=== PATIENT | female | born 1950 | race Two or more races ===

== ENCOUNTER 2019-04-07 20:07 | Emergency (ER) | payer MEDICARE, OTHER ==
[~2019-04-07] VITALS: Ht 165.1 cm; Wt 78.9 kg
[2019-04-07] MEDS ORDERED: ONDANSETRON HCL 4 MG/2 ML VIAL IV ONE (21:15)
[2019-04-07] MEDS ORDERED: MORPHINE SULFATE 4 MG/ML SYR/VIAL IV ONE (21:15)
[2019-04-07] MEDS ORDERED: HYDROmorphone HCL 2 MG/ML VL IV ONE (21:30)
[2019-04-07 22:55] LABS: INR < 0.93 (0.9-1.15); Partial Thromboplastin Time 22.7 sec (23.64-32.05)
[2019-04-07 22:56] LABS: Alanine Aminotransferase 18 U/L (13-56); Albumin 3.7 g/dL (3.4-5.0); Anion Gap 9 (5-15); Aspartate Aminotransferase 11 U/L (15-37); BUN/Creatinine Ratio 15.9; Blood Urea Nitrogen 17 mg/dL (7-18); Calcium 9.4 mg/dL (8.5-10.1); Carbon Dioxide 27 mmol/L (21-32); Chloride 106 mmol/L (98-107); GFR African American 66 mL/min; GFR Non-African American 55 mL/min; Glucose 114 mg/dL (74-106); Potassium 3.2 mmol/L (3.5-5.1); Sodium 142 mmol/L (136-145)
[2019-04-07 22:57] LABS: Hematocrit 41.6 % (36.0-46.0); Hemoglobin 13.5 g/dL (12.2-16.2); Mean Corpuscular Hemoglobin 27.9 pg (28.0-32.0); Mean Corpuscular Hgb Conc. 32.5 g/dL (32.0-36.0); Mean Corpuscular Volume 85.9 fL (80.0-100.0); Platelet Count (auto) 204 10^3/uL (140-450); Red Blood Cells 4.84 10^6/uL (4.0-5.20); Red Cell Distribution Width 14.4 % (11.8-14.3); White Blood Cell 6.2 10^3/uL (4.4-10.8)
[2019-04-07 23:01] LABS: Alkaline Phosphatase 77 U/L (45-117); Band Neutrophils % (manual) 0; Basophils % (manual) 0 (0.0-2.0); Bilirubin, Total 0.4 mg/dL (0.2-1.0); Blast Cells 0; Metamyelocytes % 0; Myelocytes % 0; Promyelocytes % 0; Reactive Lymphocytes 0; Total Protein 7.6 g/dL (6.4-8.2)
[2019-04-07 23:08] LABS: Urine Bacteria NONE SEEN /hpf (None Seen); Urine Blood Negative /uL (Negative); Urine Specific Gravity 1.014 (1.001-1.035); Urine WBC 1 /hpf (0 - 5)
[2019-04-07 23:31] LABS: Eosinophils % (manual) 2 (0-7); Lymphocytes % (manual) 69 (10.0-50.0); Monocytes % (manual) 8 (0-12)
[2019-04-08 00:20] VITALS: BP 91/68
== END 2019-04-08 00:28 | disposition home or self-care (01) ==
LOC: EDUNIT# 20:14 → ER 20:14
DX: S16.1XXA Strain of muscle, fascia and tendon at neck level, initial encounter (principal); S39.012A Strain of muscle, fascia and tendon of lower back, initial encounter; R51 Headache; M15.9 Polyosteoarthritis, unspecified; J44.9 Chronic obstructive pulmonary disease, unspecified; E11.9 Type 2 diabetes mellitus without complications; I11.0 Hypertensive heart disease with heart failure; I50.9 Heart failure, unspecified; E07.9 Disorder of thyroid, unspecified; F17.210 Nicotine dependence, cigarettes, uncomplicated; Z88.5 Allergy status to narcotic agent; Z90.710 Acquired absence of both cervix and uterus; W07.XXXA Fall from chair, initial encounter; Y93.89 Activity, other specified; Y99.8 Other external cause status; Y92.512 Supermarket, store or market as the place of occurrence of the external cause
CPT/HCPCS: 36415; 70450; 72125; 72131; 73700; 80053; 81001; 83880; 84484; 85007; 85027; 85610; 85730; 93005; 94761; 96374; 96375; J2405

== ENCOUNTER → 2019-04-07 | Outpatient (CLI) | payer MEDICARE, OTHER ==
[~2019-04-07] MED LIST: ALPR1TAB2 PO; ASPI325T4 PO; ATOR10TA PO; CARI-277 PO; ERGO2000 PO; HYDR-3682 PO; HYDR-4683 PO; LEV50T PO; OMEP20TA PO; POTA-167 PO
[2019-04-07 13:37] LABS: Cholesterol 143 mg/dL (< 200)
[2019-04-07 13:40] LABS: HDL Cholesterol 65 mg/dL (40-59); LDL Cholesterol 74 mg/dL (< 100); Triglycerides 68 mg/dL (< 150)
== END | disposition home or self-care (01) ==
LOC: LAB 12:18
PROVIDERS: ATTEND Internal Medicine
DX: E78.5 Hyperlipidemia, unspecified (principal); R79.89 Other specified abnormal findings of blood chemistry; I11.0 Hypertensive heart disease with heart failure; I50.9 Heart failure, unspecified; Z79.899 Other long term (current) drug therapy
CPT/HCPCS: 36415; 80061; 82306; 83036; 84443

== ENCOUNTER 2019-04-08 09:11 | Inpatient (IN) | payer MEDICARE, OTHER | END 2019-04-12 16:42 | disposition home or self-care (01) | LOC: ER 09:11 → TELE 09:12 → TELE-EAST 13:40 | DX: I95.0 Idiopathic hypotension (principal); E87.2 Acidosis; E87.6 Hypokalemia; I12.9 Hypertensive chronic kidney disease with stage 1 through stage 4 chronic kidney disease, or unspecified chronic kidney disease; N18.3 Chronic kidney disease, stage 3 (moderate); E86.1 Hypovolemia ==

== ENCOUNTER 2019-04-13 23:21 | Emergency (ER) | payer MEDICARE, OTHER ==
[~2019-04-13] VITALS: Ht 165.1 cm; Wt 78.9 kg
[2019-04-13 23:46] VITALS: BP 116/72
[2019-04-14] LABS: Basophils # (auto) 0.1 uL; Eosinophils # (auto) 0.2 uL; Eosinophils % (auto) 2.2 % (0.0-7.0); Hematocrit 37.5 % (36.0-46.0); Hemoglobin 12.5 g/dL (12.2-16.2); Lymphocytes # (auto) 3.8 uL; Lymphocytes % (auto) 53.5 % (10.0-50.0); Mean Corpuscular Hemoglobin 28.5 pg (28.0-32.0); Mean Corpuscular Hgb Conc. 33.3 g/dL (32.0-36.0); Mean Corpuscular Volume 85.6 fL (80.0-100.0); Monocytes # (auto) 0.4 uL; Monocytes % (auto) 5.1 % (0.0-12.0); Neutrophils # (auto) 2.6 uL; Neutrophils % (auto) 37.2 % (37.0-80.0); Nucleated Red Blood Cells % 0.1 %; Platelet Count (auto) 228 10^3/uL (140-450); Red Blood Cells 4.38 10^6/uL (4.0-5.20); Red Cell Distribution Width 14.5 % (11.8-14.3)
[2019-04-14 00:18] LABS: Urine Bacteria NONE SEEN /hpf (None Seen); Urine Blood Negative /uL (Negative); Urine Specific Gravity 1.018 (1.001-1.035); Urine WBC 1 /hpf (0 - 5)
[2019-04-14 00:19] LABS: Albumin 3.6 g/dL (3.4-5.0); BUN/Creatinine Ratio 14.6; Calcium 8.7 mg/dL (8.5-10.1); Potassium 3.8 mmol/L (3.5-5.1)
[2019-04-14 00:21] LABS: Bilirubin, Total 0.3 mg/dL (0.2-1.0); Total Protein 7.5 g/dL (6.4-8.2)
== END 2019-04-14 04:31 | disposition left against medical advice (07) ==
LOC: ER 23:23
DX: M54.5 Low back pain (principal); R10.9 Unspecified abdominal pain; R30.0 Dysuria; Z53.21 Procedure and treatment not carried out due to patient leaving prior to being seen by health care provider
CPT/HCPCS: 36415; 80053; 81001; 85025

== ENCOUNTER → 2019-04-21 | Outpatient (CLI) | payer MEDICARE, OTHER | END | disposition home or self-care (01) | LOC: LAB 16:10 | PROVIDERS: ATTEND Internal Medicine | DX: E78.5 Hyperlipidemia, unspecified (principal); I10 Essential (primary) hypertension; R79.89 Other specified abnormal findings of blood chemistry | CPT/HCPCS: 82270 ==

== ENCOUNTER → 2019-05-12 | Outpatient (CLI) | payer MEDICARE, OTHER ==
[~2019-05-12] MED LIST changes: +AMLO10CA42 PO; +ATEN-60 PO; +FURO20TA3 PO; +HYDR-531 PO; +POTA20TA53 PO
[2019-05-12 12:22] LABS: Free T4 (Free Thyroxine) 1.37 ng/dL (0.89-1.76)
[2019-05-12 12:23] LABS: Free T3 3.62 pg/mL (2.3-4.2)
== END | disposition home or self-care (01) ==
LOC: LAB 11:01
PROVIDERS: ATTEND Internal Medicine
DX: E11.9 Type 2 diabetes mellitus without complications (principal); E03.9 Hypothyroidism, unspecified; I11.0 Hypertensive heart disease with heart failure; I50.9 Heart failure, unspecified
CPT/HCPCS: 36415; 82043; 83036; 84439; 84443; 84481

== ENCOUNTER 2019-05-16 08:45 | Day surgery (SDC) | payer MEDICARE, OTHER ==
[2019-05-14 10:14] LABS: Basophils # (auto) 0 uL; Basophils % (auto) 0.8 % (0.0-2.0); Eosinophils # (auto) 0.1 uL; Eosinophils % (auto) 2.9 % (0.0-7.0); Hematocrit 39.4 % (36.0-46.0); Hemoglobin 13.3 g/dL (12.2-16.2); Lymphocytes # (auto) 2.5 uL; Mean Corpuscular Hemoglobin 28.9 pg (28.0-32.0); Mean Corpuscular Hgb Conc. 33.6 g/dL (32.0-36.0); Mean Corpuscular Volume 85.8 fL (80.0-100.0); Monocytes # (auto) 0.3 uL; Monocytes % (auto) 7.8 % (0.0-12.0); Neutrophils # (auto) 1.2 uL; Platelet Count (auto) 212 10^3/uL (140-450); Red Blood Cells 4.59 10^6/uL (4.0-5.20); Red Cell Distribution Width 14.9 % (11.8-14.3); White Blood Cell 4.1 10^3/uL (4.4-10.8)
[2019-05-14 10:16] LABS: Lymphocytes % (auto) 60.5 % (10.0-50.0)
[2019-05-14 10:24] LABS: INR 0.93 (0.9-1.15)
[2019-05-14 10:33] LABS: Potassium 3.5 mmol/L (3.5-5.1)
[2019-05-14 10:41] LABS: Bilirubin, Total 0.7 mg/dL (0.2-1.0); Calcium 9.6 mg/dL (8.5-10.1); Total Protein 7.6 g/dL (6.4-8.2)
[~2019-05-16] VITALS: Ht 166.4 cm; Wt 77.1 kg
[~2019-05-16 08:45] MED LIST changes: +AMLO10CA33 PO; -AMLO10CA42 PO; -HYDR-4683 PO; -OMEP20TA PO; -POTA-167 PO; +POTA-220 PO; -POTA20TA53 PO
[2019-05-16] MEDS ORDERED: ANGIOMAX 250 MG VIAL IV ONE (11:09)
[2019-05-16] MEDS ORDERED: LIDOCAINE 2%HCL (LOCAL ANESTH.) INJ 20ML MDV ONE (11:09)
[2019-05-16] MEDS ORDERED: MIDAZOLAM HCL 1MG/1ML-2 ML VIAL ONE (11:09)
[2019-05-16] MEDS ORDERED: SODIUM CHL 0.9% 0 ML ONE (11:09)
[2019-05-16] MEDS ORDERED: fentaNYL CITRATE 100 MCG/2 ML VL ONE (11:09)
[2019-05-16] MEDS ORDERED: IOHEXOL 350 MG/ML 100ML IJ ONE (11:11)
[2019-05-16] MEDS ORDERED: VERAPAMIL 2.5MG/ML INJ 2ML VIAL IV ONE (11:11)
[2019-05-16] MEDS ORDERED: ONDANSETRON HCL 4 MG/2 ML VIAL ONE (11:22)
[2019-05-16] MEDS ORDERED: HEPARIN SODIUM (PORCINE) 5000 UNITS/ML 1ML VIAL ONE (12:04)
== END 2019-05-16 14:05 | disposition home or self-care (01) ==
LOC: CATH 08:45
PROVIDERS: ATTEND Internal Medicine
DX: I20.9 Angina pectoris, unspecified (principal); I11.0 Hypertensive heart disease with heart failure; I50.9 Heart failure, unspecified; I25.2 Old myocardial infarction; E78.5 Hyperlipidemia, unspecified; E03.9 Hypothyroidism, unspecified; E11.9 Type 2 diabetes mellitus without complications; J44.9 Chronic obstructive pulmonary disease, unspecified; F17.210 Nicotine dependence, cigarettes, uncomplicated; F41.9 Anxiety disorder, unspecified; Z79.84 Long term (current) use of oral hypoglycemic drugs; Z79.82 Long term (current) use of aspirin; Z79.899 Other long term (current) drug therapy; Z90.710 Acquired absence of both cervix and uterus; Z98.890 Other specified postprocedural states; Z95.818 Presence of other cardiac implants and grafts; Z88.5 Allergy status to narcotic agent; Z82.49 Family history of ischemic heart disease and other diseases of the circulatory system
CPT/HCPCS: 36415; 80053; 85025; 85610; 85730; 93458; C1769; C1887; C1894; J1644; J2250; J3010; J7030; Q9967; 99152; 99153; J2405

== ENCOUNTER → 2019-06-17 | Outpatient (CLI) | payer MEDICARE, OTHER ==
[2019-06-17 10:21] LABS: Hematocrit 38.2 % (36.0-46.0); Hemoglobin 12.5 g/dL (12.2-16.2); Mean Corpuscular Hemoglobin 28.4 pg (28.0-32.0); Mean Corpuscular Hgb Conc. 32.8 g/dL (32.0-36.0); Mean Corpuscular Volume 86.4 fL (80.0-100.0); Platelet Count (auto) 206 10^3/uL (140-450); Red Blood Cells 4.42 10^6/uL (4.0-5.20); White Blood Cell 3.6 10^3/uL (4.4-10.8)
[2019-06-17 10:31] LABS: Band Neutrophils % (manual) 0; Blast Cells 0; Metamyelocytes % 0; Myelocytes % 0; Promyelocytes % 0; Reactive Lymphocytes 0
[2019-06-17 12:44] LABS: Basophils % (manual) 1 (0.0-2.0); Eosinophils % (manual) 1 (0-7); Lymphocytes % (manual) 63 (10.0-50.0); Monocytes % (manual) 8 (0-12)
== END | disposition home or self-care (01) ==
LOC: LAB 09:50
PROVIDERS: ATTEND Internal Medicine
DX: E11.9 Type 2 diabetes mellitus without complications (principal); I11.0 Hypertensive heart disease with heart failure; I50.9 Heart failure, unspecified
CPT/HCPCS: 36415; 85007; 85027

== ENCOUNTER → 2019-07-25 | Outpatient (CLI) | payer MEDICARE, OTHER ==
[2019-07-25 08:43] LABS: Hematocrit 37.5 % (36.0-46.0); Hemoglobin 12.3 g/dL (12.2-16.2); Mean Corpuscular Hemoglobin 28.4 pg (28.0-32.0); Mean Corpuscular Hgb Conc. 32.7 g/dL (32.0-36.0); Mean Corpuscular Volume 86.9 fL (80.0-100.0); Platelet Count (auto) 217 10^3/uL (140-450); Red Blood Cells 4.31 10^6/uL (4.0-5.20); Red Cell Distribution Width 15.3 % (11.8-14.3); White Blood Cell 4.5 10^3/uL (4.4-10.8)
[2019-07-25 08:54] LABS: Basophils % (manual) 0 (0.0-2.0); Blast Cells 0; Metamyelocytes % 0; Myelocytes % 0; Promyelocytes % 0; Reactive Lymphocytes 0
[2019-07-25 09:46] LABS: Band Neutrophils % (manual) 3; Eosinophils % (manual) 5 (0-7); Lymphocytes % (manual) 53 (10.0-50.0); Monocytes % (manual) 6 (0-12)
== END | disposition home or self-care (01) ==
LOC: LAB 08:19
PROVIDERS: ATTEND Internal Medicine
DX: E11.9 Type 2 diabetes mellitus without complications (principal); I11.0 Hypertensive heart disease with heart failure; I50.9 Heart failure, unspecified
CPT/HCPCS: 36415; 85007; 85027

== ENCOUNTER 2019-07-28 15:41 | Emergency (ER) | payer MEDICARE, OTHER ==
[~2019-07-28] VITALS: Ht 165.1 cm; Wt 78.9 kg
[2019-07-28] MEDS ORDERED: KETOROLAC TROMETH 60MG/2ML VIAL IM ONE (19:15)
[2019-07-28 19:30] VITALS: BP 140/88
== END 2019-07-28 21:32 | disposition home or self-care (01) ==
LOC: ER 15:41
DX: S73.102A Unspecified sprain of left hip, initial encounter (principal); M62.830 Muscle spasm of back; I48.91 Unspecified atrial fibrillation; J44.9 Chronic obstructive pulmonary disease, unspecified; E78.5 Hyperlipidemia, unspecified; I11.0 Hypertensive heart disease with heart failure; I50.9 Heart failure, unspecified; I25.2 Old myocardial infarction; E07.9 Disorder of thyroid, unspecified; F17.210 Nicotine dependence, cigarettes, uncomplicated; Z88.5 Allergy status to narcotic agent; Z79.82 Long term (current) use of aspirin; Z79.899 Other long term (current) drug therapy; Z90.710 Acquired absence of both cervix and uterus; Z98.61 Coronary angioplasty status; V49.49XA Driver injured in collision with other motor vehicles in traffic accident, initial encounter; Y93.89 Activity, other specified; Y99.8 Other external cause status; Y92.89 Other specified places as the place of occurrence of the external cause
CPT/HCPCS: 72100; 72220; 73502; 96372; 99283; J1885

== ENCOUNTER → 2019-08-28 | Outpatient (CLI) | payer MEDICARE, OTHER ==
[2019-08-28 08:55] LABS: Hematocrit 41.8 % (36.0-46.0); Hemoglobin 13.3 g/dL (12.2-16.2); Mean Corpuscular Hemoglobin 28.2 pg (28.0-32.0); Mean Corpuscular Hgb Conc. 31.9 g/dL (32.0-36.0); Mean Corpuscular Volume 88.1 fL (80.0-100.0); Platelet Count (auto) 212 10^3/uL (140-450); Red Blood Cells 4.74 10^6/uL (4.0-5.20); Red Cell Distribution Width 15.1 % (11.8-14.3)
[2019-08-28 08:58] LABS: Urine Blood Negative /uL (Negative)
[2019-08-28 09:05] LABS: Band Neutrophils % (manual) 0; Basophils % (manual) 0 (0.0-2.0); Blast Cells 0; Metamyelocytes % 0; Myelocytes % 0; Promyelocytes % 0; Reactive Lymphocytes 0
[2019-08-28 09:09] LABS: INR < 0.93 (0.9-1.15); Partial Thromboplastin Time 24.5 sec (23.64-32.05)
[2019-08-28 09:19] LABS: Eosinophils % (manual) 1 (0-7); Lymphocytes % (manual) 56 (10.0-50.0); Monocytes % (manual) 2 (0-12)
[2019-08-28 09:39] LABS: Albumin 3.8 g/dL (3.4-5.0); Calcium 8.9 mg/dL (8.5-10.1); Potassium 3.7 mmol/L (3.5-5.1)
[2019-08-28 09:41] LABS: BUN/Creatinine Ratio 17.6
[2019-08-28 09:43] LABS: Bilirubin, Total 0.5 mg/dL (0.2-1.0); Total Protein 7.8 g/dL (6.4-8.2)
== END | disposition home or self-care (01) ==
LOC: LAB 08:28
PROVIDERS: ATTEND Orthopaedic Surgery Adult Reconstructive Orthopaedic Surgery
DX: Z01.812 Encounter for preprocedural laboratory examination (principal); I11.0 Hypertensive heart disease with heart failure; I50.9 Heart failure, unspecified
CPT/HCPCS: 36415; 80053; 81003; 85007; 85027; 85610; 85730

== ENCOUNTER → 2019-09-12 | Outpatient (CLI) | payer MEDICARE, OTHER ==
[2019-09-12 08:53] LABS: Folate (Folic Acid) 12.6 ng/mL (5.38-24)
== END | disposition home or self-care (01) ==
LOC: LAB 07:26
PROVIDERS: ATTEND Psychiatry & Neurology Neurology
DX: G62.9 Polyneuropathy, unspecified (principal); I48.91 Unspecified atrial fibrillation; I11.0 Hypertensive heart disease with heart failure; I50.9 Heart failure, unspecified; J44.9 Chronic obstructive pulmonary disease, unspecified; E78.5 Hyperlipidemia, unspecified; I25.2 Old myocardial infarction; F17.210 Nicotine dependence, cigarettes, uncomplicated; Z98.61 Coronary angioplasty status; Z90.710 Acquired absence of both cervix and uterus; Z88.5 Allergy status to narcotic agent
CPT/HCPCS: 82607; 82746; 84155; 84165

== ENCOUNTER → 2019-10-07 | Outpatient (CLI) | payer MEDICARE, OTHER | END | disposition home or self-care (01) | LOC: XY 07:09 | PROVIDERS: ATTEND Internal Medicine | DX: I73.9 Peripheral vascular disease, unspecified (principal); M79.605 Pain in left leg; M79.604 Pain in right leg | CPT/HCPCS: 93925 ==

== ENCOUNTER → 2019-12-03 | Outpatient (CLI) | payer MEDICARE, OTHER ==
[2019-12-03 12:09] LABS: Urine WBC None Seen /hpf (0 - 5)
[2019-12-03 12:17] LABS: Basophils # (auto) 0 uL; Basophils % (auto) 0.8 % (0.0-2.0); Eosinophils # (auto) 0.1 uL; Hematocrit 38.5 % (36.0-46.0); Hemoglobin 12.8 g/dL (12.2-16.2); Mean Corpuscular Hemoglobin 29.5 pg (28.0-32.0); Mean Corpuscular Hgb Conc. 33.4 g/dL (32.0-36.0); Mean Corpuscular Volume 88.3 fL (80.0-100.0); Monocytes # (auto) 0.3 uL; Monocytes % (auto) 7.6 % (0.0-12.0); Neutrophils # (auto) 1.5 uL; Neutrophils % (auto) 38.6 % (37.0-80.0); Nucleated Red Blood Cells % 0.1 %; Platelet Count (auto) 184 10^3/uL (140-450); Red Blood Cells 4.36 10^6/uL (4.0-5.20); Red Cell Distribution Width 15.8 % (11.8-14.3); White Blood Cell 3.9 10^3/uL (4.4-10.8)
[2019-12-03 12:31] LABS: INR 0.99 (0.9-1.15); Partial Thromboplastin Time 23.9 sec (23.64-32.05)
[2019-12-03 12:59] LABS: Urine Bacteria NONE SEEN /hpf (None Seen); Urine Blood Negative /uL (Negative); Urine Specific Gravity 1.024 (1.001-1.035)
[2019-12-03 13:01] LABS: Potassium 3.6 mmol/L (3.5-5.1)
[2019-12-03 13:14] LABS: Albumin 3.5 g/dL (3.4-5.0); BUN/Creatinine Ratio 12.3; Bilirubin, Total 0.7 mg/dL (0.2-1.0); Calcium 8.9 mg/dL (8.5-10.1); Total Protein 7.2 g/dL (6.4-8.2)
== END | disposition home or self-care (01) ==
LOC: LAB 11:29
DX: Z01.818 Encounter for other preprocedural examination (principal); Z79.01 Long term (current) use of anticoagulants
CPT/HCPCS: 36415; 80053; 81001; 85025; 85610; 85730

== ENCOUNTER → 2019-12-29 | Outpatient (CLI) | payer MEDICARE, OTHER ==
[~2019-12-29] MED LIST changes: -AMLO10CA33 PO; -ASPI325T4 PO; -ATEN-60 PO; -FURO20TA3 PO; +NITR0.4S29 SL; -POTA-220 PO
[2019-12-29 14:21] LABS: Basophils # (auto) 0.1 10 ^3/uL (0-0.2); Basophils % (auto) 1.3 % (0.0-2.0); Eosinophils # (auto) 0.2 10 ^3/uL (0-0.8); Eosinophils % (auto) 5.1 % (0.0-7.0); Hematocrit 34.3 % (36.0-46.0); Hemoglobin 10.9 g/dL (12.2-16.2); Lymphocytes # (auto) 1.9 10 ^3/uL (0.4-5.4); Lymphocytes % (auto) 47.1 % (10.0-50.0); Mean Corpuscular Hemoglobin 28.6 pg (28.0-32.0); Mean Corpuscular Hgb Conc. 31.8 g/dL (32.0-36.0); Mean Corpuscular Volume 89.9 fL (80.0-100.0); Monocytes # (auto) 0.4 10 ^3/uL (0-1.3); Monocytes % (auto) 8.6 % (0.0-12.0); Neutrophils # (auto) 1.6 10 ^3/uL (1.6-8.6); Neutrophils % (auto) 37.9 % (37.0-80.0); Nucleated Red Blood Cells % 0.1 %; Platelet Count (auto) 350 10^3/uL (140-450); Red Blood Cells 3.81 10^6/uL (4.0-5.20); Red Cell Distribution Width 16.2 % (11.8-14.3); White Blood Cell 4.1 10^3/uL (4.4-10.8)
== END | disposition home or self-care (01) ==
LOC: LAB 14:03
PROVIDERS: ATTEND Internal Medicine
DX: D64.9 Anemia, unspecified (principal)
CPT/HCPCS: 36415; 85025

== ENCOUNTER → 2020-03-31 | Outpatient (CLI) | payer MEDICARE, OTHER ==
[~2020-03-31] MED LIST changes: +ATEN-60 PO; +BACL10TA PO; +CYCL10TA6 PO; +ERGO1CAP23 PO; +FAMO20TA10 PO; +FAMO40TA49 PO; +FURO1TAB33 PO; +HYDR25TA4 PO; +LEVO125T7 PO; +MAGNSOL PO; +METF-370 PO; +PANT40T PO; +POTA-180 PO; +POTA10TA51 PO; +RIVA20TA PO
[2020-03-31 13:16] LABS: Cholesterol 145 mg/dL (< 200); HDL Cholesterol 66 mg/dL (40-59); LDL Cholesterol 66 mg/dL (< 100); Triglycerides 75 mg/dL (< 150)
== END | disposition home or self-care (01) ==
LOC: LAB 11:58
PROVIDERS: ATTEND Internal Medicine
DX: E11.9 Type 2 diabetes mellitus without complications (principal); E78.5 Hyperlipidemia, unspecified; J44.9 Chronic obstructive pulmonary disease, unspecified
CPT/HCPCS: 36415; 80061; 82043; 83036

== ENCOUNTER 2020-04-13 09:17 | Inpatient (IN) | payer MEDICARE, OTHER ==
[~2020-04-13] VITALS: Ht 165.1 cm; Wt 79.8 kg
[~2020-04-13 09:17] MED LIST changes: -ATEN-60 PO; -BACL10TA PO; -CYCL10TA6 PO; -ERGO1CAP23 PO; -FAMO20TA10 PO; -FAMO40TA49 PO; -FURO1TAB33 PO; -HYDR25TA4 PO; -LEVO125T7 PO; -MAGNSOL PO; -METF-370 PO; -PANT40T PO; -POTA-180 PO; -POTA10TA51 PO; -RIVA20TA PO
[2020-04-13 10:05] LABS: Hematocrit 38.2 % (36.0-46.0); Hemoglobin 12.4 g/dL (12.2-16.2); Mean Corpuscular Hemoglobin 26.5 pg (28.0-32.0); Mean Corpuscular Hgb Conc. 32.4 g/dL (32.0-36.0); Mean Corpuscular Volume 81.9 fL (80.0-100.0); Platelet Count (auto) 211 10^3/uL (140-450); Red Blood Cells 4.66 10^6/uL (4.0-5.20); Red Cell Distribution Width 15.7 % (11.8-14.3); White Blood Cell 4.4 10^3/uL (4.4-10.8)
[2020-04-13 10:07] LABS: Band Neutrophils % (manual) 0; Basophils % (manual) 0 (0.0-2.0); Blast Cells 0; Metamyelocytes % 0; Myelocytes % 0; Promyelocytes % 0; Reactive Lymphocytes 0
[2020-04-13 10:20] LABS: INR 1.07 (0.9-1.15); Partial Thromboplastin Time 30.7 sec (23.64-32.05)
[2020-04-13 10:22] LABS: Eosinophils % (manual) 1 (0-7); Lymphocytes % (manual) 57 (10.0-50.0); Monocytes % (manual) 9 (0-12)
[2020-04-13 10:23] LABS: Albumin 3.7 g/dL (3.4-5.0); Anion Gap 9 (5-15); BUN/Creatinine Ratio 11.3; Blood Urea Nitrogen 12 mg/dL (7-18); Carbon Dioxide 25 mmol/L (21-32); Chloride 103 mmol/L (98-107); GFR African American 66 mL/min; GFR Non-African American 55 mL/min; Glucose 109 mg/dL (74-106); Magnesium 2.1 mg/dL (1.6-2.6); Potassium 3.4 mmol/L (3.5-5.1); Sodium 137 mmol/L (136-145)
[2020-04-13 10:28] LABS: Alanine Aminotransferase 19 U/L (13-56); Alkaline Phosphatase 70 U/L (45-117); Aspartate Aminotransferase 13 U/L (15-37); Bilirubin, Total 0.4 mg/dL (0.2-1.0); Total Protein 7.9 g/dL (6.4-8.2)
[2020-04-13] MEDS ORDERED: DEXTROSE (50%) 50ML SYRG IV PRN (14:45)
[2020-04-13] MEDS ORDERED: NITROGLYCERIN 0.4 MG SL TAB SL PRN (14:45)
[2020-04-13] MEDS ORDERED: ALPRAZolam 0.5 MG TAB PO PRN (14:45)
[2020-04-13] MEDS ORDERED: ACETAMINOPHEN 500 MG TAB PO PRN (14:45)
[2020-04-13] MEDS ORDERED: ONDANSETRON HCL 4 MG/2 ML VIAL IV PRN (14:45)
[2020-04-13] MEDS ORDERED: SODIUM CHLORIDE 0.9% 1,000 ML IV ONE (15:00)
[2020-04-13] MEDS: InsuLIN REG 1unit/0.01ml Soln (100units/ml) SC SCH ×2 (17:00→21:34)
[2020-04-13] MEDS: ACCU-CHEK COMFORT CURVE STRIP VI SCH ×2 (17:07→21:39)
[2020-04-13] MEDS: RIVAROXABAN 20 MG TAB PO SCH (18:00)
[2020-04-13] MEDS: IPRATROPIUM BROM 0.5 MG/2.5ML INH SOL NEB PRN (18:47)
[2020-04-13] MEDS: ALBUTEROL SULF 2.5 MG/0.5ML(0.5%) NEB SOLN NEB PRN (18:47)
[2020-04-13 19:34] VITALS: BP 101/65
[2020-04-13 20:26] VITALS: BP 105/76
[2020-04-13] MEDS: ATORVASTATIN 20 MG TAB PO SCH (21:35)
[2020-04-13] MEDS ORDERED: CARISOPRODOL 350 MG TAB PO PRN (22:00)
[2020-04-14] MEDS ORDERED: RIVA20TA PO (01:16)
[2020-04-14] MEDS ORDERED: CYCL10TA6 PO (01:16)
[2020-04-14] MEDS ORDERED: BACL10TA PO (01:16)
[2020-04-14] MEDS ORDERED: PANT40T PO (01:16)
[2020-04-14] MEDS ORDERED: HYDR25TA4 PO (01:16)
[2020-04-14] MEDS ORDERED: METF-370 PO (01:16)
[2020-04-14] MEDS ORDERED: FAMO20TA10 PO (01:16)
[2020-04-14] MEDS ORDERED: FURO1TAB33 PO (01:16)
[2020-04-14] MEDS ORDERED: POTA10TA51 PO (01:16)
[2020-04-14] MEDS ORDERED: ATEN-60 PO (01:16)
[2020-04-14 05:30] VITALS: BP 98/59
[2020-04-14] MEDS: ACCU-CHEK COMFORT CURVE STRIP VI SCH ×4 (06:17→21:59)
[2020-04-14] MEDS: InsuLIN REG 1unit/0.01ml Soln (100units/ml) SC SCH ×4 (06:17→22:00)
[2020-04-14] MEDS ORDERED: LEVOTHYROXINE SODIUM 50 MCG TAB PO SCH (07:00)
[2020-04-14 07:53] LABS: Potassium 3.4 mmol/L (3.5-5.1)
[2020-04-14 07:58] LABS: BUN/Creatinine Ratio 21.9; Calcium 8.9 mg/dL (8.5-10.1)
[2020-04-14 08:00] LABS: INR 1.06 (0.9-1.15); Partial Thromboplastin Time 27.6 sec (23.64-32.05)
[2020-04-14 08:09] LABS: Basophils # (auto) 0 10 ^3/uL (0-0.2); Basophils % (auto) 0.7 % (0.0-2.0); Eosinophils # (auto) 0.1 10 ^3/uL (0-0.8); Eosinophils % (auto) 1.8 % (0.0-7.0); Hematocrit 34.1 % (36.0-46.0); Hemoglobin 10.8 g/dL (12.2-16.2); Lymphocytes # (auto) 2.5 10 ^3/uL (0.4-5.4); Lymphocytes % (auto) 53.6 % (10.0-50.0); Mean Corpuscular Hemoglobin 26.4 pg (28.0-32.0); Mean Corpuscular Hgb Conc. 31.8 g/dL (32.0-36.0); Monocytes # (auto) 0.3 10 ^3/uL (0-1.3); Monocytes % (auto) 6.9 % (0.0-12.0); Neutrophils # (auto) 1.7 10 ^3/uL (1.6-8.6); Nucleated Red Blood Cells % 0.1 %; Platelet Count (auto) 180 10^3/uL (140-450); White Blood Cell 4.7 10^3/uL (4.4-10.8)
[2020-04-14] MEDS: ASPirin-EC 81 mg tab PO SCH (08:39)
[2020-04-14] MEDS: HYDROcodone-ACET 5/325MG TAB PO PRN (08:39)
[2020-04-14 09:00] VITALS: BP 103/66
[2020-04-14] MEDS: IPRATROPIUM BROM 0.5 MG/2.5ML INH SOL NEB PRN (09:51)
[2020-04-14] MEDS: ALBUTEROL SULF 2.5 MG/0.5ML(0.5%) NEB SOLN NEB PRN (09:51)
[2020-04-14] MEDS: LISINOPRIL 10 MG TAB PO SCH (10:00)
[2020-04-14] MEDS ORDERED: POTASSIUM EFFERVESENT TAB 25 MEQ PO ONE (12:00)
[2020-04-14 13:00] VITALS: BP 113/72
[2020-04-14 14:26] LABS: Urine Bacteria NONE SEEN /hpf (None Seen); Urine Blood Negative /uL (Negative); Urine Mucus FEW (None Seen); Urine Specific Gravity 1.026 (1.001-1.035); Urine WBC 1 /hpf (0 - 5)
[2020-04-14] MEDS ORDERED: NITR0.4S29 SL (15:39)
[2020-04-14] MEDS ORDERED: POTA-180 PO (15:42)
[2020-04-14] MEDS ORDERED: LEVO125T7 PO (15:43)
[2020-04-14] MEDS ORDERED: ERGO1CAP23 PO (15:45)
[2020-04-14] MEDS ORDERED: FAMO40TA49 PO (15:47)
[2020-04-14] MEDS ORDERED: MAGNSOL PO (15:51)
[2020-04-14] MEDS ORDERED: POLYETHYLENE GLYCOL 17 GM PWDR PO ONE (16:00)
[2020-04-14 16:54] VITALS: BP 109/73
[2020-04-14] MEDS: diphenhdrAMINE HCL 25 MG CAP PO PRN (18:56)
[2020-04-14] MEDS: RIVAROXABAN 20 MG TAB PO SCH (18:56)
[2020-04-14 22:00] VITALS: BP 112/74
[2020-04-14] MEDS: ATORVASTATIN 20 MG TAB PO SCH (22:00)
[2020-04-15 05:00] VITALS: BP 100/64
[2020-04-15 05:58] LABS: Basophils # (auto) 0 10 ^3/uL (0-0.2); Eosinophils # (auto) 0.1 10 ^3/uL (0-0.8); Monocytes # (auto) 0.4 10 ^3/uL (0-1.3); Neutrophils # (auto) 1.6 10 ^3/uL (1.6-8.6); White Blood Cell 4.4 10^3/uL (4.4-10.8)
[2020-04-15 06:00] LABS: Basophils % (auto) 0.8 % (0.0-2.0); Hematocrit 34.5 % (36.0-46.0); Hemoglobin 11.1 g/dL (12.2-16.2); Lymphocytes # (auto) 2.3 10 ^3/uL (0.4-5.4); Lymphocytes % (auto) 53.3 % (10.0-50.0); Mean Corpuscular Hemoglobin 26.5 pg (28.0-32.0); Mean Corpuscular Hgb Conc. 32.3 g/dL (32.0-36.0); Mean Corpuscular Volume 82.2 fL (80.0-100.0); Monocytes % (auto) 8.1 % (0.0-12.0); Neutrophils % (auto) 35.8 % (37.0-80.0); Nucleated Red Blood Cells % 0.1 %; Platelet Count (auto) 187 10^3/uL (140-450); Red Blood Cells 4.19 10^6/uL (4.0-5.20); Red Cell Distribution Width 15.8 % (11.8-14.3)
[2020-04-15] MEDS: ACCU-CHEK COMFORT CURVE STRIP VI SCH ×4 (06:17→22:49)
[2020-04-15] MEDS: InsuLIN REG 1unit/0.01ml Soln (100units/ml) SC SCH ×4 (06:18→22:00)
[2020-04-15 06:22] LABS: Anion Gap 5 (5-15); Blood Urea Nitrogen 20 mg/dL (7-18); Calcium 8.7 mg/dL (8.5-10.1); Carbon Dioxide 26 mmol/L (21-32); Chloride 110 mmol/L (98-107); Glucose 105 mg/dL (74-106); Potassium 4.2 mmol/L (3.5-5.1); Sodium 141 mmol/L (136-145)
[2020-04-15 06:25] LABS: GFR African American 84 mL/min; GFR Non-African American 69 mL/min
[2020-04-15] MEDS: LEVOTHYROXINE SODIUM 100 MCG TAB PO SCH (06:36)
[2020-04-15] MEDS ORDERED: ADENOSINE 62 MG in GIVE UN-DILUTED 0 ML IV ONE (08:00)
[2020-04-15 09:00] VITALS: BP 108/70
[2020-04-15] MEDS: ASPirin-EC 81 mg tab PO SCH (09:51)
[2020-04-15] MEDS: IPRATROPIUM BROM 0.5 MG/2.5ML INH SOL NEB PRN (09:57)
[2020-04-15] MEDS: ALBUTEROL SULF 2.5 MG/0.5ML(0.5%) NEB SOLN NEB PRN (09:57)
[2020-04-15] MEDS: LISINOPRIL 10 MG TAB PO SCH (11:14)
[2020-04-15] MEDS: POLYETHYLENE GLYCOL 17 GM PWDR PO SCH (11:14)
[2020-04-15 13:00] VITALS: BP 112/74
[2020-04-15] MEDS: diphenhdrAMINE HCL 25 MG CAP PO PRN (15:00)
[2020-04-15 16:54] VITALS: BP 96/63
[2020-04-15] MEDS: RIVAROXABAN 20 MG TAB PO SCH (17:00)
[2020-04-15] MEDS: HYDROcodone-ACET 5/325MG TAB PO PRN (20:42)
[2020-04-15] MEDS: ATORVASTATIN 20 MG TAB PO SCH (20:43)
[2020-04-15 22:00] VITALS: BP 106/59
[2020-04-16 05:00] VITALS: BP 112/79
[2020-04-16] MEDS: InsuLIN REG 1unit/0.01ml Soln (100units/ml) SC SCH ×2 (06:05→11:25)
[2020-04-16] MEDS: ACCU-CHEK COMFORT CURVE STRIP VI SCH ×2 (06:05→11:25)
[2020-04-16] MEDS: LEVOTHYROXINE SODIUM 100 MCG TAB PO SCH (06:06)
[2020-04-16] MEDS: ASPirin-EC 81 mg tab PO SCH (08:39)
[2020-04-16] MEDS: HYDROcodone-ACET 5/325MG TAB PO PRN (08:39)
[2020-04-16 09:00] VITALS: BP 114/69
[2020-04-16] MEDS: POLYETHYLENE GLYCOL 17 GM PWDR PO SCH (09:40)
[2020-04-16] MEDS ORDERED: ATENOLOL 25 MG TAB PO ONE (12:15)
[2020-04-16 12:19] VITALS: BP 107/80
[2020-04-16 12:57] VITALS: BP 107/80
[2020-04-16 13:30] VITALS: BP 102/77
== END 2020-04-16 14:02 | disposition home or self-care (01) | DRG 314 ==
LOC: ER 09:17 → TELE 09:18 → TELE-WESTW 20:14
PROVIDERS: ADMIT Nurse Practitioner Acute Care; ATTEND Internal Medicine
DX: I95.9 Hypotension, unspecified (principal); I50.33 Acute on chronic diastolic (congestive) heart failure; I25.10 Atherosclerotic heart disease of native coronary artery without angina pectoris; R00.2 Palpitations; J44.9 Chronic obstructive pulmonary disease, unspecified; F41.9 Anxiety disorder, unspecified; G89.29 Other chronic pain; E87.6 Hypokalemia; Z95.5 Presence of coronary angioplasty implant and graft; Z86.711 Personal history of pulmonary embolism; Z90.710 Acquired absence of both cervix and uterus; E11.21 Type 2 diabetes mellitus with diabetic nephropathy; E78.5 Hyperlipidemia, unspecified; I11.0 Hypertensive heart disease with heart failure; N28.1 Cyst of kidney, acquired; D63.8 Anemia in other chronic diseases classified elsewhere; M54.9 Dorsalgia, unspecified; Z79.84 Long term (current) use of oral hypoglycemic drugs; Z87.891 Personal history of nicotine dependence; E89.0 Postprocedural hypothyroidism; I48.91 Unspecified atrial fibrillation; Z79.899 Other long term (current) drug therapy; Z80.0 Family history of malignant neoplasm of digestive organs; Z80.52 Family history of malignant neoplasm of bladder; Z82.49 Family history of ischemic heart disease and other diseases of the circulatory system; Z83.3 Family history of diabetes mellitus; Z88.5 Allergy status to narcotic agent
CPT/HCPCS: 36415; 71045; 78452; 80048; 80053; 81001; 82962; 83036; 83735; 83880; 84443; 84484; 85007; 85025; 85027; 85379; 85610; 85730; 86141; 93005; 93017; 93306; 94640; 96360; G0378; J0153; J1815; J2405

== ENCOUNTER → 2020-04-29 | Outpatient (CLI) | payer MEDICARE, OTHER ==
[~2020-04-29] MED LIST changes: +ATEN-60 PO; +BACL10TA PO; -CARI-277 PO; +CYCL1TAB18 PO; +ERGO1CAP23 PO; -ERGO2000 PO; +FAMO40TA49 PO; +FURO1TAB33 PO; +HYDR25TA4 PO; -LEV50T PO; +LEVO125T7 PO; +MAGNSOL PO; +METF-370 PO; +PANT40T PO; +POTA-180 PO; +RIVA20TA PO
== END | disposition home or self-care (01) ==
LOC: LAB 11:20
PROVIDERS: ATTEND Internal Medicine
DX: E11.9 Type 2 diabetes mellitus without complications (principal); I10 Essential (primary) hypertension
CPT/HCPCS: 36415; 82270; 84443

== ENCOUNTER → 2020-07-02 | Outpatient (CLI) | payer MEDICARE, OTHER ==
[~2020-07-02] MED LIST changes: +CYCL10TA6 PO; -CYCL1TAB18 PO; -FAMO40TA49 PO; +FAMO40TA7 PO
== END | disposition home or self-care (01) ==
LOC: LAB 09:15
PROVIDERS: ATTEND Nurse Practitioner Family
DX: R12 Heartburn (principal)

== ENCOUNTER → 2020-07-21 | Outpatient (CLI) | payer MEDICARE, OTHER | END | disposition home or self-care (01) | LOC: XYW 07:16 | PROVIDERS: ATTEND Internal Medicine | DX: I08.1 Rheumatic disorders of both mitral and tricuspid valves (principal); I25.10 Atherosclerotic heart disease of native coronary artery without angina pectoris | CPT/HCPCS: 93306 ==

== ENCOUNTER → 2020-09-28 | Outpatient (CLI) | payer MEDICARE, OTHER ==
[2020-09-28 16:46] LABS: Amphetamine Screen, Urine NEGATIVE (NEGATIVE); Barbiturate Scree,Urine NEGATIVE (NEGATIVE); Benzodiazephine Screen, Urine NEGATIVE (NEGATIVE); Cannabinoid Screen, Urine NEGATIVE (NEGATIVE); Cocaine Screen, Urine NEGATIVE (NEGATIVE); Opiate Scree,Urine NEGATIVE (NEGATIVE); Phencyclidine Screen, Urine NEGATIVE (NEGATIVE)
[2020-09-28 17:08] LABS: Alcohol, Urine < 3.0 mg/dL (0-10)
== END | disposition home or self-care (01) ==
LOC: LAB 16:04
PROVIDERS: ATTEND Internal Medicine
DX: F11.20 Opioid dependence, uncomplicated (principal)
CPT/HCPCS: 80307

== ENCOUNTER → 2020-11-30 | Outpatient (CLI) | payer MEDICARE, OTHER | END | disposition home or self-care (01) | LOC: LAB 08:20 | PROVIDERS: ATTEND Internal Medicine | DX: E03.9 Hypothyroidism, unspecified (principal); I10 Essential (primary) hypertension; E11.9 Type 2 diabetes mellitus without complications | CPT/HCPCS: 36415; 84443 ==

== ENCOUNTER → 2021-01-26 | Day surgery (SDC) | payer MEDICARE, OTHER ==
[2021-01-21 14:54] LABS: INR 0.97 (0.9-1.15); Partial Thromboplastin Time 25.4 sec (23.0-31.2)
[2021-01-21 15:09] LABS: Hematocrit 35.7 % (36.0-46.0); Hemoglobin 11.9 g/dL (12.2-16.2); Mean Corpuscular Hemoglobin 28.9 pg (28.0-32.0); Mean Corpuscular Hgb Conc. 33.4 g/dL (32.0-36.0); Mean Corpuscular Volume 86.5 fL (80.0-100.0); Platelet Count (auto) 185 10^3/uL (140-450); Red Blood Cells 4.13 10^6/uL (4.0-5.20); Red Cell Distribution Width 15.3 % (11.8-14.3); White Blood Cell 4.5 10^3/uL (4.4-10.8)
[2021-01-21 15:17] LABS: Band Neutrophils % (manual) 0; Basophils % (manual) 0 (0.0-2.0); Blast Cells 0; Metamyelocytes % 0; Myelocytes % 0; Promyelocytes % 0; Reactive Lymphocytes 0
[2021-01-21 16:00] LABS: Eosinophils % (manual) 2 (0-7); Lymphocytes % (manual) 65 (10.0-50.0); Monocytes % (manual) 9 (0-12)
[~2021-01-26] VITALS: Ht 165.1 cm; Wt 77.1 kg
[~2021-01-26] MED LIST changes: +AMLO10CA33 PO; +ASPI325T4 PO; -BACL10TA PO; -CYCL10TA6 PO; -HYDR-3682 PO; -HYDR25TA4 PO; +LEVO100T8 PO; -LEVO125T7 PO; -MAGNSOL PO; -PANT40T PO; -RIVA20TA PO; +SODIUM CHLORIDE LOCK 10 ML ONE
[2021-01-26] MEDS: fentaNYL CITRATE 100 MCG/2 ML VL ONE ×3 (15:11→15:17)
[2021-01-26] MEDS: MIDAZOLAM HCL 5 MG/ML-1ML VIAL ONE ×3 (15:11→15:17)
[2021-01-26] MEDS: diphenhdrAMINE HCL 50 MG/1 ML VL ONE ×2 (15:12→15:14)
[2021-01-26 16:15] VITALS: BP 115/70
== END | disposition home or self-care (01) ==
LOC: GI 12:43
PROVIDERS: ATTEND Internal Medicine Gastroenterology
DX: R63.4 Abnormal weight loss (principal); K57.30 Diverticulosis of large intestine without perforation or abscess without bleeding; K64.8 Other hemorrhoids; J44.9 Chronic obstructive pulmonary disease, unspecified; I26.99 Other pulmonary embolism without acute cor pulmonale; E66.9 Obesity, unspecified; E11.9 Type 2 diabetes mellitus without complications; F41.9 Anxiety disorder, unspecified; I50.9 Heart failure, unspecified; I20.9 Angina pectoris, unspecified; M79.9 Soft tissue disorder, unspecified; K21.9 Gastro-esophageal reflux disease without esophagitis; Z86.010 Personal history of colon polyps; Z80.0 Family history of malignant neoplasm of digestive organs; Z95.5 Presence of coronary angioplasty implant and graft; Z87.891 Personal history of nicotine dependence; Z90.710 Acquired absence of both cervix and uterus; Z98.890 Other specified postprocedural states; Z82.49 Family history of ischemic heart disease and other diseases of the circulatory system; Z83.3 Family history of diabetes mellitus; Z80.52 Family history of malignant neoplasm of bladder; Z20.822 Contact with and (suspected) exposure to COVID-19; Z68.28 Body mass index [BMI] 28.0-28.9, adult; Z79.84 Long term (current) use of oral hypoglycemic drugs
CPT/HCPCS: 36415; 45378; 82962; 85007; 85027; 85610; 85730; J1200; J2250; J3010; J7030; U0003; G0500

== ENCOUNTER → 2021-02-25 | Day surgery (SDC) | payer MEDICARE, OTHER ==
[2021-02-22 12:51] LABS: Hematocrit 39.9 % (36.0-46.0); Mean Corpuscular Hemoglobin 28.3 pg (28.0-32.0); Mean Corpuscular Hgb Conc. 32.7 g/dL (32.0-36.0); Mean Corpuscular Volume 86.7 fL (80.0-100.0); Platelet Count (auto) 235 10^3/uL (140-450); Red Cell Distribution Width 15.9 % (11.8-14.3); White Blood Cell 4.5 10^3/uL (4.4-10.8)
[2021-02-22 13:00] LABS: INR 0.94 (0.9-1.15); Partial Thromboplastin Time 23.6 sec (23.0-31.2)
[2021-02-22 13:02] LABS: Band Neutrophils % (manual) 0; Basophils % (manual) 0 (0.0-2.0); Blast Cells 0; Eosinophils % (manual) 0 (0-7); Metamyelocytes % 0; Myelocytes % 0; Promyelocytes % 0; Reactive Lymphocytes 0
[2021-02-22 16:02] LABS: Lymphocytes % (manual) 63 (10.0-50.0); Monocytes % (manual) 7 (0-12)
[~2021-02-25] VITALS: Ht 162.6 cm; Wt 76.7 kg
[~2021-02-25] MED LIST changes: +LIDOCAINE VISCOUS 2% 15ML UD ONE; +SIMETHICONE 40 MG/0.6 ML ORAL DROP ONE; -SODIUM CHLORIDE LOCK 10 ML ONE; +diphenhdrAMINE HCL 50 MG/1 ML VL ONE
[2021-02-25] MEDS: fentaNYL CITRATE 100 MCG/2 ML VL ONE ×2 (11:55→15:40)
[2021-02-25] MEDS: MIDAZOLAM HCL 5 MG/ML-1ML VIAL ONE ×2 (11:55→11:58)
[2021-02-25 12:40] VITALS: BP 96/58
== END | disposition home or self-care (01) ==
LOC: GI 08:59
PROVIDERS: ATTEND Internal Medicine Gastroenterology
DX: K21.9 Gastro-esophageal reflux disease without esophagitis (principal); K29.70 Gastritis, unspecified, without bleeding; K44.9 Diaphragmatic hernia without obstruction or gangrene; K22.10 Ulcer of esophagus without bleeding; J44.9 Chronic obstructive pulmonary disease, unspecified; E11.9 Type 2 diabetes mellitus without complications; I10 Essential (primary) hypertension; H26.8 Other specified cataract; I50.9 Heart failure, unspecified; I25.10 Atherosclerotic heart disease of native coronary artery without angina pectoris; F41.9 Anxiety disorder, unspecified; F17.200 Nicotine dependence, unspecified, uncomplicated; Z88.5 Allergy status to narcotic agent; Z79.82 Long term (current) use of aspirin; Z90.710 Acquired absence of both cervix and uterus; Z80.0 Family history of malignant neoplasm of digestive organs; Z80.52 Family history of malignant neoplasm of bladder; Z20.822 Contact with and (suspected) exposure to COVID-19
CPT/HCPCS: 36415; 43239; 82962; 85007; 85027; 85610; 85730; J1200; J2250; J3010; J7030; U0003

== ENCOUNTER → 2021-05-16 | Outpatient (CLI) | payer MEDICARE, OTHER ==
[~2021-05-16] MED LIST changes: -LIDOCAINE VISCOUS 2% 15ML UD ONE; -SIMETHICONE 40 MG/0.6 ML ORAL DROP ONE; -diphenhdrAMINE HCL 50 MG/1 ML VL ONE
[2021-05-16 10:31] LABS: Cholesterol 180 mg/dL (< 200); HDL Cholesterol 80 mg/dL (40-59); LDL Cholesterol 84 mg/dL (< 100); Triglycerides 82 mg/dL (< 150)
== END | disposition home or self-care (01) ==
LOC: LAB 09:01
PROVIDERS: ATTEND Internal Medicine
DX: E11.9 Type 2 diabetes mellitus without complications (principal); E78.5 Hyperlipidemia, unspecified
CPT/HCPCS: 36415; 80061; 82043; 83036

== ENCOUNTER 2021-06-07 16:51 | Inpatient (IN) | payer MEDICARE, OTHER ==
[~2021-06-07] VITALS: Ht 166.4 cm; Wt 80.4 kg
[2021-06-07 20:29] LABS: Hematocrit 40.9 % (36.0-46.0); Hemoglobin 13.7 g/dL (12.2-16.2); Mean Corpuscular Hemoglobin 28.6 pg (28.0-32.0); Mean Corpuscular Hgb Conc. 33.4 g/dL (32.0-36.0); Mean Corpuscular Volume 85.8 fL (80.0-100.0); Red Blood Cells 4.77 10^6/uL (4.0-5.20); Red Cell Distribution Width 14.3 % (11.8-14.3); White Blood Cell 6.2 10^3/uL (4.4-10.8)
[2021-06-07 20:34] LABS: Band Neutrophils % (manual) 0; Basophils % (manual) 0 (0.0-2.0); Blast Cells 0; Metamyelocytes % 0; Myelocytes % 0; Promyelocytes % 0
[2021-06-07 20:50] LABS: Chloride 107 mmol/L (98-107); Sodium 138 mmol/L (136-145)
[2021-06-07 20:57] LABS: Alanine Aminotransferase 21 U/L (13-56); Albumin 3.8 g/dL (3.4-5.0); Alkaline Phosphatase 75 U/L (45-117); Anion Gap 6 (5-15); Aspartate Aminotransferase 17 U/L (15-37); Bilirubin, Total 0.3 mg/dL (0.2-1.0); Blood Urea Nitrogen 16 mg/dL (7-18); Calcium 8.8 mg/dL (8.5-10.1); Carbon Dioxide 25 mmol/L (21-32); GFR African American 66 mL/min; GFR Non-African American 54 mL/min; Glucose 115 mg/dL (74-106); Total Protein 8.6 g/dL (6.4-8.2)
[2021-06-07 21:07] LABS: Potassium 2.9 mmol/L (3.5-5.1)
[2021-06-07 21:43] LABS: Eosinophils % (manual) 1 (0-7); Lymphocytes % (manual) 54 (10.0-50.0); Monocytes % (manual) 9 (0-12); Reactive Lymphocytes 2
[2021-06-07] MEDS ORDERED: POTASSIUM CHL 20 Meq TABLET PO ONE (21:45)
[2021-06-07] MEDS ORDERED: LORazepam 0.5 MG TAB PO PRN (22:45)
[2021-06-07] MEDS ORDERED: ZOLPIDEM TARTRATE 5 MG TAB PO PRN (22:45)
[2021-06-07] MEDS ORDERED: ONDANSETRON HCL 4 MG/2 ML VIAL IV PRN (22:45)
[2021-06-07] MEDS ORDERED: METOPROLOL TARTRATE 1MG/1ML-5ML VIAL IV ONE (22:45)
[2021-06-07] MEDS ORDERED: DEXTROSE (50%) 50ML SYRG IV PRN (22:45)
[2021-06-07] MEDS ORDERED: NITROGLYCERIN 0.4 MG SL TAB SL PRN ×2 (22:45)
[2021-06-07] MEDS ORDERED: ALUM & MAG HYDROX-SIMETH LIQ(MAALOX) 30 ML PO ONE (22:45)
[2021-06-08] VITALS (7 sets, daily range): BP systolic 91–101; BP diastolic 48–67
[2021-06-08] MEDS: ENOXAPARIN SOD 80 MG/0.8ML SYRINGE SC SCH ×3 (00:55→21:03)
[2021-06-08] MEDS: SODIUM CHLORIDE 0.9% 1,000 ML IV SCH ×2 (01:21→22:45)
[2021-06-08 05:56] LABS: Basophils # (auto) 0 10 ^3/uL (0-0.2); Basophils % (auto) 0.8 % (0.0-2.0); Eosinophils # (auto) 0.1 10 ^3/uL (0-0.8); Eosinophils % (auto) 1.6 % (0.0-7.0); Hematocrit 34.9 % (36.0-46.0); Hemoglobin 11.9 g/dL (12.2-16.2); Lymphocytes # (auto) 2.7 10 ^3/uL (0.4-5.4); Lymphocytes % (auto) 47.6 % (10.0-50.0); Mean Corpuscular Hemoglobin 28.9 pg (28.0-32.0); Mean Corpuscular Volume 84.9 fL (80.0-100.0); Monocytes # (auto) 0.6 10 ^3/uL (0-1.3); Monocytes % (auto) 9.9 % (0.0-12.0); Neutrophils # (auto) 2.2 10 ^3/uL (1.6-8.6); Neutrophils % (auto) 40.1 % (37.0-80.0); Nucleated Red Blood Cells % 0.3 %; Red Blood Cells 4.11 10^6/uL (4.0-5.20); Red Cell Distribution Width 14.5 % (11.8-14.3); White Blood Cell 5.6 10^3/uL (4.4-10.8)
[2021-06-08 06:21] LABS: Chloride 109 mmol/L (98-107); Sodium 142 mmol/L (136-145)
[2021-06-08] MEDS: ACCU-CHEK COMFORT CURVE STRIP VI SCH ×4 (06:26→21:04)
[2021-06-08] MEDS: InsuLIN REG 1unit/0.01ml Soln (100units/ml) SC SCH ×4 (06:27→21:03)
[2021-06-08 06:44] LABS: Anion Gap 5 (5-15); BUN/Creatinine Ratio 16.5; Blood Urea Nitrogen 15 mg/dL (7-18); Calcium 8.5 mg/dL (8.5-10.1); Carbon Dioxide 28 mmol/L (21-32); Cholesterol 130 mg/dL (< 200); GFR African American 79 mL/min; GFR Non-African American 65 mL/min; Glucose 113 mg/dL (74-106); HDL Cholesterol 66 mg/dL (40-59); LDL Cholesterol 56 mg/dL (< 100); Triglycerides 74 mg/dL (< 150)
[2021-06-08] MEDS: DOCUSATE SOD 100 MG CAP PO SCH (09:42)
[2021-06-08] MEDS: POTASSIUM CHL 20 Meq TABLET PO SCH (09:42)
[2021-06-08] MEDS: CLOPIDOGREL BISULFATE 75 MG TAB PO SCH (09:43)
[2021-06-08] MEDS ORDERED: ASPirin 325 MG TAB PO SCH (10:00)
[2021-06-08] MEDS: FUROSEMIDE 20 MG TAB PO SCH (12:06)
[2021-06-08] MEDS: ATENOLOL 25 MG TAB PO SCH ×2 (12:07→21:03)
[2021-06-08] MEDS ORDERED: FERR325T20 PO (15:28)
[2021-06-08] MEDS ORDERED: ALEN70TA2 PO (15:28)
[2021-06-08] MEDS ORDERED: HYDR25TA4 PO (15:28)
[2021-06-08] MEDS ORDERED: ASCO500T11 PO (15:28)
[2021-06-08] MEDS ORDERED: EZET10TA22 PO (15:28)
[2021-06-08] MEDS ORDERED: CYCL0.05 EACHEYE (15:28)
[2021-06-08] MEDS ORDERED: ESOM40CA83 PO (15:28)
[2021-06-08] MEDS ORDERED: GABA300C10 PO (15:28)
[2021-06-08] MEDS ORDERED: UBRO50TA2 PO (15:28)
[2021-06-08] MEDS: ACETAMINOPHEN 325 MG TAB PO PRN (20:24)
[2021-06-08] MEDS: RESTASIS 0.05% EACHEYE SCH (21:04)
[2021-06-08] MEDS ORDERED: ATORVASTATIN 20 MG TAB PO SCH (22:00)
[2021-06-09 05:00] VITALS: BP 110/66
[2021-06-09] MEDS: ACCU-CHEK COMFORT CURVE STRIP VI SCH ×2 (06:14→11:41)
[2021-06-09] MEDS: InsuLIN REG 1unit/0.01ml Soln (100units/ml) SC SCH ×2 (06:14→11:30)
[2021-06-09 06:38] LABS: Magnesium 2.5 mg/dL (1.6-2.6); Potassium 3.7 mmol/L (3.5-5.1)
[2021-06-09] MEDS ORDERED: LEVOTHYROXINE SODIUM 100 MCG TAB PO SCH (07:00)
[2021-06-09 09:00] VITALS: BP 97/61
[2021-06-09] MEDS: ACETAMINOPHEN 325 MG TAB PO PRN (09:13)
[2021-06-09] MEDS: CLOPIDOGREL BISULFATE 75 MG TAB PO SCH (09:14)
[2021-06-09] MEDS: POTASSIUM CHL 20 Meq TABLET PO SCH (09:14)
[2021-06-09] MEDS: DOCUSATE SOD 100 MG CAP PO SCH (09:14)
[2021-06-09] MEDS: FUROSEMIDE 20 MG TAB PO SCH (09:15)
[2021-06-09] MEDS: ENOXAPARIN SOD 80 MG/0.8ML SYRINGE SC SCH (09:16)
[2021-06-09] MEDS: ATENOLOL 25 MG TAB PO SCH (09:18)
[2021-06-09] MEDS: RESTASIS 0.05% EACHEYE SCH (10:00)
[2021-06-09] MEDS ORDERED: ASPirin 81 mg TAB PO SCH (10:00)
[2021-06-09] MEDS ORDERED: GABAPENTIN 300 MG CAP PO SCH (10:00)
[2021-06-09] MEDS ORDERED: ASCORBIC ACID 500 MG TAB PO SCH (10:00)
[2021-06-09] MEDS ORDERED: PANTOPRAZOLE 40 MG TAB PO SCH (10:00)
[2021-06-09] MEDS ORDERED: SODIUM CHLORIDE 0.9% 1,000 ML IV ONE (13:45)
[2021-06-09 15:03] VITALS: BP 97/61
== END 2021-06-09 16:25 | disposition home or self-care (01) | DRG 291 ==
LOC: ER 16:51 → TELE 22:32 → TELE-WESTW 23:23
PROVIDERS: ADMIT Hospitalist; ATTEND Internal Medicine
DX: I11.0 Hypertensive heart disease with heart failure (principal); N17.0 Acute kidney failure with tubular necrosis; I25.10 Atherosclerotic heart disease of native coronary artery without angina pectoris; I50.33 Acute on chronic diastolic (congestive) heart failure; R07.89 Other chest pain; J44.9 Chronic obstructive pulmonary disease, unspecified; M81.0 Age-related osteoporosis without current pathological fracture; I48.91 Unspecified atrial fibrillation; Z20.822 Contact with and (suspected) exposure to COVID-19; D64.9 Anemia, unspecified; E11.9 Type 2 diabetes mellitus without complications; E78.5 Hyperlipidemia, unspecified; E87.6 Hypokalemia; E89.0 Postprocedural hypothyroidism; F17.210 Nicotine dependence, cigarettes, uncomplicated; F41.9 Anxiety disorder, unspecified; Z80.9 Family history of malignant neoplasm, unspecified; Z83.3 Family history of diabetes mellitus; Z85.038 Personal history of other malignant neoplasm of large intestine; Z79.899 Other long term (current) drug therapy; Z86.711 Personal history of pulmonary embolism; Z90.710 Acquired absence of both cervix and uterus; Z95.5 Presence of coronary angioplasty implant and graft; I25.2 Old myocardial infarction; Z88.5 Allergy status to narcotic agent; Z88.8 Allergy status to other drugs, medicaments and biological substances
CPT/HCPCS: 36415; 71045; 80048; 80053; 80061; 82962; 83735; 83880; 84132; 84443; 84484; 85007; 85025; 85027; 85379; 87426; 93005; 93306; 97116; 97163; G0378

== ENCOUNTER → 2021-06-13 | Outpatient (CLI) | payer MEDICARE, OTHER ==
[~2021-06-13] MED LIST changes: +ALEN70TA2 PO; +ASCO500T11 PO; -ATEN-60 PO; +CYCL0.05 EACHEYE; +ESOM40CA83 PO; +EZET10TA22 PO; +FERR325T20 PO; +GABA300C10 PO; -HYDR-531 PO; +HYDR25TA4 PO; +UBRO50TA2 PO
[2021-06-13 10:09] LABS: Basophils # (auto) 0 10 ^3/uL (0-0.2); Basophils % (auto) 0.9 % (0.0-2.0); Eosinophils # (auto) 0.2 10 ^3/uL (0-0.8); Eosinophils % (auto) 3.8 % (0.0-7.0); Hematocrit 36.4 % (36.0-46.0); Hemoglobin 12.3 g/dL (12.2-16.2); Lymphocytes % (auto) 46.8 % (10.0-50.0); Mean Corpuscular Hemoglobin 28.9 pg (28.0-32.0); Mean Corpuscular Hgb Conc. 33.9 g/dL (32.0-36.0); Mean Corpuscular Volume 85.3 fL (80.0-100.0); Monocytes # (auto) 0.3 10 ^3/uL (0-1.3); Monocytes % (auto) 7.6 % (0.0-12.0); Neutrophils # (auto) 1.7 10 ^3/uL (1.6-8.6); Neutrophils % (auto) 40.9 % (37.0-80.0); Nucleated Red Blood Cells % 0.1 %; Red Blood Cells 4.27 10^6/uL (4.0-5.20); Red Cell Distribution Width 14.5 % (11.8-14.3); White Blood Cell 4.2 10^3/uL (4.4-10.8)
[2021-06-13 10:22] LABS: Albumin 3.3 g/dL (3.4-5.0); Potassium 3.7 mmol/L (3.5-5.1)
[2021-06-13 10:30] LABS: BUN/Creatinine Ratio 12.8; Bilirubin, Total 0.5 mg/dL (0.2-1.0); Calcium 9.4 mg/dL (8.5-10.1); Total Protein 8.2 g/dL (6.4-8.2)
== END | disposition home or self-care (01) ==
LOC: LAB 09:37
PROVIDERS: ATTEND Internal Medicine
DX: E11.9 Type 2 diabetes mellitus without complications (principal); E78.5 Hyperlipidemia, unspecified
CPT/HCPCS: 36415; 80053; 80061; 83036; 85025; 85379

== ENCOUNTER → 2021-07-21 | Outpatient (CLI) | payer MEDICARE, OTHER ==
[2021-07-21 08:47] LABS: Urine WBC None Seen /hpf (0 - 5)
[2021-07-21 08:57] LABS: Hematocrit 35.7 % (36.0-46.0); Hemoglobin 11.9 g/dL (12.2-16.2); Mean Corpuscular Hemoglobin 28.9 pg (28.0-32.0); Mean Corpuscular Hgb Conc. 33.3 g/dL (32.0-36.0); Mean Corpuscular Volume 86.7 fL (80.0-100.0); Red Blood Cells 4.11 10^6/uL (4.0-5.20); Red Cell Distribution Width 15.6 % (11.8-14.3); White Blood Cell 3.3 10^3/uL (4.4-10.8)
[2021-07-21 09:06] LABS: Urine Bacteria NONE SEEN /hpf (None Seen); Urine Blood TRACE /uL (Negative); Urine Mucus FEW (None Seen); Urine Specific Gravity 1.025 (1.001-1.035)
[2021-07-21 09:15] LABS: Band Neutrophils % (manual) 0; Basophils % (manual) 0 (0.0-2.0); Blast Cells 0; Metamyelocytes % 0; Myelocytes % 0; Promyelocytes % 0; Reactive Lymphocytes 0
[2021-07-21 09:27] LABS: Potassium 3.9 mmol/L (3.5-5.1)
[2021-07-21 09:33] LABS: Albumin 3.2 g/dL (3.4-5.0); BUN/Creatinine Ratio 12.9; Bilirubin, Total 0.7 mg/dL (0.2-1.0); Calcium 9.1 mg/dL (8.5-10.1); Total Protein 6.9 g/dL (6.4-8.2)
[2021-07-21 12:34] LABS: Eosinophils % (manual) 3 (0-7); Lymphocytes % (manual) 71 (10.0-50.0); Monocytes % (manual) 8 (0-12)
== END | disposition home or self-care (01) ==
LOC: LAB 08:27
PROVIDERS: ATTEND Internal Medicine
DX: E11.9 Type 2 diabetes mellitus without complications (principal); E03.9 Hypothyroidism, unspecified; E78.5 Hyperlipidemia, unspecified; D72.819 Decreased white blood cell count, unspecified; Z79.899 Other long term (current) drug therapy; R63.4 Abnormal weight loss; Z86.010 Personal history of colon polyps
CPT/HCPCS: 36415; 80053; 81001; 82150; 82378; 83690; 84443; 85007; 85027

== ENCOUNTER → 2021-08-23 | Outpatient (CLI) | payer MEDICARE, OTHER ==
[2021-08-23 09:16] LABS: Hemoglobin 13.1 g/dL (12.2-16.2); Mean Corpuscular Hgb Conc. 33.7 g/dL (32.0-36.0); Mean Corpuscular Volume 86.2 fL (80.0-100.0); Red Blood Cells 4.52 10^6/uL (4.0-5.20); Red Cell Distribution Width 15.7 % (11.8-14.3)
[2021-08-23 09:38] LABS: Band Neutrophils % (manual) 0; Basophils % (manual) 0 (0.0-2.0); Blast Cells 0; Metamyelocytes % 0; Myelocytes % 0; Promyelocytes % 0; Reactive Lymphocytes 0
[2021-08-23 09:53] LABS: Albumin 3.5 g/dL (3.4-5.0); Calcium 8.9 mg/dL (8.5-10.1); Potassium 3.7 mmol/L (3.5-5.1)
[2021-08-23 09:56] LABS: BUN/Creatinine Ratio 19.1; Bilirubin, Total 0.7 mg/dL (0.2-1.0); CRP High Sensitivity 0.1 mg/dL (< 0.3); Total Protein 7.8 g/dL (6.4-8.2)
[2021-08-23 10:03] LABS: Free T4 (Free Thyroxine) 1.23 ng/dL (0.89-1.76)
[2021-08-23 10:04] LABS: Folate (Folic Acid) 17.59 ng/mL (5.38-24)
[2021-08-23 10:11] LABS: Thyroid Stimulating Hormone 3.29 uIU/mL (0.358-3.74)
[2021-08-23 10:46] LABS: Eosinophils % (manual) 2 (0-7); Lymphocytes % (manual) 60 (10.0-50.0); Monocytes % (manual) 9 (0-12)
[2021-08-25 12:53] LABS: Hepatitis A Ab IgM Negative
[2021-08-25 13:18] LABS: Hepatitis B Core IgM Negative
[2021-08-25 13:33] LABS: Hepatitis C Antibody Negative (Negative)
== END | disposition home or self-care (01) ==
LOC: LAB 08:12
PROVIDERS: ATTEND Internal Medicine
DX: D72.819 Decreased white blood cell count, unspecified (principal)
CPT/HCPCS: 36415; 80053; 80074; 82607; 82746; 83010; 83615; 84439; 84443; 85007; 85027; 85652; 86038; 86141; 86225; 86256; 86703

== ENCOUNTER 2021-09-11 03:13 | Emergency (ER) | payer MEDICARE, OTHER ==
[~2021-09-11] VITALS: Ht 167.6 cm; Wt 68.0 kg
[2021-09-11 04:32] LABS: Basophils # (auto) 0 10 ^3/uL (0-0.2); Basophils % (auto) 0.6 % (0.0-2.0); Eosinophils # (auto) 0.1 10 ^3/uL (0-0.8); Eosinophils % (auto) 1.5 % (0.0-7.0); Hematocrit 42.8 % (36.0-46.0); Hemoglobin 13.8 g/dL (12.2-16.2); Lymphocytes # (auto) 3.3 10 ^3/uL (0.4-5.4); Mean Corpuscular Hemoglobin 28.5 pg (28.0-32.0); Mean Corpuscular Hgb Conc. 32.2 g/dL (32.0-36.0); Mean Corpuscular Volume 88.3 fL (80.0-100.0); Monocytes # (auto) 0.4 10 ^3/uL (0-1.3); Monocytes % (auto) 6.3 % (0.0-12.0); Neutrophils # (auto) 2.3 10 ^3/uL (1.6-8.6); Neutrophils % (auto) 37.6 % (37.0-80.0); Nucleated Red Blood Cells % 0.1 %; Red Blood Cells 4.85 10^6/uL (4.0-5.20)
[2021-09-11 05:10] LABS: Albumin 3.7 g/dL (3.4-5.0); Calcium 9.2 mg/dL (8.5-10.1); Magnesium 2.4 mg/dL (1.6-2.6); Potassium 3.8 mmol/L (3.5-5.1)
[2021-09-11 05:17] LABS: BUN/Creatinine Ratio 21.2; Bilirubin, Total 0.6 mg/dL (0.2-1.0); Total Protein 7.6 g/dL (6.4-8.2)
[2021-09-11 05:55] LABS: INR 0.94 (0.9-1.15); Partial Thromboplastin Time 21.9 sec (23.6-33.0)
[2021-09-11 09:01] LABS: Urine Bacteria NONE SEEN /hpf (None Seen); Urine Blood Negative /uL (Negative); Urine Specific Gravity 1.026 (1.001-1.035); Urine WBC <1 /hpf (0 - 5)
[2021-09-11 10:00] VITALS: BP 114/72
== END 2021-09-11 10:44 | disposition home or self-care (01) ==
LOC: ER 03:13 → EDBD 03:13 → ER 10:44
DX: N39.0 Urinary tract infection, site not specified (principal); I11.0 Hypertensive heart disease with heart failure; I50.9 Heart failure, unspecified; I48.91 Unspecified atrial fibrillation; I25.2 Old myocardial infarction; E11.9 Type 2 diabetes mellitus without complications; E78.5 Hyperlipidemia, unspecified; E03.9 Hypothyroidism, unspecified; J44.9 Chronic obstructive pulmonary disease, unspecified; F17.210 Nicotine dependence, cigarettes, uncomplicated; Z87.11 Personal history of peptic ulcer disease; Z90.710 Acquired absence of both cervix and uterus; Z90.89 Acquired absence of other organs; Z88.5 Allergy status to narcotic agent
CPT/HCPCS: 36415; 71045; 74176; 80053; 81001; 82150; 82962; 83690; 83735; 84443; 84484; 85025; 85610; 85730; 93005

== ENCOUNTER → 2021-11-01 | Outpatient (CLI) | payer MEDICARE, OTHER | END | disposition home or self-care (01) | LOC: LAB 08:40 | PROVIDERS: ATTEND Internal Medicine | DX: E11.9 Type 2 diabetes mellitus without complications (principal) | CPT/HCPCS: 36415; 83036 ==

== ENCOUNTER → 2021-12-14 | Day surgery (SDC) | payer MEDICARE, OTHER ==
[2021-12-12 09:03] LABS: Hematocrit 39.7 % (36.0-46.0); Hemoglobin 12.7 g/dL (12.2-16.2); Mean Corpuscular Hemoglobin 28.7 pg (28.0-32.0); Mean Corpuscular Volume 89.7 fL (80.0-100.0); Red Blood Cells 4.42 10^6/uL (4.0-5.20); Red Cell Distribution Width 14.9 % (11.8-14.3); White Blood Cell 3.8 10^3/uL (4.4-10.8)
[2021-12-12 09:06] LABS: Urine Bacteria FEW /hpf (None Seen); Urine Blood Negative /uL (Negative); Urine Mucus FEW (None Seen); Urine Specific Gravity 1.019 (1.001-1.035); Urine WBC 1 /hpf (0 - 5)
[2021-12-12 09:09] LABS: Basophils % (manual) 0 (0.0-2.0); Blast Cells 0; Metamyelocytes % 0; Myelocytes % 0; Promyelocytes % 0; Reactive Lymphocytes 0
[2021-12-12 09:17] LABS: INR 0.96 (0.9-1.15); Partial Thromboplastin Time 24.3 sec (23.6-33.0)
[2021-12-12 09:53] LABS: Potassium 4.1 mmol/L (3.5-5.1)
[2021-12-12 10:00] LABS: Albumin 3.7 g/dL (3.4-5.0); BUN/Creatinine Ratio 14.2; Bilirubin, Total 0.7 mg/dL (0.2-1.0); Calcium 9.5 mg/dL (8.5-10.1); Total Protein 7.5 g/dL (6.4-8.2)
[2021-12-12 11:38] LABS: Band Neutrophils % (manual) 1; Eosinophils % (manual) 5 (0-7); Lymphocytes % (manual) 54 (10.0-50.0); Monocytes % (manual) 6 (0-12)
[~2021-12-14] VITALS: Ht 165.1 cm; Wt 71.2 kg
[~2021-12-14] MED LIST changes: +BACITRACIN TOP OINT 1 UD PKG TOP ONE; +HYDROmorphone HCL 2 MG/ML VL IV PRN; +LIDOCAINE 1% HCL (LOCAL ANESTH.) INJ 20ML MDV ONE; +LIDOCAINE 2% (LOCAL ANESTH.) PF 5ml SDV ONE; +MIDAZOLAM HCL 2MG/2ML 2ml VIAL (1mg/ml) ONE; +NEOMYCIN-BACITRACIN-POLYM 15GM TOP OINT TOP ONE; +ONDANSETRON HCL 4 MG/2 ML VIAL IV PRN; +ONDANSETRON HCL 4 MG/2 ML VIAL ONE; +PROPOFOL 10 MG/ML 20 ML IV ONE; +ROPIVACAINE 0.5% (5MG/ML) 20ML AMPULE IJ ONE; +ceFAZolin 1GM/50ML 100 ML IV ONE; +fentaNYL CITRATE 5 ML ONE; +methylPREDNISolone ACETATE 80 MG/ML VL ONE
[2021-12-14 08:35] VITALS: BP 122/88
== END | disposition home or self-care (01) ==
LOC: SUR 06:07
PROVIDERS: ATTEND Podiatrist Foot & Ankle Surgery
DX: M72.2 Plantar fascial fibromatosis (principal); F17.200 Nicotine dependence, unspecified, uncomplicated; F41.9 Anxiety disorder, unspecified; I25.10 Atherosclerotic heart disease of native coronary artery without angina pectoris; I11.0 Hypertensive heart disease with heart failure; I50.9 Heart failure, unspecified; J44.9 Chronic obstructive pulmonary disease, unspecified; Z90.710 Acquired absence of both cervix and uterus; Z82.49 Family history of ischemic heart disease and other diseases of the circulatory system; Z83.3 Family history of diabetes mellitus; Z20.822 Contact with and (suspected) exposure to COVID-19; K21.9 Gastro-esophageal reflux disease without esophagitis; Z95.5 Presence of coronary angioplasty implant and graft; Z88.6 Allergy status to analgesic agent; Z98.890 Other specified postprocedural states; Z79.899 Other long term (current) drug therapy; Z98.891 History of uterine scar from previous surgery
CPT/HCPCS: 28062; 36415; 80053; 81001; 82962; 85007; 85027; 85610; 85730; J0690; J1040; J2001; J2250; J2405; J2704; J2795; J3010; U0003

== ENCOUNTER → 2022-01-10 | Outpatient (CLI) | payer MEDICARE, OTHER ==
[~2022-01-10] MED LIST changes: -BACITRACIN TOP OINT 1 UD PKG TOP ONE; -HYDROmorphone HCL 2 MG/ML VL IV PRN; -LIDOCAINE 1% HCL (LOCAL ANESTH.) INJ 20ML MDV ONE; -LIDOCAINE 2% (LOCAL ANESTH.) PF 5ml SDV ONE; -MIDAZOLAM HCL 2MG/2ML 2ml VIAL (1mg/ml) ONE; -NEOMYCIN-BACITRACIN-POLYM 15GM TOP OINT TOP ONE; -ONDANSETRON HCL 4 MG/2 ML VIAL IV PRN; -ONDANSETRON HCL 4 MG/2 ML VIAL ONE; -PROPOFOL 10 MG/ML 20 ML IV ONE; -ROPIVACAINE 0.5% (5MG/ML) 20ML AMPULE IJ ONE; -ceFAZolin 1GM/50ML 100 ML IV ONE; -fentaNYL CITRATE 5 ML ONE; -methylPREDNISolone ACETATE 80 MG/ML VL ONE
[2022-01-10 09:30] LABS: Hematocrit 38.5 % (36.0-46.0); Hemoglobin 12.8 g/dL (12.2-16.2); Mean Corpuscular Hemoglobin 29.5 pg (28.0-32.0); Mean Corpuscular Hgb Conc. 33.3 g/dL (32.0-36.0); Mean Corpuscular Volume 88.4 fL (80.0-100.0); Red Blood Cells 4.35 10^6/uL (4.0-5.20); Red Cell Distribution Width 14.8 % (11.8-14.3); White Blood Cell 3.9 10^3/uL (4.4-10.8)
[2022-01-10 09:37] LABS: Band Neutrophils % (manual) 0; Basophils % (manual) 0 (0.0-2.0); Blast Cells 0; Eosinophils % (manual) 0 (0-7); Metamyelocytes % 0; Myelocytes % 0; Promyelocytes % 0; Reactive Lymphocytes 0
[2022-01-10 09:54] LABS: Urine Bacteria NONE SEEN /hpf (None Seen); Urine Blood Negative /uL (Negative); Urine WBC 1 /hpf (0 - 5)
[2022-01-10 11:04] LABS: Lymphocytes % (manual) 74 (10.0-50.0); Monocytes % (manual) 9 (0-12)
== END | disposition home or self-care (01) ==
LOC: LAB 08:50
PROVIDERS: ATTEND Internal Medicine
DX: E11.9 Type 2 diabetes mellitus without complications (principal); D72.819 Decreased white blood cell count, unspecified
CPT/HCPCS: 36415; 81001; 85007; 85027

== ENCOUNTER → 2022-02-20 | Outpatient (CLI) | payer MEDICARE, OTHER ==
[2022-02-20 09:58] LABS: Hematocrit 41.4 % (36.0-46.0); Hemoglobin 13.9 g/dL (12.2-16.2); Mean Corpuscular Hemoglobin 29.7 pg (28.0-32.0); Mean Corpuscular Hgb Conc. 33.5 g/dL (32.0-36.0); Mean Corpuscular Volume 88.6 fL (80.0-100.0); Red Blood Cells 4.67 10^6/uL (4.0-5.20); Red Cell Distribution Width 14.4 % (11.8-14.3); White Blood Cell 4.6 10^3/uL (4.4-10.8)
[2022-02-20 10:26] LABS: Band Neutrophils % (manual) 0; Basophils % (manual) 0 (0.0-2.0); Blast Cells 0; Metamyelocytes % 0; Myelocytes % 0; Promyelocytes % 0; Reactive Lymphocytes 0
[2022-02-20 11:02] LABS: Eosinophils % (manual) 4 (0-7); Lymphocytes % (manual) 55 (10.0-50.0); Monocytes % (manual) 2 (0-12)
== END | disposition home or self-care (01) ==
LOC: LAB 09:17
PROVIDERS: ATTEND Internal Medicine
DX: E11.9 Type 2 diabetes mellitus without complications (principal); D72.819 Decreased white blood cell count, unspecified; I10 Essential (primary) hypertension
CPT/HCPCS: 36415; 82043; 83036; 85007; 85027

== ENCOUNTER → 2022-02-22 | Outpatient (CLI) | payer MEDICARE, OTHER | END | disposition home or self-care (01) | LOC: LAB 09:08 | PROVIDERS: ATTEND Internal Medicine | DX: E11.9 Type 2 diabetes mellitus without complications (principal); D72.819 Decreased white blood cell count, unspecified; I10 Essential (primary) hypertension | CPT/HCPCS: 82270 ==

== ENCOUNTER → 2022-09-11 | Outpatient (CLI) | payer MEDICARE, OTHER ==
[2022-09-11 08:06] LABS: Hematocrit 41.3 % (36.0-46.0); Hemoglobin 13.7 g/dL (12.2-16.2); Mean Corpuscular Hemoglobin 30.2 pg (28.0-32.0); Mean Corpuscular Hgb Conc. 33.1 g/dL (32.0-36.0); Mean Corpuscular Volume 91.3 fL (80.0-100.0); Red Blood Cells 4.52 10^6/uL (4.0-5.20); Red Cell Distribution Width 13.8 % (11.8-14.3); White Blood Cell 3.3 10^3/uL (4.4-10.8)
[2022-09-11 08:09] LABS: Basophils % (manual) 0 (0.0-2.0); Blast Cells 0; Eosinophils % (manual) 0 (0-7); Metamyelocytes % 0; Myelocytes % 0; Promyelocytes % 0; Reactive Lymphocytes 0
[2022-09-11 09:12] LABS: Cholesterol 203 mg/dL (< 200); HDL Cholesterol 76 mg/dL (40-59); LDL Cholesterol 119 mg/dL (< 100); Triglycerides 120 mg/dL (< 150)
[2022-09-11 09:48] LABS: Band Neutrophils % (manual) 6; Lymphocytes % (manual) 11 (10.0-50.0); Monocytes % (manual) 7 (0-12)
== END | disposition home or self-care (01) ==
LOC: LAB 07:52
PROVIDERS: ATTEND Internal Medicine
DX: E78.5 Hyperlipidemia, unspecified (principal); D72.819 Decreased white blood cell count, unspecified
CPT/HCPCS: 36415; 80061; 85007; 85027

== ENCOUNTER 2022-09-25 13:17 | Emergency (ER) | payer MEDICARE, OTHER | END 2022-09-25 14:24 | disposition left against medical advice (07) | LOC: ER 13:17 | DX: R10.9 Unspecified abdominal pain (principal); Z53.21 Procedure and treatment not carried out due to patient leaving prior to being seen by health care provider ==

== ENCOUNTER 2022-10-11 08:21 | Emergency (ER) | payer MEDICARE, OTHER ==
[~2022-10-11] VITALS: Ht 167.6 cm; Wt 70.0 kg
[2022-10-11 08:27] VITALS: BP 142/90
[2022-10-11] MEDS ORDERED: HYDROcodone-ACET 5/325MG TAB PO ONE (09:15)
[2022-10-11] MEDS ORDERED: MECLIZINE HCL 25 MG TAB PO ONE (09:30)
[2022-10-11] MEDS ORDERED: IBUP600T27 PO (09:42)
[2022-10-11] MEDS ORDERED: MECL12.514 PO (09:53)
[2022-10-12] MEDS ORDERED: DICY10CA PO (03:16)
[2022-10-12] MEDS ORDERED: ATEN50TA PO (03:16)
[2022-10-12] MEDS ORDERED: SUCR1TAB22 OR (03:16)
[2022-10-12] MEDS ORDERED: PANT40T PO (03:16)
[2022-10-12] MEDS ORDERED: SPIR25TA PO (03:16)
[2022-10-12] MEDS ORDERED: ASPI81CH59 PO (03:16)
[2022-10-12] MEDS ORDERED: CHOL20007 OR (11:56)
[2022-10-12] MEDS ORDERED: CYCL0.05 EACHEYE (11:56)
== END 2022-10-11 10:10 | disposition home or self-care (01) ==
LOC: EDUNIT# 08:21 → EDBD 08:21 → ER 08:21
DX: S00.03XA Contusion of scalp, initial encounter (principal); S10.93XA Contusion of unspecified part of neck, initial encounter; I11.0 Hypertensive heart disease with heart failure; I50.9 Heart failure, unspecified; I25.2 Old myocardial infarction; I48.91 Unspecified atrial fibrillation; E78.5 Hyperlipidemia, unspecified; E03.9 Hypothyroidism, unspecified; E11.9 Type 2 diabetes mellitus without complications; F17.210 Nicotine dependence, cigarettes, uncomplicated; Z90.710 Acquired absence of both cervix and uterus; Z90.89 Acquired absence of other organs; Z79.82 Long term (current) use of aspirin; Z79.899 Other long term (current) drug therapy; Z79.1 Long term (current) use of non-steroidal anti-inflammatories (NSAID); Z88.8 Allergy status to other drugs, medicaments and biological substances; W01.0XXA Fall on same level from slipping, tripping and stumbling without subsequent striking against object, initial encounter; Y93.89 Activity, other specified; Y92.89 Other specified places as the place of occurrence of the external cause; Y99.8 Other external cause status
CPT/HCPCS: 70450; 72125; 99284; J8597

== ENCOUNTER 2022-10-11 15:33 | Inpatient (IN) | payer MEDICARE, OTHER ==
[~2022-10-11] VITALS: Ht 165.1 cm; Wt 76.9 kg
[~2022-10-11 15:33] MED LIST changes: +IBUP600T27 PO; +MECL12.514 PO
[2022-10-11] MEDS ORDERED: SODIUM CHLORIDE 0.9% 1,000 ML IV ONE (15:45)
[2022-10-11 16:16] LABS: Hematocrit 40.1 % (36.0-46.0); Hemoglobin 13.3 g/dL (12.2-16.2); Mean Corpuscular Hgb Conc. 33.1 g/dL (32.0-36.0); Mean Corpuscular Volume 90.4 fL (80.0-100.0); Red Blood Cells 4.43 10^6/uL (4.0-5.20); Red Cell Distribution Width 13.7 % (11.8-14.3); White Blood Cell 3.7 10^3/uL (4.4-10.8)
[2022-10-11 16:26] LABS: Albumin 3.6 g/dL (3.4-5.0); BUN/Creatinine Ratio 13.4; Band Neutrophils % (manual) 0; Basophils % (manual) 0 (0.0-2.0); Blast Cells 0; Calcium 9.1 mg/dL (8.5-10.1); Eosinophils % (manual) 0 (0-7); Metamyelocytes % 0; Myelocytes % 0; Potassium 3.7 mmol/L (3.5-5.1); Promyelocytes % 0
[2022-10-11 16:28] LABS: Bilirubin, Total 0.5 mg/dL (0.2-1.0); Total Protein 6.9 g/dL (6.4-8.2)
[2022-10-11 17:21] LABS: Lymphocytes % (manual) 52 (10.0-50.0); Monocytes % (manual) 7 (0-12)
[2022-10-11 17:22] LABS: Reactive Lymphocytes 3
[2022-10-11] MEDS ORDERED: ACETAMINOPHEN 325 MG TAB PO PRN (20:30)
[2022-10-11] MEDS ORDERED: NITROGLYCERIN 0.4 MG SL TAB SL PRN (20:30)
[2022-10-11] MEDS ORDERED: MORPHINE SULFATE INJ 2 MG/ml SYRG IV PRN ×2 (20:30)
[2022-10-11] MEDS ORDERED: DEXTROSE (50%) 50ML SYRG IV PRN (20:45)
[2022-10-11] MEDS ORDERED: hydrALAZINE HCL 20 MG/ML VL IV PRN (20:45)
[2022-10-11 21:10] LABS: Cholesterol 189 mg/dL (< 200); Triglycerides 102 mg/dL (< 150)
[2022-10-11 21:13] LABS: HDL Cholesterol 74 mg/dL (40-59); LDL Cholesterol 112 mg/dL (< 100)
[2022-10-11 23:10] LABS: Urine Bacteria FEW /hpf (None Seen); Urine Blood Negative /uL (Negative); Urine Mucus FEW (None Seen); Urine Specific Gravity 1.024 (1.001-1.035); Urine WBC 1 /hpf (0 - 5)
[2022-10-12] MEDS: HYDROcodone-ACET 5/325MG TAB PO PRN ×3 (00:54→15:49)
[2022-10-12] MEDS: ACCU-CHEK COMFORT CURVE STRIP VI SCH ×5 (01:46→22:00)
[2022-10-12] MEDS: InsuLIN REG 1unit/0.01ml Soln (100units/ml) SC SCH ×5 (01:46→22:00)
[2022-10-12 02:57] VITALS: BP 145/89
[2022-10-12] MEDS ORDERED: ATEN50TA PO (03:16)
[2022-10-12] MEDS ORDERED: PANT40T PO (03:16)
[2022-10-12] MEDS ORDERED: DICY10CA PO (03:16)
[2022-10-12] MEDS ORDERED: ASPI81CH59 PO (03:16)
[2022-10-12] MEDS ORDERED: SPIR25TA PO (03:16)
[2022-10-12] MEDS ORDERED: SUCR1TAB22 OR (03:16)
[2022-10-12 06:26] LABS: Basophils # (auto) 0 10 ^3/uL (0-0.2); Basophils % (auto) 0.9 % (0.0-2.0); Eosinophils # (auto) 0.1 10 ^3/uL (0-0.8); Eosinophils % (auto) 2.2 % (0.0-7.0); Hematocrit 38.1 % (36.0-46.0); Hemoglobin 12.5 g/dL (12.2-16.2); Lymphocytes # (auto) 1.9 10 ^3/uL (0.4-5.4); Lymphocytes % (auto) 49.1 % (10.0-50.0); Mean Corpuscular Hemoglobin 29.8 pg (28.0-32.0); Mean Corpuscular Hgb Conc. 32.8 g/dL (32.0-36.0); Monocytes # (auto) 0.3 10 ^3/uL (0-1.3); Monocytes % (auto) 7.5 % (0.0-12.0); Neutrophils # (auto) 1.6 10 ^3/uL (1.6-8.6); Neutrophils % (auto) 40.3 % (37.0-80.0); Nucleated Red Blood Cells % 0.1 %; Red Blood Cells 4.18 10^6/uL (4.0-5.20); Red Cell Distribution Width 13.9 % (11.8-14.3)
[2022-10-12 06:29] LABS: Calcium 9.1 mg/dL (8.5-10.1); Potassium 3.8 mmol/L (3.5-5.1)
[2022-10-12 06:31] LABS: BUN/Creatinine Ratio 16.3
[2022-10-12 08:50] VITALS: BP 133/89
[2022-10-12] MEDS: NICOTINE 7MG/24HR TOPICAL PATCH TD SCH (09:49)
[2022-10-12] MEDS ORDERED: CYCL0.05 EACHEYE (11:56)
[2022-10-12] MEDS ORDERED: CHOL20007 OR (11:56)
[2022-10-12 12:50] VITALS: BP 116/85
[2022-10-12] MEDS: MECLIZINE HCL 25 MG TAB PO PRN (13:41)
[2022-10-12] MEDS ORDERED: ATENOLOL 50 MG TAB PO ONE (15:45)
[2022-10-12 17:00] VITALS: BP 120/70
[2022-10-12] MEDS: SUCRALFATE 1 GM TAB PO SCH ×2 (17:33→22:20)
[2022-10-12 20:00] VITALS: BP 136/80
[2022-10-12 22:00] VITALS: BP 136/80
[2022-10-12] MEDS: RESTASIS 0.05% EACHEYE SCH (22:20)
[2022-10-13 05:12] VITALS: BP 102/64
[2022-10-13] MEDS: InsuLIN REG 1unit/0.01ml Soln (100units/ml) SC SCH ×4 (06:49→21:28)
[2022-10-13] MEDS: ACCU-CHEK COMFORT CURVE STRIP VI SCH ×4 (06:49→21:28)
[2022-10-13] MEDS: LEVOTHYROXINE SODIUM 100 MCG TAB PO SCH (06:50)
[2022-10-13] MEDS: SUCRALFATE 1 GM TAB PO SCH ×4 (06:50→21:32)
[2022-10-13 08:00] VITALS: BP 95/61
[2022-10-13] MEDS: MECLIZINE HCL 25 MG TAB PO PRN ×2 (08:17→19:46)
[2022-10-13] MEDS: PANTOPRAZOLE 40 MG TAB PO SCH (08:17)
[2022-10-13] MEDS: ASPirin 81 mg TAB PO SCH (08:17)
[2022-10-13] MEDS: RESTASIS 0.05% EACHEYE SCH ×2 (08:18→21:32)
[2022-10-13] MEDS: SPIRONOLACTONE 25 MG TAB PO SCH (10:00)
[2022-10-13] MEDS: ATENOLOL 50 MG TAB PO SCH (10:00)
[2022-10-13] MEDS: NICOTINE 7MG/24HR TOPICAL PATCH TD SCH (10:00)
[2022-10-13 12:00] VITALS: BP 102/64
[2022-10-13] MEDS: HYDROcodone-ACET 5/325MG TAB PO PRN ×2 (13:09→19:46)
[2022-10-13 16:00] VITALS: BP 99/68
[2022-10-13 20:00] VITALS: BP 122/72
[2022-10-13 22:00] VITALS: BP 122/72
[2022-10-14] VITALS (7 sets, daily range): BP systolic 104–135; BP diastolic 65–95
[2022-10-14] MEDS ORDERED: LACTULOSE 20Gm/30ML SOLN PO ONE (00:30)
[2022-10-14] MEDS: HYDROcodone-ACET 5/325MG TAB PO PRN ×2 (03:00→10:11)
[2022-10-14] MEDS: InsuLIN REG 1unit/0.01ml Soln (100units/ml) SC SCH ×4 (06:17→22:00)
[2022-10-14] MEDS: ACCU-CHEK COMFORT CURVE STRIP VI SCH ×4 (06:17→22:00)
[2022-10-14] MEDS: LEVOTHYROXINE SODIUM 100 MCG TAB PO SCH (06:27)
[2022-10-14] MEDS: SUCRALFATE 1 GM TAB PO SCH ×4 (06:27→22:16)
[2022-10-14] MEDS: RESTASIS 0.05% EACHEYE SCH ×2 (10:00→22:00)
[2022-10-14] MEDS: NICOTINE 7MG/24HR TOPICAL PATCH TD SCH (10:00)
[2022-10-14] MEDS: ASPirin 81 mg TAB PO SCH (10:06)
[2022-10-14] MEDS: SPIRONOLACTONE 25 MG TAB PO SCH (10:06)
[2022-10-14] MEDS: PANTOPRAZOLE 40 MG TAB PO SCH (10:07)
[2022-10-14] MEDS: ATENOLOL 50 MG TAB PO SCH (10:09)
[2022-10-14] MEDS: MECLIZINE HCL 25 MG TAB PO PRN (10:16)
[2022-10-14] MEDS: POLYETHYLENE GLYCOL 17 GM PWDR PO SCH (22:16)
[2022-10-15] MEDS: MECLIZINE HCL 25 MG TAB PO PRN ×3 (00:17→20:39)
[2022-10-15] MEDS: HYDROcodone-ACET 5/325MG TAB PO PRN ×2 (00:18→20:41)
[2022-10-15 05:00] VITALS: BP 116/73
[2022-10-15] MEDS: LEVOTHYROXINE SODIUM 100 MCG TAB PO SCH (06:27)
[2022-10-15] MEDS: SUCRALFATE 1 GM TAB PO SCH ×4 (06:27→21:52)
[2022-10-15] MEDS: InsuLIN REG 1unit/0.01ml Soln (100units/ml) SC SCH ×4 (06:28→21:52)
[2022-10-15] MEDS: ACCU-CHEK COMFORT CURVE STRIP VI SCH ×4 (06:28→21:52)
[2022-10-15 08:44] VITALS: BP 120/72
[2022-10-15] MEDS: ATENOLOL 50 MG TAB PO SCH (08:50)
[2022-10-15] MEDS: NICOTINE 7MG/24HR TOPICAL PATCH TD SCH (08:51)
[2022-10-15] MEDS: RESTASIS 0.05% EACHEYE SCH ×2 (08:53→21:52)
[2022-10-15] MEDS: SPIRONOLACTONE 25 MG TAB PO SCH (08:54)
[2022-10-15] MEDS: PANTOPRAZOLE 40 MG TAB PO SCH (08:54)
[2022-10-15] MEDS: ASPirin 81 mg TAB PO SCH (08:54)
[2022-10-15 13:00] VITALS: BP 121/72
[2022-10-15 17:00] VITALS: BP 118/75
[2022-10-15] MEDS: POLYETHYLENE GLYCOL 17 GM PWDR PO SCH (21:52)
[2022-10-16] VITALS (8 sets, daily range): BP systolic 112–130; BP diastolic 68–90
[2022-10-16] MEDS: LEVOTHYROXINE SODIUM 100 MCG TAB PO SCH (05:51)
[2022-10-16] MEDS: SUCRALFATE 1 GM TAB PO SCH ×4 (05:51→23:51)
[2022-10-16] MEDS: InsuLIN REG 1unit/0.01ml Soln (100units/ml) SC SCH ×4 (05:55→22:00)
[2022-10-16] MEDS: ACCU-CHEK COMFORT CURVE STRIP VI SCH ×4 (05:55→22:00)
[2022-10-16] MEDS ORDERED: ADENOSINE 67 MG in GIVE UN-DILUTED 0 ML IV STA (08:32)
[2022-10-16] MEDS: NICOTINE 7MG/24HR TOPICAL PATCH TD SCH (10:00)
[2022-10-16] MEDS: RESTASIS 0.05% EACHEYE SCH ×2 (10:00→22:00)
[2022-10-16] MEDS: ASPirin 81 mg TAB PO SCH (10:34)
[2022-10-16] MEDS: SPIRONOLACTONE 25 MG TAB PO SCH (10:35)
[2022-10-16] MEDS: PANTOPRAZOLE 40 MG TAB PO SCH (10:35)
[2022-10-16] MEDS: ATENOLOL 50 MG TAB PO SCH (10:37)
[2022-10-16] MEDS: HYDROcodone-ACET 5/325MG TAB PO PRN ×2 (15:05→23:52)
[2022-10-16] MEDS: ONDANSETRON HCL 4 MG/2 ML VIAL IV PRN (15:05)
[2022-10-16] MEDS ORDERED: ATORVASTATIN 20 MG TAB PO SCH (22:00)
[2022-10-16] MEDS: POLYETHYLENE GLYCOL 17 GM PWDR PO SCH (23:50)
[2022-10-17 05:00] VITALS: BP 115/84
[2022-10-17] MEDS: SUCRALFATE 1 GM TAB PO SCH ×2 (05:50→11:30)
[2022-10-17] MEDS: LEVOTHYROXINE SODIUM 100 MCG TAB PO SCH (05:51)
[2022-10-17] MEDS: ACCU-CHEK COMFORT CURVE STRIP VI SCH ×2 (07:00→11:30)
[2022-10-17] MEDS: InsuLIN REG 1unit/0.01ml Soln (100units/ml) SC SCH ×2 (07:00→11:30)
[2022-10-17 08:00] VITALS: BP 103/52
[2022-10-17] MEDS: NICOTINE 7MG/24HR TOPICAL PATCH TD SCH (08:44)
[2022-10-17] MEDS: ASPirin 81 mg TAB PO SCH (10:00)
[2022-10-17] MEDS: RESTASIS 0.05% EACHEYE SCH (10:00)
[2022-10-17] MEDS: PANTOPRAZOLE 40 MG TAB PO SCH (10:00)
[2022-10-17] MEDS: SPIRONOLACTONE 25 MG TAB PO SCH (10:00)
[2022-10-17] MEDS: ATENOLOL 50 MG TAB PO SCH (10:00)
[2022-10-17] MEDS: ONDANSETRON HCL 4 MG/2 ML VIAL IV PRN (12:17)
[2022-10-17] MEDS ORDERED: MECL25TA18 PO (12:52)
[2022-10-17 13:00] VITALS: BP 119/75
[2022-10-17 13:13] VITALS: BP 119/75
== END 2022-10-17 14:30 | disposition home or self-care (01) | DRG 89 ==
LOC: EDBD 15:33 → EDUNIT# 15:33 → ER 15:33 → OVERFLOW 20:32 → WEST WING 23:30 → TELE-WESTW 10-14 17:43
PROVIDERS: ADMIT Registered Nurse; ATTEND Internal Medicine
DX: S06.0X0A Concussion without loss of consciousness, initial encounter (principal); I50.32 Chronic diastolic (congestive) heart failure; E78.5 Hyperlipidemia, unspecified; E11.9 Type 2 diabetes mellitus without complications; F17.210 Nicotine dependence, cigarettes, uncomplicated; J44.9 Chronic obstructive pulmonary disease, unspecified; I48.91 Unspecified atrial fibrillation; W00.0XXA Fall on same level due to ice and snow, initial encounter; E78.00 Pure hypercholesterolemia, unspecified; H53.8 Other visual disturbances; I11.0 Hypertensive heart disease with heart failure; Z20.822 Contact with and (suspected) exposure to COVID-19; I25.10 Atherosclerotic heart disease of native coronary artery without angina pectoris; I25.2 Old myocardial infarction; Z80.0 Family history of malignant neoplasm of digestive organs; Z82.3 Family history of stroke; Z82.49 Family history of ischemic heart disease and other diseases of the circulatory system; Z83.3 Family history of diabetes mellitus; Z87.11 Personal history of peptic ulcer disease; Z90.710 Acquired absence of both cervix and uterus; Z90.49 Acquired absence of other specified parts of digestive tract; Z71.6 Tobacco abuse counseling; Z80.52 Family history of malignant neoplasm of bladder; Z85.038 Personal history of other malignant neoplasm of large intestine; Z95.5 Presence of coronary angioplasty implant and graft; Y93.89 Activity, other specified; Y92.481 Parking lot as the place of occurrence of the external cause; Y99.8 Other external cause status; Z88.5 Allergy status to narcotic agent; Z79.84 Long term (current) use of oral hypoglycemic drugs
CPT/HCPCS: 36415; 70450; 70551; 72125; 72131; 78452; 80048; 80053; 80061; 81001; 82962; 83036; 84443; 84484; 85007; 85025; 85027; 87426; 93005; 93017; 93306; 93886; 95819; 96360; 97116; 97530; G0378; J0153; J2405

== ENCOUNTER → 2023-01-15 | Outpatient (CLI) | payer MEDICARE, OTHER ==
[~2023-01-15] MED LIST changes: -ASPI325T4 PO; +ASPI81CH59 PO; +ATEN50TA PO; +CHOL20007 OR; +DICY10CA PO; -MECL12.514 PO; +MECL25TA18 PO; +PANT40T PO; +SPIR25TA PO; +SUCR1TAB22 OR
[2023-01-15 11:04] LABS: Hematocrit 40.2 % (36.0-46.0); Hemoglobin 13.3 g/dL (12.2-16.2); Mean Corpuscular Hemoglobin 29.4 pg (28.0-32.0); Red Blood Cells 4.51 10^6/uL (4.0-5.20)
[2023-01-15 11:36] LABS: Band Neutrophils % (manual) 0; Basophils % (manual) 0 (0.0-2.0); Blast Cells 0; Metamyelocytes % 0; Myelocytes % 0; Promyelocytes % 0
[2023-01-15 12:13] LABS: Potassium 3.4 mmol/L (3.5-5.1)
[2023-01-15 12:25] LABS: Albumin 3.5 g/dL (3.4-5.0); BUN/Creatinine Ratio 22.6 (10.0-20.0); Bilirubin, Total 0.6 mg/dL (0.2-1.0); Calcium 8.8 mg/dL (8.5-10.1); Total Protein 7.2 g/dL (6.4-8.2)
[2023-01-15 13:12] LABS: Eosinophils % (manual) 2 (0-7); Lymphocytes % (manual) 57 (10.0-50.0); Monocytes % (manual) 4 (0-12); Reactive Lymphocytes 2
== END | disposition home or self-care (01) ==
LOC: LAB 09:05
PROVIDERS: ATTEND Internal Medicine
DX: J44.9 Chronic obstructive pulmonary disease, unspecified (principal); E11.9 Type 2 diabetes mellitus without complications; E03.9 Hypothyroidism, unspecified
CPT/HCPCS: 36415; 80053; 83036; 84443; 85007; 85027

== ENCOUNTER 2023-02-08 19:39 | Emergency (ER) | payer MEDICARE, OTHER ==
[~2023-02-08] VITALS: Ht 165.1 cm; Wt 72.1 kg
[2023-02-08 21:36] VITALS: BP 104/72
== END 2023-02-08 23:21 | disposition home or self-care (01) ==
LOC: ER 19:39
DX: H92.02 Otalgia, left ear (principal); R51.9 Headache, unspecified; M19.90 Unspecified osteoarthritis, unspecified site; I11.0 Hypertensive heart disease with heart failure; I50.9 Heart failure, unspecified; E11.9 Type 2 diabetes mellitus without complications; E78.5 Hyperlipidemia, unspecified; I25.2 Old myocardial infarction; Z87.11 Personal history of peptic ulcer disease; Z98.890 Other specified postprocedural states; Z90.710 Acquired absence of both cervix and uterus; Z98.61 Coronary angioplasty status; Z88.5 Allergy status to narcotic agent
CPT/HCPCS: 70450; 70486

== ENCOUNTER → 2023-03-01 | Outpatient (CLI) | payer MEDICARE, OTHER | END | disposition home or self-care (01) | LOC: LAB 08:12 | PROVIDERS: ATTEND Internal Medicine | DX: E03.9 Hypothyroidism, unspecified (principal) | CPT/HCPCS: 36415; 84443 ==

== ENCOUNTER → 2023-03-16 | Outpatient (CLI) | payer MEDICARE, OTHER | END | disposition home or self-care (01) | LOC: LAB 07:55 | PROVIDERS: ATTEND Internal Medicine | DX: E03.9 Hypothyroidism, unspecified (principal) | CPT/HCPCS: 36415; 84443 ==

== ENCOUNTER 2023-04-03 21:54 | Inpatient (IN) | payer MEDICARE, OTHER ==
[~2023-04-03] VITALS: Ht 165.1 cm; Wt 73.7 kg
[~2023-04-03 21:54] MED LIST changes: -ALEN70TA2 PO; +ALEN70TA21 PO; -AMLO10CA33 PO; +AMLO1CAP56 PO; +GABA-1250 PO; -GABA300C10 PO; +IBUP-1454 PO; -IBUP600T27 PO; +MECL1TAB32 PO; -MECL25TA18 PO
[2023-04-03 23:02] LABS: Basophils # (auto) 0 10 ^3/uL (0-0.2); Basophils % (auto) 0.8 % (0.0-2.0); Eosinophils # (auto) 0.1 10 ^3/uL (0-0.8); Eosinophils % (auto) 1.8 % (0.0-7.0); Hematocrit 42.2 % (36.0-46.0); Hemoglobin 13.9 g/dL (12.2-16.2); Lymphocytes # (auto) 3.1 10 ^3/uL (0.4-5.4); Lymphocytes % (auto) 51.9 % (10.0-50.0); Mean Corpuscular Hemoglobin 29.2 pg (28.0-32.0); Mean Corpuscular Hgb Conc. 32.9 g/dL (32.0-36.0); Mean Corpuscular Volume 88.8 fL (80.0-100.0); Monocytes # (auto) 0.4 10 ^3/uL (0-1.3); Monocytes % (auto) 6.1 % (0.0-12.0); Neutrophils # (auto) 2.4 10 ^3/uL (1.6-8.6); Neutrophils % (auto) 39.4 % (37.0-80.0); Nucleated Red Blood Cells % 0.1 %; Red Blood Cells 4.75 10^6/uL (4.0-5.20); Red Cell Distribution Width 14.1 % (11.8-14.3)
[2023-04-03 23:10] LABS: INR 0.88 (0.9-1.15); Partial Thromboplastin Time 22.4 sec (24.6-33.4)
[2023-04-03 23:16] LABS: Urine WBC None Seen /hpf (0 - 5)
[2023-04-03 23:17] LABS: Albumin 3.6 g/dL (3.4-5.0); BUN/Creatinine Ratio 17.1 (10.0-20.0); Calcium 9.7 mg/dL (8.5-10.1); Magnesium 2.2 mg/dL (1.6-2.6); Potassium 3.7 mmol/L (3.5-5.1)
[2023-04-03 23:19] LABS: Bilirubin, Total 0.3 mg/dL (0.2-1.0); Total Protein 7.8 g/dL (6.4-8.2)
[2023-04-03 23:35] LABS: Urine Bacteria NONE SEEN /hpf (None Seen); Urine Blood Negative /uL (Negative); Urine Specific Gravity 1.009 (1.001-1.035)
[2023-04-04] MEDS ORDERED: OXYCODONE W/ ACETAMINOPHEN 5/325MG TABLET PO ONE (00:45)
[2023-04-04] MEDS ORDERED: ONDANSETRON HCL 4 MG/2 ML VIAL IV PRN (03:45)
[2023-04-04] MEDS ORDERED: ACETAMINOPHEN 325 MG TAB PO PRN (03:45)
[2023-04-04] MEDS ORDERED: DEXTROSE (50%) 50ML SYRG IV PRN (03:45)
[2023-04-04] MEDS: LEVOTHYROXINE SODIUM 100 MCG TAB PO SCH (06:56)
[2023-04-04] MEDS: HYDROcodone-ACET 5/325MG TAB PO PRN ×2 (06:56→17:45)
[2023-04-04] MEDS: InsuLIN REG 1unit/0.01ml Soln (100units/ml) SC SCH ×4 (07:00→22:31)
[2023-04-04] MEDS: ACCU-CHEK COMFORT CURVE STRIP VI SCH ×4 (07:05→22:22)
[2023-04-04] MEDS ORDERED: SPIRONOLACTONE 25 MG TAB PO SCH (10:00)
[2023-04-04] MEDS ORDERED: amLODIPine BESYLATE 5 MG TAB PO SCH (10:00)
[2023-04-04] MEDS: ASPirin 81 mg TAB PO SCH (10:37)
[2023-04-04] MEDS: ENOXAPARIN SOD 40 MG/0.4 ML SYRINGE SC SCH (10:38)
[2023-04-04] MEDS: PANTOPRAZOLE 40 MG TAB PO SCH (10:38)
[2023-04-04] MEDS ORDERED: diphenhdrAMINE HCL 25 MG CAP PO ONE (19:00)
[2023-04-04] MEDS ORDERED: ATORVASTATIN 20 MG TAB PO SCH (22:00)
[2023-04-05 00:31] VITALS: BP 98/66
[2023-04-05 05:00] VITALS: BP 104/68
[2023-04-05] MEDS: HYDROcodone-ACET 5/325MG TAB PO PRN ×2 (05:10→09:41)
[2023-04-05] MEDS: LEVOTHYROXINE SODIUM 100 MCG TAB PO SCH (05:49)
[2023-04-05] MEDS: ACCU-CHEK COMFORT CURVE STRIP VI SCH ×2 (05:52→11:31)
[2023-04-05] MEDS: InsuLIN REG 1unit/0.01ml Soln (100units/ml) SC SCH ×2 (06:14→11:30)
[2023-04-05 06:36] LABS: Hemoglobin 13.1 g/dL (12.2-16.2); Mean Corpuscular Hemoglobin 29.3 pg (28.0-32.0); Mean Corpuscular Hgb Conc. 33.5 g/dL (32.0-36.0); Mean Corpuscular Volume 87.6 fL (80.0-100.0); Red Blood Cells 4.45 10^6/uL (4.0-5.20); Red Cell Distribution Width 14.2 % (11.8-14.3); White Blood Cell 2.9 10^3/uL (4.4-10.8)
[2023-04-05 06:39] LABS: BUN/Creatinine Ratio 25.3 (10.0-20.0); Calcium 8.9 mg/dL (8.5-10.1); Potassium 3.7 mmol/L (3.5-5.1)
[2023-04-05 07:28] LABS: Basophils % (manual) 0 (0.0-2.0); Blast Cells 0; Metamyelocytes % 0; Myelocytes % 0; Promyelocytes % 0; Reactive Lymphocytes 0
[2023-04-05 08:00] VITALS: BP 95/54
[2023-04-05] MEDS ORDERED: POTA-220 PO (08:39)
[2023-04-05] MEDS ORDERED: FEXO-226 PO (08:39)
[2023-04-05 09:00] VITALS: BP 99/62
[2023-04-05 09:10] LABS: Band Neutrophils % (manual) 2; Eosinophils % (manual) 2 (0-7); Lymphocytes % (manual) 67 (10.0-50.0); Monocytes % (manual) 5 (0-12)
[2023-04-05] MEDS: ASPirin 81 mg TAB PO SCH (09:41)
[2023-04-05] MEDS: PANTOPRAZOLE 40 MG TAB PO SCH (09:41)
[2023-04-05] MEDS: ENOXAPARIN SOD 40 MG/0.4 ML SYRINGE SC SCH (09:43)
[2023-04-05 12:24] VITALS: BP 95/54
[2023-04-05 13:00] VITALS: BP 101/66
== END 2023-04-05 13:00 | disposition home or self-care (01) | DRG 103 ==
LOC: EDBD 21:54 → ER 21:58 → OVERFLOW 04-04 03:43 → CENTRAL 04-04 23:44
PROVIDERS: ADMIT Nurse Practitioner; ATTEND Nurse Practitioner Acute Care
DX: G44.309 Post-traumatic headache, unspecified, not intractable (principal); G45.9 Transient cerebral ischemic attack, unspecified; F07.81 Postconcussional syndrome; I11.0 Hypertensive heart disease with heart failure; E11.9 Type 2 diabetes mellitus without complications; G89.29 Other chronic pain; F17.200 Nicotine dependence, unspecified, uncomplicated; E78.5 Hyperlipidemia, unspecified; H53.9 Unspecified visual disturbance; I25.10 Atherosclerotic heart disease of native coronary artery without angina pectoris; I25.2 Old myocardial infarction; I48.91 Unspecified atrial fibrillation; I50.9 Heart failure, unspecified; J44.9 Chronic obstructive pulmonary disease, unspecified; Z80.52 Family history of malignant neoplasm of bladder; Z80.0 Family history of malignant neoplasm of digestive organs; Z82.49 Family history of ischemic heart disease and other diseases of the circulatory system; Z83.3 Family history of diabetes mellitus; Z87.11 Personal history of peptic ulcer disease; Z90.710 Acquired absence of both cervix and uterus; Z88.5 Allergy status to narcotic agent
CPT/HCPCS: 36415; 70450; 70551; 71045; 71250; 72131; 74176; 80048; 80053; 81001; 82962; 83735; 83880; 84443; 84484; 85007; 85025; 85027; 85610; 85652; 85730; 93005; 96374; 99291; G0378; J1815; J2405

== ENCOUNTER → 2023-04-11 | Outpatient (CLI) | payer MEDICARE, OTHER ==
[~2023-04-11] MED LIST changes: -CHOL20007 OR; +FEXO-226 PO; -POTA-180 PO; +POTA-220 PO
== END | disposition home or self-care (01) ==
LOC: LAB 08:47
PROVIDERS: ATTEND Internal Medicine
DX: E11.9 Type 2 diabetes mellitus without complications (principal); E03.9 Hypothyroidism, unspecified
CPT/HCPCS: 36415; 83036; 84443

== ENCOUNTER 2023-04-19 01:24 | Emergency (ER) | payer MEDICARE, OTHER ==
[~2023-04-19] VITALS: Ht 165.1 cm; Wt 71.4 kg
[2023-04-19 03:49] LABS: Hemoglobin 12.8 g/dL (12.2-16.2); Nucleated Red Blood Cells % 0.1 %
[2023-04-19 03:53] LABS: Basophils # (auto) 0 10 ^3/uL (0-0.2); Basophils % (auto) 0.7 % (0.0-2.0); Eosinophils # (auto) 0.1 10 ^3/uL (0-0.8); Eosinophils % (auto) 2.3 % (0.0-7.0); Hematocrit 38.5 % (36.0-46.0); Lymphocytes % (auto) 39.2 % (10.0-50.0); Mean Corpuscular Hemoglobin 29.4 pg (28.0-32.0); Mean Corpuscular Hgb Conc. 33.2 g/dL (32.0-36.0); Mean Corpuscular Volume 88.7 fL (80.0-100.0); Monocytes # (auto) 0.4 10 ^3/uL (0-1.3); Monocytes % (auto) 7.1 % (0.0-12.0); Neutrophils # (auto) 2.6 10 ^3/uL (1.6-8.6); Neutrophils % (auto) 50.7 % (37.0-80.0); Red Blood Cells 4.35 10^6/uL (4.0-5.20); Red Cell Distribution Width 14.8 % (11.8-14.3); White Blood Cell 5.1 10^3/uL (4.4-10.8)
[2023-04-19 03:54] LABS: Urine Bacteria NONE SEEN /hpf (None Seen); Urine Blood Negative /uL (Negative); Urine Specific Gravity 1.012 (1.001-1.035); Urine WBC <1 /hpf (0 - 5)
[2023-04-19 04:00] LABS: Albumin 3.2 g/dL (3.4-5.0); Calcium 9.2 mg/dL (8.5-10.1); Potassium 3.3 mmol/L (3.5-5.1)
[2023-04-19 04:03] LABS: BUN/Creatinine Ratio 13.6 (10.0-20.0); Bilirubin, Total 0.5 mg/dL (0.2-1.0); Total Protein 6.8 g/dL (6.4-8.2)
[2023-04-19] MEDS ORDERED: PERCOT PO (06:53)
[2023-04-19] MEDS ORDERED: CIPR-173 PO (06:53)
[2023-04-19] MEDS ORDERED: ZOFR4T PO (06:53)
[2023-04-19 08:12] VITALS: BP 141/82
== END 2023-04-19 07:56 | disposition home or self-care (01) ==
LOC: EDBD 01:24 → ER 01:28
DX: K29.70 Gastritis, unspecified, without bleeding (principal); I11.0 Hypertensive heart disease with heart failure; I50.9 Heart failure, unspecified; E11.9 Type 2 diabetes mellitus without complications; E78.5 Hyperlipidemia, unspecified; Z90.710 Acquired absence of both cervix and uterus; Z88.6 Allergy status to analgesic agent; Z88.8 Allergy status to other drugs, medicaments and biological substances
CPT/HCPCS: 36415; 71045; 74176; 80053; 81001; 83690; 83880; 85025; 93005

== ENCOUNTER → 2023-06-12 | Outpatient (CLI) | payer MEDICARE, OTHER ==
[~2023-06-12] MED LIST changes: +CIPR-173 PO; +PERCOT PO; +ZOFR4T PO
== END | disposition home or self-care (01) ==
LOC: LAB 15:48
PROVIDERS: ATTEND Internal Medicine
DX: E11.9 Type 2 diabetes mellitus without complications (principal); E03.9 Hypothyroidism, unspecified
CPT/HCPCS: 82270

== ENCOUNTER → 2023-08-06 | Outpatient (CLI) | payer MEDICARE, OTHER | END | disposition home or self-care (01) | LOC: XYW 12:49 | PROVIDERS: ATTEND Student in an Organized Health Care Education/Training Program | DX: I51.89 Other ill-defined heart diseases (principal); I25.9 Chronic ischemic heart disease, unspecified | CPT/HCPCS: 93306 ==

== ENCOUNTER → 2023-08-09 | Outpatient (CLI) | payer MEDICARE, OTHER ==
[2023-08-09 14:23] LABS: Albumin 4.3 g/dL (3.2-4.8); Bilirubin, Direct 0.2 mg/dL (<0.3); Bilirubin, Total 0.8 mg/dL (0.2-1.0); Total Protein 7.1 g/dL (5.7-8.2)
== END | disposition home or self-care (01) ==
LOC: LAB 13:46
PROVIDERS: ATTEND Internal Medicine
DX: E11.9 Type 2 diabetes mellitus without complications (principal); E78.5 Hyperlipidemia, unspecified
CPT/HCPCS: 36415; 80061; 80076; 83036; 84443

== ENCOUNTER → 2023-08-15 | Outpatient (CLI) | payer MEDICARE, OTHER | END | disposition home or self-care (01) | LOC: LAB 10:27 | PROVIDERS: ATTEND Internal Medicine Gastroenterology | DX: R19.5 Other fecal abnormalities (principal); K29.00 Acute gastritis without bleeding; R97.8 Other abnormal tumor markers; Z80.0 Family history of malignant neoplasm of digestive organs | CPT/HCPCS: 82378 ==

== ENCOUNTER → 2023-09-14 | Outpatient (CLI) | payer MEDICARE, OTHER ==
[~2023-09-14] MED LIST changes: +ALEN70TA74 PO; +ALPR1TAB7 PO; +ASPI-325 PO; +AUG875T PO; +CHOL20007 PO; +DEXT1SYP9 PO; +DICY10CA12 PO; +EZET-10 PO; +FERR325T24 PO; +LACT10SO59 PO; +PANT1INJ3 PO; +SUCR1TAB PO
[2023-09-14 09:55] LABS: Anion Gap 5 (5-15); Carbon Dioxide 23 mmol/L (20-30); Chloride 114 mmol/L (98-107); Sodium 142 mmol/L (136-145)
[2023-09-14 09:56] LABS: Calcium 8.6 mg/dL (8.5-10.1); Creatinine, Urine 211.06 mg/dL (30.0-125.0)
[2023-09-14 10:01] LABS: BUN/Creatinine Ratio 13.5 (10.0-20.0); Blood Urea Nitrogen 12 mg/dL (9-23); Glucose 104 mg/dL (74-106)
== END | disposition home or self-care (01) ==
LOC: LAB 08:58
PROVIDERS: ATTEND Internal Medicine
DX: E11.9 Type 2 diabetes mellitus without complications (principal); I10 Essential (primary) hypertension; E78.5 Hyperlipidemia, unspecified
CPT/HCPCS: 36415; 80048; 82043; 82570; 84443

== ENCOUNTER 2023-09-26 23:52 | Emergency (ER) | payer MEDICARE, OTHER ==
[~2023-09-26] VITALS: Ht 165.1 cm; Wt 74.1 kg
[2023-09-27 00:16] VITALS: BP 134/90; PULSE 75; RESP 17; TEMP 99.4; O2SAT 99
[2023-09-27] MEDS ORDERED: KETOROLAC TROMETH 60MG/2ML VIAL IM ONE (01:00)
[2023-09-27] MEDS ORDERED: NIRM1TAB PO (01:02)
[2023-09-27 01:05] LABS: COVID19 ANTIGEN SOFIA FIA POSITIVE (NEGATIVE)
[2023-09-27 01:06] LABS: Rapid Influenza A Negative (Negative); Rapid Influenza B Negative (Negative)
== END 2023-09-27 01:42 | disposition home or self-care (01) ==
LOC: ER 23:52
DX: U07.1 COVID-19 (principal); I11.0 Hypertensive heart disease with heart failure; I50.9 Heart failure, unspecified; I25.2 Old myocardial infarction; E78.5 Hyperlipidemia, unspecified; E11.9 Type 2 diabetes mellitus without complications; E03.9 Hypothyroidism, unspecified; Z90.710 Acquired absence of both cervix and uterus
CPT/HCPCS: 36415; 87426; 87804; 93005; 96372; 99284; J1885

== ENCOUNTER → 2023-10-15 | Outpatient (CLI) | payer MEDICARE, OTHER ==
[~2023-10-15] MED LIST changes: +NIRM1TAB PO
== END | disposition home or self-care (01) ==
LOC: LAB 11:30
PROVIDERS: ATTEND Internal Medicine
DX: E11.9 Type 2 diabetes mellitus without complications (principal); E78.5 Hyperlipidemia, unspecified
CPT/HCPCS: 36415; 84443

== ENCOUNTER → 2023-11-20 | Outpatient (CLI) | payer MEDICARE, OTHER ==
[2023-11-20 10:41] LABS: Chloride 111 mmol/L (98-107); Potassium 3.7 mmol/L (3.5-5.1); Sodium 142 mmol/L (136-145)
[2023-11-20 10:42] LABS: Anion Gap 4 (5-15); Calcium 9.8 mg/dL (8.5-10.1); Carbon Dioxide 27 mmol/L (20-30)
[2023-11-20 10:47] LABS: BUN/Creatinine Ratio 14.1 (10.0-20.0); Blood Urea Nitrogen 14 mg/dL (9-23); Glucose 104 mg/dL (74-106)
== END | disposition home or self-care (01) ==
LOC: LAB 09:29
PROVIDERS: ATTEND Internal Medicine
DX: E11.9 Type 2 diabetes mellitus without complications (principal)
CPT/HCPCS: 36415; 80048

== ENCOUNTER → 2023-11-28 | Outpatient (CLI) | payer MEDICARE, OTHER ==
[2023-11-28 14:46] LABS: Hematocrit 38.5 % (36.0-46.0); Hemoglobin 12.7 g/dL (12.2-16.2); Mean Corpuscular Hemoglobin 30.1 pg (28.0-32.0); Mean Corpuscular Hgb Conc. 33.1 g/dL (32.0-36.0); Red Blood Cells 4.23 10^6/uL (4.0-5.20); Red Cell Distribution Width 14.3 % (11.8-14.3); White Blood Cell 3.5 10^3/uL (4.4-10.8)
[2023-11-28 15:01] LABS: Band Neutrophils % (manual) 0; Basophils % (manual) 0 (0.0-2.0); Blast Cells 0; Metamyelocytes % 0; Myelocytes % 0; Promyelocytes % 0; Reactive Lymphocytes 0
[2023-11-28 15:29] LABS: Alanine Aminotransferase 10 U/L (7-40); Albumin 4.3 g/dL (3.2-4.8); Alkaline Phosphatase 52 U/L (46-116); Anion Gap 5 (5-15); Aspartate Aminotransferase 10 U/L (13-40); BUN/Creatinine Ratio 15.8 (10.0-20.0); Bilirubin, Total 0.7 mg/dL (0.2-1.0); Blood Urea Nitrogen 16 mg/dL (9-23); Carbon Dioxide 27 mmol/L (20-30); Chloride 111 mmol/L (98-107); Glucose 90 mg/dL (74-106); Potassium 3.8 mmol/L (3.5-5.1); Sodium 143 mmol/L (136-145); Total Protein 6.4 g/dL (5.7-8.2)
[2023-11-28 15:33] LABS: Follicle Stimulating Hormone 76.28 IU/L (SEE BELOW)
[2023-11-28 15:54] LABS: Eosinophils % (manual) 1 (0-7); Lymphocytes % (manual) 63 (10.0-50.0); Monocytes % (manual) 6 (0-12); Platelet Estimate Adequate
== END | disposition home or self-care (01) ==
LOC: LAB 14:20
PROVIDERS: ATTEND Obstetrics & Gynecology
DX: Z13.220 Encounter for screening for lipoid disorders (principal); E55.9 Vitamin D deficiency, unspecified; E53.9 Vitamin B deficiency, unspecified; E34.9 Endocrine disorder, unspecified; E07.89 Other specified disorders of thyroid; N95.1 Menopausal and female climacteric states
CPT/HCPCS: 36415; 80053; 82306; 82607; 82670; 83001; 84144; 84403; 85007; 85027

== ENCOUNTER 2024-01-09 00:02 | Emergency (ER) | payer MEDICARE, OTHER ==
[~2024-01-09] VITALS: Ht 165.1 cm; Wt 74.0 kg
[~2024-01-09 00:02] MED LIST changes: -ALEN70TA74 PO; -ALPR1TAB7 PO; -ASPI81CH59 PO; -ATEN50TA PO; -AUG875T PO; -CIPR-173 PO; +CYCL-611 PO; -DEXT1SYP9 PO; -DICY10CA12 PO; +DOCU-265 PO; -EZET10TA22 PO; -FERR325T24 PO; +HYDR-4798 PO; -NIRM1TAB PO; -PANT1INJ3 PO; -PERCOT PO; -SUCR1TAB22 OR
[2024-01-09 00:32] VITALS: BP 115/81; PULSE 83; RESP 20; TEMP 98.2; O2SAT 100
[2024-01-09] MEDS ORDERED: CLIN300C70 PO (01:39)
[2024-01-09] MEDS: HYDROcodone-ACET 10/325MG TAB PO ONE (01:40)
[2024-01-09] MEDS: cefTRIAXone SOD 1,000 MG VL IM ONE (01:41)
== END 2024-01-09 02:01 | disposition home or self-care (01) ==
LOC: ER 00:02
DX: T81.49XA Infection following a procedure, other surgical site, initial encounter (principal); L03.221 Cellulitis of neck; I11.0 Hypertensive heart disease with heart failure; I50.9 Heart failure, unspecified; I25.2 Old myocardial infarction; E78.5 Hyperlipidemia, unspecified; E03.9 Hypothyroidism, unspecified; Z90.710 Acquired absence of both cervix and uterus; Z79.899 Other long term (current) drug therapy; Z79.2 Long term (current) use of antibiotics; Z88.5 Allergy status to narcotic agent
CPT/HCPCS: 96372; 99283; J0696

== ENCOUNTER 2024-01-18 18:18 | Inpatient (IN) | payer MEDICARE, OTHER ==
[~2024-01-18] VITALS: Ht 165.1 cm; Wt 77.5 kg
[~2024-01-18 18:18] MED LIST changes: +CLIN1CAP70 PO; +MECL-90 PO; -MECL1TAB32 PO
[2024-01-18 19:52] LABS: Basophils # (auto) 0 10 ^3/uL (0-0.2); Eosinophils # (auto) 0 10 ^3/uL (0-0.8); Monocytes # (auto) 0.5 10 ^3/uL (0-1.3); Nucleated Red Blood Cells % 0.1 %; White Blood Cell 6.3 10^3/uL (4.4-10.8)
[2024-01-18 19:54] LABS: Basophils % (auto) 0.5 % (0.0-2.0); Eosinophils % (auto) 0.6 % (0.0-7.0); Hematocrit 36.4 % (36.0-46.0); Hemoglobin 11.7 g/dL (12.2-16.2); Lymphocytes # (auto) 2.4 10 ^3/uL (0.4-5.4); Lymphocytes % (auto) 38.2 % (10.0-50.0); Mean Corpuscular Hemoglobin 28.5 pg (28.0-32.0); Mean Corpuscular Hgb Conc. 32.1 g/dL (32.0-36.0); Mean Corpuscular Volume 88.8 fL (80.0-100.0); Monocytes % (auto) 7.2 % (0.0-12.0); Neutrophils # (auto) 3.4 10 ^3/uL (1.6-8.6); Neutrophils % (auto) 53.5 % (37.0-80.0); Red Cell Distribution Width 14.5 % (11.8-14.3)
[2024-01-18 19:55] LABS: Chloride 106 mmol/L (98-107); Potassium 3.5 mmol/L (3.5-5.1); Sodium 139 mmol/L (136-145)
[2024-01-18 19:56] LABS: Anion Gap 9 (5-15); Carbon Dioxide 24 mmol/L (20-30)
[2024-01-18 19:57] LABS: Calcium 9.8 mg/dL (8.5-10.1)
[2024-01-18 20:01] LABS: Glucose 120 mg/dL (74-106)
[2024-01-18 20:02] LABS: BUN/Creatinine Ratio 8.6 (10.0-20.0); Blood Urea Nitrogen 9 mg/dL (9-23)
[2024-01-18] MEDS: HYDROcodone-ACET 5/325MG TAB PO ONE (20:25)
[2024-01-18] MEDS ORDERED: ACETAMINOPHEN 325 MG TAB PO PRN (21:00)
[2024-01-18] MEDS ORDERED: HYDROcodone-ACET 5/325MG TAB PO PRN (21:00)
[2024-01-18] MEDS ORDERED: VANCOMYCIN PER PHARMACY 0 MG IV SCH ×2 (21:00→22:45)
[2024-01-18] MEDS ORDERED: ONDANSETRON HCL 4 MG/2 ML VIAL IV PRN (21:00)
[2024-01-18] MEDS ORDERED: DOCUSATE SOD 100 MG CAP PO PRN (21:00)
[2024-01-18] MEDS ORDERED: DEXTROSE (50%) 50ML SYRG IV PRN (21:00)
[2024-01-18 21:15] VITALS: PULSE 85; RESP 17; O2SAT 97
[2024-01-18] MEDS: PIPERACILLIN-TAZOB 3.375GM 100 ML IV ONE (21:28)
[2024-01-18] MEDS: SODIUM CHLOR 0.9% PF (SALINE LOCK) 10ML VIAL/SYR IV SCH (22:00)
[2024-01-18] MEDS ORDERED: FAMOTIDINE (10MG/ML) 2ML VL IV SCH (22:00)
[2024-01-18] MEDS: InsuLIN REG 1unit/0.01ml Soln (100units/ml) SC SCH (22:00)
[2024-01-18] MEDS ORDERED: ASCORBIC ACID 500 MG TAB PO SCH (22:00)
[2024-01-18] MEDS ORDERED: ATORVASTATIN 20 MG TAB PO SCH (22:00)
[2024-01-18] MEDS: ACCU-CHEK COMFORT CURVE STRIP VI SCH (22:00)
[2024-01-18] MEDS ORDERED: NITROGLYCERIN 0.4 MG SL TAB SL PRN ×2 (22:45→23:00)
[2024-01-19] VITALS (8 sets, daily range): BP systolic 98–143; BP diastolic 66–86; PULSE 65–80; RESP 14–20; TEMP 97.1–98.1; O2SAT 97–99
[2024-01-19] MEDS: VANCOMYCIN 1GM/200ML 200 ML IV ONE ×2 (00:10→02:58)
[2024-01-19] MEDS ORDERED: ACETAMINOPHEN 325 MG TAB PO PRN (00:30)
[2024-01-19] MEDS: InsuLIN REG 1unit/0.01ml Soln (100units/ml) SC SCH (00:30)
[2024-01-19] MEDS ORDERED: DEXTROSE (50%) 50ML SYRG IV PRN (00:30)
[2024-01-19] MEDS ORDERED: NITROGLYCERIN 0.4 MG SL TAB SL PRN (00:30)
[2024-01-19] MEDS: FAMOTIDINE (10MG/ML) 2ML VL IV SCH (01:01)
[2024-01-19] MEDS: ATORVASTATIN 20 MG TAB PO SCH (01:02)
[2024-01-19] MEDS: HYDROcodone-ACET 5/325MG TAB PO PRN (01:02)
[2024-01-19] MEDS: SODIUM CHLOR 0.9% PF (SALINE LOCK) 10ML VIAL/SYR IV SCH (05:35)
[2024-01-19] MEDS: PIPERACILLIN-TAZOB 3.375GM 100 ML IV SCH (05:36)
[2024-01-19] MEDS: ACCU-CHEK COMFORT CURVE STRIP VI SCH (05:51)
[2024-01-19] MEDS ORDERED: PIPERACILLIN-TAZOB 3.375GM 100 ML IV SCH (06:00)
[2024-01-19] MEDS: LEVOTHYROXINE SODIUM 100 MCG TAB PO SCH (06:36)
[2024-01-19] MEDS ORDERED: LEVOTHYROXINE SODIUM 100 MCG TAB PO SCH (07:00)
[2024-01-19] MEDS ORDERED: ZINC SULFATE 220mg CAP or TAB PO SCH (10:00)
[2024-01-19] MEDS ORDERED: ASPirin 81 mg TAB PO SCH (10:00)
[2024-01-19] MEDS: ASPirin 81 mg TAB PO SCH (10:29)
[2024-01-19] MEDS: ASCORBIC ACID 500 MG TAB PO SCH (10:29)
[2024-01-19] MEDS: ZINC SULFATE 220mg CAP or TAB PO SCH (10:29)
[2024-01-19] MEDS: levoFLOXacin 500MG 100 ML IV ONE (15:14)
[2024-01-19] MEDS: SODIUM CHLORIDE 0.9% 1,000 ML IV SCH (15:15)
[2024-01-19] MEDS: LINEZOLID 600MG/300ML 300 ML IV SCH (22:56)
[2024-01-20] VITALS (8 sets, daily range): BP systolic 103–129; BP diastolic 68–90; PULSE 70–94; RESP 16–75; TEMP 97–98.7; O2SAT 96–98
[2024-01-20 06:09] LABS: Basophils # (auto) 0 10 ^3/uL (0-0.2); Basophils % (auto) 0.5 % (0.0-2.0); Eosinophils # (auto) 0.1 10 ^3/uL (0-0.8); Eosinophils % (auto) 1.2 % (0.0-7.0); Hematocrit 33.4 % (36.0-46.0); Hemoglobin 11.1 g/dL (12.2-16.2); Lymphocytes # (auto) 2.2 10 ^3/uL (0.4-5.4); Lymphocytes % (auto) 48.9 % (10.0-50.0); Mean Corpuscular Hemoglobin 28.9 pg (28.0-32.0); Mean Corpuscular Hgb Conc. 33.1 g/dL (32.0-36.0); Mean Corpuscular Volume 87.2 fL (80.0-100.0); Monocytes # (auto) 0.4 10 ^3/uL (0-1.3); Monocytes % (auto) 8.3 % (0.0-12.0); Neutrophils # (auto) 1.9 10 ^3/uL (1.6-8.6); Neutrophils % (auto) 41.1 % (37.0-80.0); Red Blood Cells 3.83 10^6/uL (4.0-5.20); Red Cell Distribution Width 14.1 % (11.8-14.3); White Blood Cell 4.5 10^3/uL (4.4-10.8)
[2024-01-20 06:22] LABS: Albumin 3.9 g/dL (3.2-4.8); Alkaline Phosphatase 52 U/L (46-116); Anion Gap 6 (5-15); Aspartate Aminotransferase 11 U/L (13-40); BUN/Creatinine Ratio 7.4 (10.0-20.0); Blood Urea Nitrogen 6 mg/dL (9-23); Calcium 9.4 mg/dL (8.7-10.4); Carbon Dioxide 27 mmol/L (20-30); Chloride 106 mmol/L (98-107); Glucose 105 mg/dL (74-106); Potassium 3.5 mmol/L (3.5-5.1); Sodium 139 mmol/L (136-145)
[2024-01-20 06:23] LABS: Bilirubin, Total 0.5 mg/dL (0.2-1.0); Total Protein 6.8 g/dL (5.7-8.2)
[2024-01-20 06:29] LABS: Alanine Aminotransferase 9 U/L (7-40)
[2024-01-20 07:11] LABS: Erythrocyte Sedimentation Rate 95 mm/hr (0-20)
[2024-01-20] MEDS ORDERED: levoFLOXacin 500MG 100 ML IV SCH (10:00)
[2024-01-20] MEDS: levoFLOXacin 250MG 50 ML IV SCH (10:05)
[2024-01-20] MEDS: DOCUSATE SOD 100 MG CAP PO PRN (22:10)
[2024-01-21] VITALS (8 sets, daily range): BP systolic 111–124; BP diastolic 66–97; PULSE 65–95; RESP 16–20; TEMP 97.3–98.6; O2SAT 95–100
[2024-01-21] MEDS: CEFEPIME 2GM/50ML NS 50 ML IV ONE (10:30)
[2024-01-21] MEDS ORDERED: ATEN-60 PO (12:23)
[2024-01-21] MEDS ORDERED: DICL1GEL59 TOP (12:23)
[2024-01-21] MEDS ORDERED: ESTR0.1C5 VA (12:23)
[2024-01-21] MEDS: LACTULOSE 20Gm/30ML SOLN PO ONE (14:11)
[2024-01-21] MEDS: CEFEPIME 2GM/50ML NS 50 ML IV SCH (17:25)
[2024-01-22] VITALS (7 sets, daily range): BP systolic 113–145; BP diastolic 74–93; PULSE 67–85; RESP 17–20; TEMP 97–98; O2SAT 97–100
[2024-01-22 07:17] LABS: Hematocrit 33.2 % (36.0-46.0); Hemoglobin 11.1 g/dL (12.2-16.2); Mean Corpuscular Hemoglobin 29.1 pg (28.0-32.0); Mean Corpuscular Hgb Conc. 33.3 g/dL (32.0-36.0); Mean Corpuscular Volume 87.5 fL (80.0-100.0); Red Cell Distribution Width 14.1 % (11.8-14.3); White Blood Cell 3.9 10^3/uL (4.4-10.8)
[2024-01-22 07:23] LABS: Anion Gap 7 (5-15); Carbon Dioxide 26 mmol/L (20-30); Chloride 107 mmol/L (98-107); Potassium 3.6 mmol/L (3.5-5.1); Sodium 140 mmol/L (136-145)
[2024-01-22 07:24] LABS: Band Neutrophils % (manual) 0; Basophils % (manual) 0 (0.0-2.0); Blast Cells 0; Calcium 9.6 mg/dL (8.5-10.1); Eosinophils % (manual) 0 (0-7); Metamyelocytes % 0; Myelocytes % 0; Promyelocytes % 0; Reactive Lymphocytes 0
[2024-01-22 07:29] LABS: BUN/Creatinine Ratio 7.6 (10.0-20.0); Blood Urea Nitrogen 7 mg/dL (9-23); Glucose 106 mg/dL (74-106)
[2024-01-22 08:02] LABS: Lymphocytes % (manual) 65 (10.0-50.0); Monocytes % (manual) 10 (0-12); Platelet Estimate Adequate
[2024-01-22] MEDS: FAMOTIDINE 20 MG TAB PO SCH (09:28)
[2024-01-22] MEDS: levoFLOXacin 750MG 150 ML IV SCH (13:31)
[2024-01-22] MEDS: CEFEPIME 2GM/50ML NS 50 ML IV SCH (21:58)
[2024-01-23 01:00] VITALS: BP 159/82; PULSE 77; RESP 20; TEMP 97.9; O2SAT 100
[2024-01-23 05:00] VITALS: BP 140/84; PULSE 70; RESP 20; TEMP 97.3; O2SAT 99
[2024-01-23 09:00] VITALS: BP 133/86; PULSE 59; RESP 16; TEMP 97.9; O2SAT 99
[2024-01-23 10:24] VITALS: BP 133/86; PULSE 59; RESP 16; TEMP 97.9; O2SAT 99
[2024-01-23] MEDS: ONDANSETRON HCL 4 MG/2 ML VIAL IV PRN (12:18)
[2024-01-23 12:44] VITALS: BP 149/92; PULSE 73; RESP 16; TEMP 98; O2SAT 99
[2024-01-23 17:00] VITALS: BP 147/92; PULSE 78; RESP 16; TEMP 97.9; O2SAT 99
== END 2024-01-23 18:23 | DRG 863 ==
LOC: ER 18:18 → CENTRAL 22:39 → OVERFLOW 22:39 → UNDOADMIN 22:39 → OVERFLOW 23:15 → CENTRAL 23:28
PROVIDERS: ADMIT Nurse Practitioner Family; ATTEND Internal Medicine
DX: T81.41XA Infection following a procedure, superficial incisional surgical site, initial encounter (principal); I13.0 Hypertensive heart and chronic kidney disease with heart failure and stage 1 through stage 4 chronic kidney disease, or unspecified chronic kidney disease; I50.9 Heart failure, unspecified; E78.5 Hyperlipidemia, unspecified; I25.10 Atherosclerotic heart disease of native coronary artery without angina pectoris; I48.91 Unspecified atrial fibrillation; E66.3 Overweight; E03.9 Hypothyroidism, unspecified; E11.22 Type 2 diabetes mellitus with diabetic chronic kidney disease; Y83.8 Other surgical procedures as the cause of abnormal reaction of the patient, or of later complication, without mention of misadventure at the time of the procedure; B96.5 Pseudomonas (aeruginosa) (mallei) (pseudomallei) as the cause of diseases classified elsewhere; R94.31 Abnormal electrocardiogram [ECG] [EKG]; N18.2 Chronic kidney disease, stage 2 (mild); Z88.5 Allergy status to narcotic agent; Z95.5 Presence of coronary angioplasty implant and graft; Z90.710 Acquired absence of both cervix and uterus; Z91.81 History of falling; Z98.1 Arthrodesis status; Z68.28 Body mass index [BMI] 28.0-28.9, adult; Z87.11 Personal history of peptic ulcer disease; Z82.49 Family history of ischemic heart disease and other diseases of the circulatory system; Y92.89 Other specified places as the place of occurrence of the external cause
CPT/HCPCS: 36415; 70491; 76536; 80048; 80053; 82962; 85007; 85025; 85027; 85652; 87040; 87077; 87081; 87186; 87205; 93005; 97163; G0378; J0692; J1815; J1956; J2405; J2543; J3490

== ENCOUNTER → 2024-03-05 | Outpatient (CLI) | payer MEDICARE, OTHER ==
[~2024-03-05] MED LIST changes: +ATEN-60 PO; -CHOL20007 PO; +DICL1GEL59 TOP; -ESOM40CA83 PO; +ESTR0.1C5 VA; -PANT40T PO
[2024-03-05 10:10] LABS: Anion Gap 8 (5-15); Carbon Dioxide 25 mmol/L (20-30); Chloride 108 mmol/L (98-107); Potassium 3.6 mmol/L (3.5-5.1); Sodium 141 mmol/L (136-145)
[2024-03-05 10:11] LABS: Calcium 9.6 mg/dL (8.5-10.1)
[2024-03-05 10:16] LABS: BUN/Creatinine Ratio 11.2 (10.0-20.0); Blood Urea Nitrogen 10 mg/dL (9-23); Glucose 110 mg/dL (74-106); Triglycerides 110 mg/dL (< 150)
[2024-03-05 10:17] LABS: Creatinine, Urine 186.95 mg/dL (30.0-125.0); LDL Cholesterol 134 mg/dL (< 100)
[2024-03-05 10:18] LABS: Cholesterol 224 mg/dL (< 200); HDL Cholesterol 73 mg/dL (40-59)
== END | disposition home or self-care (01) ==
LOC: LAB 08:59
PROVIDERS: ATTEND Internal Medicine
DX: I10 Essential (primary) hypertension (principal); E11.9 Type 2 diabetes mellitus without complications
CPT/HCPCS: 36415; 80048; 80061; 82043; 82570; 83036; 84443

== ENCOUNTER → 2024-03-26 | Outpatient (CLI) | payer MEDICARE, OTHER ==
[2024-03-26 10:05] LABS: Basophils # (auto) 0 10 ^3/uL (0-0.2); Basophils % (auto) 0.9 % (0.0-2.0); Eosinophils # (auto) 0.1 10 ^3/uL (0-0.8); Eosinophils % (auto) 2.3 % (0.0-7.0); Hematocrit 35.9 % (36.0-46.0); Hemoglobin 11.7 g/dL (12.2-16.2); Lymphocytes # (auto) 1.9 10 ^3/uL (0.4-5.4); Lymphocytes % (auto) 50.7 % (10.0-50.0); Mean Corpuscular Hemoglobin 28.2 pg (28.0-32.0); Mean Corpuscular Hgb Conc. 32.5 g/dL (32.0-36.0); Mean Corpuscular Volume 86.8 fL (80.0-100.0); Monocytes # (auto) 0.3 10 ^3/uL (0-1.3); Monocytes % (auto) 7.3 % (0.0-12.0); Neutrophils # (auto) 1.5 10 ^3/uL (1.6-8.6); Neutrophils % (auto) 38.8 % (37.0-80.0); Nucleated Red Blood Cells % 0.4 %; Red Blood Cells 4.14 10^6/uL (4.0-5.20); Red Cell Distribution Width 15.4 % (11.8-14.3); White Blood Cell 3.8 10^3/uL (4.4-10.8)
[2024-03-26 10:34] LABS: Albumin 3.6 g/dL (3.2-4.8); Alkaline Phosphatase 54 U/L (46-116); Anion Gap 4 (5-15); Aspartate Aminotransferase 10 U/L (13-40); Blood Urea Nitrogen 12 mg/dL (9-23); Calcium 9.6 mg/dL (8.5-10.1); Carbon Dioxide 27 mmol/L (20-30); Chloride 111 mmol/L (98-107); Glucose 91 mg/dL (74-106); Potassium 3.7 mmol/L (3.5-5.1); Sodium 142 mmol/L (136-145)
[2024-03-26 10:35] LABS: Bilirubin, Direct 0.2 mg/dL (<0.3); Bilirubin, Total 0.6 mg/dL (0.2-1.0); Total Protein 6.9 g/dL (5.7-8.2)
[2024-03-26 10:37] LABS: Alanine Aminotransferase < 9 U/L (7-40); Free T3 2.96 pg/mL (2.3-4.2)
[2024-03-26 10:38] LABS: Follicle Stimulating Hormone 54.12 IU/L (SEE BELOW)
[2024-03-27 09:07] LABS: Estradiol 90.2 pg/mL (0.0-54.7); Testosterone 7 ng/dL (3-67); Thyroid Peroxidase (TPO) Ab <9 IU/mL (0-34); Thyroxine (T4) 7.6 ug/dL (4.5-12.0)
[2024-04-01 21:06] LABS: Free Testosterone(Direct) 0.6 pg/mL (0.0-4.2)
== END | disposition home or self-care (01) ==
LOC: LAB 09:42
PROVIDERS: ATTEND Internal Medicine
DX: Z13.220 Encounter for screening for lipoid disorders (principal); E78.5 Hyperlipidemia, unspecified; E34.9 Endocrine disorder, unspecified; E55.9 Vitamin D deficiency, unspecified; E07.89 Other specified disorders of thyroid; E53.9 Vitamin B deficiency, unspecified; N95.1 Menopausal and female climacteric states
CPT/HCPCS: 36415; 80053; 80076; 82306; 82607; 82670; 83001; 84144; 84402; 84403; 84436; 84443; 84481; 85025; 86376

== ENCOUNTER → 2024-06-16 | Outpatient (CLI) | payer MEDICARE, OTHER ==
[2024-06-16 10:52] LABS: Albumin 4.3 g/dL (3.2-4.8); Bilirubin, Direct 0.3 mg/dL (<0.3); Bilirubin, Total 0.9 mg/dL (0.2-1.0); Total Protein 6.6 g/dL (5.7-8.2)
== END | disposition home or self-care (01) ==
LOC: LAB 08:52
PROVIDERS: ATTEND Internal Medicine
DX: E03.9 Hypothyroidism, unspecified (principal); E78.5 Hyperlipidemia, unspecified
CPT/HCPCS: 36415; 80076; 84443

== ENCOUNTER → 2024-09-15 | Outpatient (CLI) | payer MEDICARE, OTHER ==
[~2024-09-15] MED LIST changes: +CIPR1SUS8 OT
[2024-09-15 08:40] LABS: Anion Gap 6 (5-15); Carbon Dioxide 30 mmol/L (20-31); Chloride 111 mmol/L (98-107); Potassium 3.6 mmol/L (3.5-5.1); Sodium 147 mmol/L (136-145)
[2024-09-15 08:41] LABS: Calcium 9.9 mg/dL (8.7-10.4)
[2024-09-15 08:44] LABS: Creatinine, Urine 101.81 mg/dL (30.0-125.0)
[2024-09-15 08:46] LABS: BUN/Creatinine Ratio 9.2 (10.0-20.0); Blood Urea Nitrogen 9 mg/dL (9-23); Glucose 101 mg/dL (74-106); Micro Albumin < 3.0 mg/L (<30.0)
== END | disposition home or self-care (01) ==
LOC: LAB 07:46
PROVIDERS: ATTEND Internal Medicine
DX: E11.9 Type 2 diabetes mellitus without complications (principal); E78.5 Hyperlipidemia, unspecified; E03.0 Congenital hypothyroidism with diffuse goiter
CPT/HCPCS: 36415; 80048; 82043; 82570; 83036; 84443

== ENCOUNTER 2024-11-07 22:16 | Inpatient (IN) | payer MEDICARE, OTHER ==
[~2024-11-07] VITALS: Ht 170.2 cm; Wt 68.9 kg
--- NOTE | 2024-11-07 23:00 | DVH ---
CHEST RADIOGRAPH Indication: Chest pain Technique: Single frontal view of the chest was obtained Comparison: XY CHEST PORTABLE on DOS: 04/19/23, XY CHEST XRAY 1 VIEW on DOS: 04/03/23 FINDINGS: Lines and Tubes: None Lungs: No focal consolidation. Pleura: No effusion. No pneumothorax. Cardiomediastinal contours: Unremarkable Bones: No acute osseous abnormality. IMPRESSION: 1. No acute cardiopulmonary disease.
[2024-11-08] VITALS (7 sets, daily range): BP systolic 104–120; BP diastolic 74–80; PULSE 57–79; RESP 14–19; TEMP 97.5–97.6; O2SAT 98–100
[2024-11-08 00:02] LABS: Alanine Aminotransferase 12 U/L (7-40); Albumin 4.3 g/dL (3.2-4.8); Alkaline Phosphatase 61 U/L (46-116); Anion Gap 9 (5-15); BUN/Creatinine Ratio 11.7 (10.0-20.0); Blood Urea Nitrogen 11 mg/dL (9-23); Carbon Dioxide 22 mmol/L (20-31); Potassium 3.8 mmol/L (3.5-5.1); Sodium 141 mmol/L (136-145)
[2024-11-08 00:09] LABS: Aspartate Aminotransferase 12 U/L (13-40); Bilirubin, Total 0.3 mg/dL (0.2-1.0); Chloride 110 mmol/L (98-107); Glucose 130 mg/dL (74-106)
[2024-11-08 00:25] LABS: Total Protein 7.1 g/dL (5.7-8.2)
[2024-11-08] MEDS: NITROGLYCERIN 0.4 MG SL TAB SL ONE (00:25)
[2024-11-08 00:36] LABS: Basophils # (auto) 0 10 ^3/uL (0-0.2); Basophils % (auto) 0.4 % (0.0-2.0); Eosinophils # (auto) 0.1 10 ^3/uL (0-0.8); Eosinophils % (auto) 1.4 % (0.0-7.0); Hematocrit 38.6 % (36.0-46.0); Lymphocytes # (auto) 3.2 10 ^3/uL (0.4-5.4); Lymphocytes % (auto) 51.5 % (10.0-50.0); Mean Corpuscular Hemoglobin 29.9 pg (28.0-32.0); Mean Corpuscular Hgb Conc. 33.8 g/dL (32.0-36.0); Mean Corpuscular Volume 88.5 fL (80.0-100.0); Monocytes # (auto) 0.4 10 ^3/uL (0-1.3); Monocytes % (auto) 5.8 % (0.0-12.0); Neutrophils # (auto) 2.5 10 ^3/uL (1.6-8.6); Neutrophils % (auto) 40.9 % (37.0-80.0); Nucleated Red Blood Cells % 0.1 %; Platelet Count (auto) 210 10^3/uL (140-450); Red Blood Cells 4.36 10^6/uL (4.0-5.20); Red Cell Distribution Width 14.8 % (11.8-14.3); White Blood Cell 6.2 10^3/uL (4.4-10.8)
[2024-11-08 00:49] LABS: Urine Bacteria None Seen /hpf (None Seen)
[2024-11-08 01:45] LABS: Urine Blood Negative /uL (Negative); Urine Clarity Turbid (Clear); Urine Color Yellow (Yellow); Urine Mucus FEW (None Seen); Urine Protein, UAD TRACE (Negative); Urine Squamous Epithelial Cell FEW /hpf (<5); Urine Urobilinogen 2 mg/dL (Negative); Urine WBC <1 /hpf (0 - 5); Urine pH 5.5 (5.0-9.0)
[2024-11-08] MEDS: fentaNYL CITRATE 100 MCG/2 ML VL IV ONE (01:45)
--- NOTE | 2024-11-08 02:26 | ED.PDOC ---
HPI Comments This patient is a pleasant 74-year-old female who arrives the ED today via EMS due to complaints of chest pain and tightness concerns that has been intermittent for the past three days. Patient states that earlier today the symptoms worsened and therefore, patient came to the ED for evaluation. Patient has a history of multiple cardiac events including stent placement. 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 Patient denies any fever nausea or vomiting. Vital signs were stable on arrival. 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 Allergies: Coded Allergies: Morphine (Verified Allergy, Unknown, 10/11/22) Home Meds Active Scripts Ciprofloxacin-Dexamethasone (Ciprofloxacin/Dexamethaso 0.3-0.1 %) 1 Lety Lety, 1 LETY OT BID for 7 Days, #2 ML 4 drops in left ear twice daily x7 days Prov:OLEG HENDRIX 07/20/24 Clindamycin Hcl (Clindamycin Hcl) 300 Mg Cap, 1 CAP PO TID for 7 Days, #21 CAP 0 Refills Prov:KATI CHILEL 01/09/24 Docusate Sodium (Docusate Sodium) 100 Mg Cap, 100 MG PO BID for 20 Days, #40 CAP Prov:LEXIE PALAFOX NP 01/04/24 Cyclobenzaprine HCl (Cyclobenzaprine Hydrochlo) 10 Mg Tab, 10 MG PO TID for 28 Days, #84 TAB take 3 times a day Prov:LEXIE PALAFOX NP 01/04/24 Ondansetron Odt 4MG Tab (ZOFRAN PO) 4 Mg Tb, 4 MG PO BID for 7 Days, #14 TAB ODT TAB-DISSOLVE IN MOUTH, THEN SWALLOW Prov:BRANDYN DOMINGUEZ MD 04/19/23 Meclizine Hcl (Meclizine Hcl) 25 Mg Tab, 25 MG PO Q8HPRN PRN, #30 TAB 1 Refill Prov:CHANTEL BOYD MD 10/17/22 Ibuprofen (Ibuprofen) 600 Mg Tab, 1 TAB PO TID, #30 TAB Prov:ELIZA PETERS NP 10/11/22 Aspirin (Aspirin Low Dose) 81 Mg Tab, 81 MG PO DAILY for 30 Days, #30 TAB Prov:IQRA QUINONES MD 08/02/22 Reported Medications Atenolol (Atenolol) 25 Mg Tab, 1 TAB PO BID 01/21/24 Estradiol Vaginal (Estradiol) 0.1 Mg/Gm Cre, 0.5 MG VA DAILY Apply 0.5 gram/pea sized amount to labia and vagina daily. 01/21/24 Diclofenac Sodium (Topical) (Voltaren Arthritis Pain) 1 % Gel, 2 GRAMS TOP QID Apply 2 grams topically fours times daily to affected areas. 01/21/24 Hydrocodone-Acetaminophen (Hydrocodone Bitartrate/AC 10-325 mg) 1 Tab Tab, 1 TAB PO TID 12/27/23 Potassium Chloride (Klor-Con M20) 20 Meq Tab, 1 TAB PO BID 04/05/23 Fexofenadine Hcl (Fexofenadine Hcl) 60 Mg Tab, 180 MG PO DAILY for 30 Days, MG 04/05/23 Dicyclomine Hcl (BENTYL CAPSULE) 10 Mg Cp, 1 CAP PO BID, #60 CAP 11 Refills 10/12/22 Spironolactone (Aldactone) 25 Mg Tab, 1 TAB PO DAILY, #90 TAB 1 Refill 10/12/22 Sucralfate (Sucralfate) 1 Gm Tab, 1 GM PO QID, GM 08/01/22 Lactulose (Enulose) 10 Gm/15 Ml Yandy, 10 GM PO DAILY, ML 08/01/22 Metformin Hydrochloride (Metformin Hcl) 500 Mg Tab, 1 TAB PO BID 12/29/21 Ezetimibe (Ezetimibe) 10 Mg Tab, 1 TAB PO DAILY 12/29/21 Cyclosporine (Ophth) (Restasis) 0.05 % Emu, 1 DROP EACHEYE BID, #60 VIAL 3 Refills 06/08/21 Ubrogepant (Ubrelvy) 50 Mg Tab, 50 MG PO DAILYPRN PRN for FOR HEADACHE Take 1 tablet by mouth once. May repeat dose once after 2 hours if needed. 06/08/21 Alendronate Sodium (Fosamax) 70 Mg Tab, 1 TAB PO QWEEKLY, #4 TAB 11 Refills 06/08/21 Gabapentin (Gabapentin) 300 Mg Cap, 300 MG PO DAILY for 30 Days, MG 06/08/21 Ferrous Sulfate (Ferosul) 325 Mg Tab, 325 MG PO DAILY, TAB 06/08/21 Ascorbic Acid (VITAMIN C TABLET) 500 Mg Tb, 1 TAB PO DAILY, #30 TAB 3 Refills 06/08/21 Hydrochlorothiazide (Hydrochlorothiazide) 25 Mg Tab, 25 MG PO DAILY for 30 Days, MG 06/08/21 Levothyroxine Sodium (Levothyroxine Sodium) 100 Mcg Tab, 1 TAB PO QAM 01/21/21 Amlodipine Besylate-Benazepril (AMLODIPINE BESYLATE/BENAZ) 1 Cap Cap, 1 CAP PO DAILY, #30 CAP 5 Refills 01/21/21 Famotidine (Famotidine) 40 Mg Tab, 40 MG PO HS, TAB 04/14/20 Ergocalciferol (VITAMIN D 91751 UNIT) 50,000 [place], [address] UNIT PO QWEEKLY, CAP 50,000 UNIT PO QFRIDAY 04/14/20 Nitroglycerin (NTROSTAT SUBLINGUAL) 0.4 Mg Sl, 0.4 MG SL PRN, TAB *MAY REPEAT EVERY 5 MINUTES X 3 TOTAL IF NO RELIEF, INITIATE ANALGESIC THERAPY. NOTIFY PHYSICIAN *Do not crush. 04/14/20 Furosemide (Lasix) 20 Mg Tb, 1 TAB PO DAILY, #90 TAB 1 Refill 04/14/20 Alprazolam (Xanax) 1 Mg Tab, 1 MG PO TID, TAB 03/09/19 Atorvastatin Calcium (Lipitor) 10 Mg Tab, 1 TAB PO HS, #30 TAB 5 Refills 03/07/19 Information Source: Patient, Emergency Med Personnel Mode of Arrival: EMS Severity: Moderate Timing: Days Duration: Intermittent Prehospital treatment: None Location: Substernal Quality: Sharp, Pressure, Crushing Onset: At Rest Cardiac Risk Factors: None History of: CT Past Medical History PAST MEDICAL HISTORY: Arthritis, CHF, DM, High Lipids, HTN, CT, PUD, Thyroid Surgical History: , Hysterectomy, PTCA BUCKLE STRINGER History: No Pertinent BUCKLE STRINGER History Family History Family History: Unknown Social History Smoker: Non-Smoker Alcohol: Denies ETOH Use Drugs: Denies Drug Use Lives In: Home Constitutional: denies: chills, diaphoresis, fatigue, fever, malaise, sweats, weakness, others EENTM: denies: blurred vision, double vision, ear bleeding, ear discharge, ear drainage, ear pain, ear ringing, eye pain, eye redness, hearing loss, mouth pain, mouth swelling, nasal discharge, nose bleeding, nose congestion, nose pain, photophobia, tearing, throat pain, throat swelling, voice changes, others Respiratory: denies: cough, hemoptysis, orthopnea, SOB at rest, shortness of breath, SOB with excertion, stridor, wheezing, others Cardiovascular: reports: chest pain; denies: dizzy spells, diaphoresis, Dyspnea on exertion, edema, irregular heart beat, left arm pain, lightheadedness, palpitations, PND, syncope, others Gastrointestinal: denies: abdomen distended, abdominal pain, blood streaked bowels, constipated, diarrhea, dysphagia, difficulty swallowing, hematemesis, melena, nausea, poor appetite, poor fluid intake, rectal bleeding, rectal pain, vomiting, others Genitourinary: denies: abnormal vagina bleeding, burning, dyspareunia, dysuria, flank pain, frequency, hematuria, incontinence, pain, , vagina discharge, urgency, others Neurological: denies: dizziness, fainting, headache, left sided numbness, left sided weakness, numbness, paresthesia, pre-existing deficit, right sided numbness, right sided weakness, seizure, speech problems, tingling, tremors, weakness, others Musculoskeletal: denies: back pain, gout, joint pain, joint swelling, muscle pain, muscle stiffness, neck pain, others Integumetry: denies: bruises, change in color, change in hair/nails, dryness, laceration, lesions, lumps, rash, wounds, others Allergic/Immunocompromised: denies: Difficulty Healing, Frequent Infections, Hives, Itching, others Hematologic/Lymphatic: denies: anemia, blood clots, easy bleeding, easy bruising, swollen glands, others Endocrine: denies: excessive hunger, excessive sweating, excessive thirst, excessive urination, flushing, intolerance to cold, intolerance to heat, unexplained weight gain, unexplained weight loss, others Psychiatric: denies: anxiety, bipolar disorder, depression, hopeless, panic disorder, schizophrenia, sleepless, suicidal, others Physical Exam General Appearance: Moderate Distress (Patient presents in [id number] distress due to chest pain concerns.), Normal HEENT: Normal ENT Inspection, Pharynx Normal, TMs Normal Neck: Full Range of Motion, Non-Tender, Normal, Normal Inspection Respiratory: Chest Non-Tender, Lungs Clear, No Accessory Muscle Use, No Respiratory Distress, Normal Breath Sounds, Other (Unremarkable auscultation bilateral lung perez. Unable to elicit any additional pain on palpation.) Cardiovascular: No Edema, No JVD, No Murmur, No Gallop, Normal Peripheral Pulses, Regular Rate/Rhythm, Other (Unremarkable cardiac evaluation.) Breast Exam: Deferred Gastrointestinal: No Organomegaly, Non Tender, No Pulsatile Mass, Normal Bowel Sounds, Soft Genitalia: Deferred Pelvic: Deferred Rectal: Deferred Extremities: No calf tenderness, Normal capillary refill, Normal inspection, Normal range of motion, Non-tender, No pedal edema Neurologic: Alert, No Motor Deficits, Normal Affect, Normal Mood, No Sensory Deficits Cerebellar Function: Normal Reflexes: Normal Skin: Dry, Normal Color, Warm Lymphatic: No Adenopathy Was a procedure done? Was a procedure done?: No CP Differential Dx Differential Diagnosis: A-fib, Anxiety / Panic Attack, Atrial Dysrhythmia, AV Block 1st Degree, CT Differential Diagnosis: CHF, HTN Essential Differential Diagnosis: Angina X-Ray, Labs, Meds, VS Vital Signs Date Time Temp Pulse Resp B/P (MAP) Pulse Ox O2 Delivery O2 Flow Rate FiO2 11/08/24 00:25 112/70 11/08/24 00:16 69 11/07/24 23:45 74 16 101/73 (82) 11/07/24 22:26 79 11/07/24 22:16 98.0 82 20 133/79 (97) 98 Lab Test 11/08/24 01:16 11/08/24 00:28 11/07/24 23:20 11/07/24 22:35 Range/Units Troponin I High Sensitivity < 3 L < 3 L < 3 L </=34 ng/L Urine Color Yellow Yellow Urine Clarity Turbid H Clear Urine pH 5.5 5.0-9.0 Urine Specific [place] 1.030 1.001-1.035 Urine Protein Trace H Negative Urine Ketones Trace Negative Urine Blood Negative Negative /uL Urine Nitrite Negative Negative Urine Bilirubin Negative Negative Urine Urobilinogen 2 H Negative mg/dL Urine Leukocyte Esterase Negative Negative /uL Urine RBC <1 0 - 4 /hpf Urine WBC <1 0 - 5 /hpf Urine Squamous Epithelial Cells Few <5 /hpf Urine Bacteria None seen None Seen /hpf Urine Mucus Few None Seen Urine Glucose Normal Normal mg/dL White Blood Count 6.2 4.4-10.8 10^3/uL Red Blood Count 4.36 4.0-5.20 10^6/uL Hemoglobin 13.0 12.2-16.2 g/dL Hematocrit 38.6 36.0-46.0 % Mean Corpuscular Volume 88.5 80.0-100.0 fL Mean Corpuscular Hemoglobin 29.9 28.0-32.0 pg Mean Corpuscular Hemoglobin Concent 33.8 32.0-36.0 g/dL Red Cell Distribution Width 14.8 H 11.8-14.3 % Platelet Count 210 140-450 10^3/uL Mean Platelet Volume 8.9 6.9-10.8 fL Neutrophils (%) (Auto) 40.9 37.0-80.0 % Lymphocytes (%) (Auto) 51.5 H 10.0-50.0 % Monocytes (%) (Auto) 5.8 0.0-12.0 % Eosinophils (%) (Auto) 1.4 0.0-7.0 % Basophils (%) (Auto) 0.4 0.0-2.0 % Neutrophils # (Auto) 2.5 1.6-8.6 10 ^3/uL Lymphocytes # (Auto) 3.2 0.4-5.4 10 ^3/uL Monocytes # (Auto) 0.4 0-1.3 10 ^3/uL Eosinophils # (Auto) 0.1 0-0.8 10 ^3/uL Basophils # (Auto) 0 0-0.2 10 ^3/uL Nucleated Red Blood Cells 0.1 % Sodium Level 141 136-145 mmol/L Potassium Level 3.8 3.5-5.1 mmol/L Chloride Level 110 H 98-107 mmol/L Carbon Dioxide Level 22 20-31 mmol/L Anion Gap 9 5-15 Blood Urea Nitrogen 11 9-23 mg/dL Creatinine 0.94 0.550-1.02 mg/dL Glomerular Filtration Rate Calc 64 >90 mL/min BUN/Creatinine Ratio 11.7 10.0-20.0 Serum Glucose 130 H 74-106 mg/dL Calcium Level 10.0 8.7-10.4 mg/dL Total Bilirubin 0.3 0.2-1.0 mg/dL Aspartate Amino Transferase (AST) 12 L 13-40 U/L Alanine Aminotransferase (ALT) 12 7-40 U/L Alkaline Phosphatase 61 46-116 U/L Total Protein 7.1 5.7-8.2 g/dL Albumin 4.3 3.2-4.8 g/dL X-Ray, Labs, Meds, VS Comment All studies performed the ED were evaluated by me personally. Laboratories were unremarkable for any systemic or cardiac related concern. EKG revealed a sinus rhythm with a rate of 69, mild left axis deviation and nonspecific T abnormalities and inferior leads. NH interval of 155 and QT interval of 388. Imaging studies were unremarkable for any intrapulmonary concerns. No consolidation your fibrotic disease noted. While laboratories and EKG studies were unremarkable now, to the patient's history, patient will be admitted for c ardiac evaluation in the morning and further workup as needed. Time of 1ST Reevaluation: 02:22 Reevaluation 1ST: Improved Consultation: PCP, Cardiology Patient Education/Counseling: Diagnosis, Treatment Family Education/Counseling: Diagnosis, Treatment Departure 1 Departure Time of Disposition: 02:23 Impression: Primary Impression: Acute coronary syndrome Additional Impression: Chest pain Disposition: 09 ADMITTED INPATIENT Condition: Stable Discharged With: Self Critical Care Note Critical Care Time?: No Stability Stability form required: No Heart Score Heart Score: Heart Score Response (Comments) Value History Slightly Suspicious 0 EKG Normal 0 Age >65 2 Risk Factors 1 or 2 risk factors 1 Troponin Normal limit 0 Total 3 BARBIE FIGUEREDO PAC Nov 08, 2024 02:26
[2024-11-08] MEDS ORDERED: ALPRAZolam 0.5 MG TAB PO PRN (03:30)
[2024-11-08] MEDS ORDERED: hydrALAZINE HCL 20 MG/ML VL IV PRN (03:30)
[2024-11-08] MEDS ORDERED: DOCUSATE SOD 100 MG CAP PO PRN (03:30)
[2024-11-08] MEDS ORDERED: DEXTROSE (50%) 50ML SYRG IV PRN (03:30)
[2024-11-08] MEDS ORDERED: ACETAMINOPHEN 325 MG TAB PO PRN (03:30)
[2024-11-08] MEDS ORDERED: ONDANSETRON HCL 4 MG/2 ML VIAL IV PRN (03:30)
--- NOTE | 2024-11-08 03:56 | DVHHP2 ---
History of Present Illness Reason for Visit: Acute coronary syndrome History of Present Illness The patient is a 74-year-old female with multiple past medical history including CHF, DM, AR, and hypertension who presented to [facility] ED with complaint of chest pain. Patient reports has been having intermittent chest pain for the past 3 days, nonradiating, sharp in nature, chest tightness, rating 6/10 numeric scale, getting worse that prompted this visit. Patient was seen and evaluated in the ED, laboratory data shows WBC 6.2, platelets 210, sodium 141, potassium 3.8, BUN 11, creatinine 0.94, GFR 64, glucose 130, troponin 3, blood pressure 130/84, heart rate 68, temperature 98.0 F, O2 saturation 98% on room air. Chest x-ray show no acute cardiopulmonary disease. Please see medication orders section in the computer. On my assessment, patient denied chest pain at this moment, no headache, no dizziness, no diaphoresis, no shortness of breath, no nausea, no vomiting, no fever, no chills. Patient was admitted for further evaluation and medical management. Past Medical History Arthritis, CHF, DM, High Lipids, HTN, AR, PUD, Thyroid Past Surgical History , Hysterectomy, PTCA Family History Reviewed, noncontributory to the management of this case. Past Social History The patient lives at home, denies smoking, alcohol or illicit drugs abuse. Review of Systems Constitutional: Yes: Weakness; No: Fever, Chills, Sweats, Malaise, Other Eyes: No: Pain, Vision change, Conjunctivae inflammation, Eyelid inflammation, Other, Redness ENT: No: Ear pain, Ear discharge, Nose pain, Nose discharge, Nose congestion, Mouth pain, Mouth swelling, Throat pain, Throat swelling, Other Respiratory: No: Cough, Dry, Shortness of breath, SOB with excertion, Wheezing, Hemoptysis, Pleuritic Pain, Sputum, Wheezing, Other Cardiovascular: Chest Pain; No: Palpitations, Orthopnea, Paroxysmal Noc. Dyspnea, Edema, Lt Headedness, Other Gastrointestinal: No: Nausea, Vomiting, Abdominal Pain, Diarrhea, Constipation, Melena, Hematochezia, Other Genitourinary: No Dysuria, No Frequency, No Incontinence, No Hematuria, No Retention, No Other Musculoskeletal: No: other, neck pain, shoulder pain, arm pain, back pain, hand pain, leg pain, foot pain Skin: No: Rash, Lesions, Jaundice, Bruising, Other Neurological: No: Weakness, Numbness, Incoordination, Change in speech, Confusion, Seizures, Other Allergies: Coded Allergies: Morphine (Verified Allergy, Unknown, 10/11/22) Medications Current Medications Medications Dose Ordered Sig/Deborah Route Start Time Stop Time Status Last Admin Dose Admin Aspirin 81 mg DAILY PO 11/08/24 10:00 Atorvastatin Calcium 10 mg HS PO 11/08/24 22:00 Levothyroxine Sodium 75 mcg QAM@0600 PO 11/08/24 06:00 Hydralazine HCl 10 mg Q6HP PRN IV 11/08/24 03:30 Diagnostic Test (Pha) 1 strip ACHS 11/08/24 07:00 Insulin Human Regular ACHS SC 11/08/24 07:00 Dextrose 50 ml UD PRN IV 11/08/24 03:30 Sodium Chloride 10 ml Q8HR IV 11/08/24 06:00 Acetaminophen/ Hydrocodone Bitart 1 tab Q4HP PRN PO 11/08/24 03:30 UNV Ondansetron HCl 4 mg Q4HP PRN IV 11/08/24 03:30 Docusate Sodium 100 mg BIDPRN PRN PO 11/08/24 03:30 Acetaminophen 650 mg Q6HP PRN PO 11/08/24 03:30 Alprazolam 0.5 mg Q8HPRN PRN PO 11/08/24 03:30 Exam Vital Signs Vital Signs Date Time Temp Pulse Resp B/P (MAP) Pulse Ox O2 Delivery O2 Flow Rate FiO2 11/08/24 03:10 98.0 60 18 130/84 (99) 98 98.0 General Appearance: Alert, Oriented X3, Cooperative, No acute distress HEENT: Atraumatic, PERRLA, EOMI, Mucous membr. moist/pink Respiratory: Clear to auscultation, Normal air movement Cardiovascular: Regular rate, Normal S1, Normal S2, No murmurs Abdominal: Normal bowel sounds, Soft, No tenderness, No hepatospenomegaly, No masses Extremities: No clubbing, No cyanosis, No edema, Normal pulses, No tenderness/swelling Skin: No rashes, No breakdown Neuro: Normal speech, Normal tone, Cranial nerves 3-12 NL, Reflexes 2+, Other (Generalized weakness) Psych/Mental Status: Mental status NL, Mood NL Labs/Xrays Labs Test 11/08/24 01:16 11/08/24 00:28 11/07/24 22:35 Range/Units Troponin I High Sensitivity < 3 L </=34 ng/L Urine Color Yellow Yellow Urine Clarity Turbid H Clear Urine pH 5.5 5.0-9.0 Urine Specific [place] 1.030 1.001-1.035 Urine Protein Trace H Negative Urine Ketones Trace Negative Urine Blood Negative Negative /uL Urine Nitrite Negative Negative Urine Bilirubin Negative Negative Urine Urobilinogen 2 H Negative mg/dL Urine Leukocyte Esterase Negative Negative /uL Urine RBC <1 0 - 4 /hpf Urine WBC <1 0 - 5 /hpf Urine Squamous Epithelial Cells Few <5 /hpf Urine Bacteria None seen None Seen /hpf Urine Mucus Few None Seen Urine Glucose Normal Normal mg/dL White Blood Count 6.2 4.4-10.8 10^3/uL Red Blood Count 4.36 4.0-5.20 10^6/uL Hemoglobin 13.0 12.2-16.2 g/dL Hematocrit 38.6 36.0-46.0 % Mean Corpuscular Volume 88.5 80.0-100.0 fL Mean Corpuscular Hemoglobin 29.9 28.0-32.0 pg Mean Corpuscular Hemoglobin Concent 33.8 32.0-36.0 g/dL Red Cell Distribution Width 14.8 H 11.8-14.3 % Platelet Count 210 140-450 10^3/uL Mean Platelet Volume 8.9 6.9-10.8 fL Neutrophils (%) (Auto) 40.9 37.0-80.0 % Lymphocytes (%) (Auto) 51.5 H 10.0-50.0 % Monocytes (%) (Auto) 5.8 0.0-12.0 % Eosinophils (%) (Auto) 1.4 0.0-7.0 % Basophils (%) (Auto) 0.4 0.0-2.0 % Neutrophils # (Auto) 2.5 1.6-8.6 10 ^3/uL Lymphocytes # (Auto) 3.2 0.4-5.4 10 ^3/uL Monocytes # (Auto) 0.4 0-1.3 10 ^3/uL Eosinophils # (Auto) 0.1 0-0.8 10 ^3/uL Basophils # (Auto) 0 0-0.2 10 ^3/uL Nucleated Red Blood Cells 0.1 % Sodium Level 141 136-145 mmol/L Potassium Level 3.8 3.5-5.1 mmol/L Chloride Level 110 H 98-107 mmol/L Carbon Dioxide Level 22 20-31 mmol/L Anion Gap 9 5-15 Blood Urea Nitrogen 11 9-23 mg/dL Creatinine 0.94 0.550-1.02 mg/dL Glomerular Filtration Rate Calc 64 >90 mL/min BUN/Creatinine Ratio 11.7 10.0-20.0 Serum Glucose 130 H 74-106 mg/dL Calcium Level 10.0 8.7-10.4 mg/dL Total Bilirubin 0.3 0.2-1.0 mg/dL Aspartate Amino Transferase (AST) 12 L 13-40 U/L Alanine Aminotransferase (ALT) 12 7-40 U/L Alkaline Phosphatase 61 46-116 U/L Total Protein 7.1 5.7-8.2 g/dL Albumin 4.3 3.2-4.8 g/dL PATIENT: DREA HUANGCCT: [id number] UNIT: [id number] : 1950 LOC: ER ROOM / BED: / AGE / SEX: 74 / F ADM STATUS: REG ER SERVICE 25 ORDERING PHYSICIAN: BARBIE FIGUEREDO PAC PROCEDURE(s): CXRP - CHEST PORTABLE REASON: Chest pain ORDER NUMBER(s): [id number], ACCESSION NUMBER(s): [id number] CHEST RADIOGRAPH Indication: Chest pain Technique: Single frontal view of the chest was obtained Comparison: XY CHEST PORTABLE on DOS: 04/19/23, XY CHEST XRAY 1 VIEW on DOS: 04/03/23 FINDINGS: Lines and Tubes: None Lungs: No focal consolidation. Pleura: No effusion. No pneumothorax. Cardiomediastinal contours: Unremarkable Bones: No acute osseous abnormality. IMPRESSION: 1. No acute cardiopulmonary disease. Assessment/Plan Assessment/Plan Acute coronary syndrome Generalized weakness Plan 1. Admit to telemetry unit 2. Breathing treatment 3. Pain control management 4. Management of fluids and electrolytes 5. Consultation for hospitalist 6. Diagnostic tests chest x-ray 7. DVT prophylaxis-on aspirin 8. Repeat labs CBC, CMP in a.m. 9. Continue with current medical management 10. Treatment plan discussed with patient and RN. Patient verbalized understanding. Plan discussed with: Patient, Other (RN) My Orders Orders - MARLEY MARSH DNP Procedure Category Date Status Time B-Type Natriuretic LAB 11/08/24 Logged Peptide 03:29 Complete Blood Count LAB 11/08/24 Logged 03:29 Comprehensive LAB 11/08/24 Logged Metabolic Panel 03:29 Consistent DIET 11/08/24 Transmitted Carb(Ccho)Diabetes Breakfast Aspirin Tablet PHA 11/08/24 In Process 10:00 Atorvastatin (Lipitor) PHA 11/08/24 In Process 22:00 Levothyroxine Tablet PHA 11/08/24 In Process (Synthroid Tablet) 06:00 Thyroid Stimulating LAB 11/08/24 Logged Hormone 03:29 Hydralazine Injection PHA 11/08/24 In Process (Apresoline Inject 03:30 Glucose Blood PHA 11/08/24 In Process (Accu-Chek Comfort 07:00 Insulin R (Human) PHA 11/08/24 In Process (Insulin R) 07:00 Dextrose 50% Syringe PHA 11/08/24 In Process 03:30 Allergies KELLY 11/08/24 In Process 03:29 Code Status CODE 11/08/24 Transmitted 03:29 Sodium Chloride Lock PHA 11/08/24 In Process (Saline Lock Ns) 06:00 Oxygen Per Hour RT 11/08/24 Transmitted 03:29 Hydrocodone-Acet PHA 11/08/24 Pending 5/325mg Tab ([place] 03:30 Ondansetron Hcl PHA 11/08/24 In Process (Zofran) 03:30 Docusate Sodium PHA 11/08/24 In Process Capsule (Colace 03:30 Complete Blood Count LAB 11/09/24 Verified 04:00 Comprehensive LAB 11/09/24 Verified Metabolic Panel 04:00 Condition: Serious KELLY 11/08/24 In Process 03:29 Acetaminophen Tablet PHA 11/08/24 In Process (Tylenol Tablet) 03:30 Bedrest With Bathroom KELLY 11/08/24 In Process Privileg 03:29 Sequential KELLY 11/08/24 In Process Compression Device Alprazolam Tablet PHA 11/08/24 In Process (Xanax Tablet) 03:30 Admit ADMIT 11/08/24 Verified 03:55 Nitroglycerin PHA 11/08/24 Verified Sublingual (Ntrostat 04:00 Notify Of Changes BANNER 11/08/24 Verified From Base 03:55 Wax Pattern Assembler For BANNER 11/08/24 Verified 24 Hours 03:55 Emergency Dysrhythmia BANNER 11/08/24 Verified Protocol 03:55 Rhythm Strips Once BANNER 11/08/24 Verified Every Shift 03:55 Oxygen By Nasal RT 11/08/24 Verified Cannula 03:55 Problem List: (1) Acute coronary syndrome (2) Generalized weakness Date of Service: Nov 08, 2024 Billing Provider: MARLEY MARSH DNP Common Visit Codes: [id number] INP/OBS CARE (HIGH) MARLEY MARSH DNP Nov 08, 2024 03:56
[2024-11-08] MEDS ORDERED: NITROGLYCERIN 0.4 MG SL TAB SL PRN (04:00)
[2024-11-08 05:34] LABS: Alanine Aminotransferase 10 U/L (7-40); Albumin 4.2 g/dL (3.2-4.8); Alkaline Phosphatase 54 U/L (46-116); Anion Gap 6 (5-15); BUN/Creatinine Ratio 13.6 (10.0-20.0); Blood Urea Nitrogen 11 mg/dL (9-23); Calcium 9.8 mg/dL (8.7-10.4); Carbon Dioxide 24 mmol/L (20-31); Potassium 3.7 mmol/L (3.5-5.1); Sodium 141 mmol/L (136-145)
[2024-11-08 05:35] LABS: Bilirubin, Total 0.4 mg/dL (0.2-1.0); Total Protein 6.9 g/dL (5.7-8.2)
[2024-11-08 05:38] LABS: Aspartate Aminotransferase 13 U/L (13-40); Chloride 111 mmol/L (98-107); Glucose 108 mg/dL (74-106)
[2024-11-08 05:39] LABS: Hematocrit 37.7 % (36.0-46.0); Hemoglobin 12.5 g/dL (12.2-16.2); Mean Corpuscular Hemoglobin 29.4 pg (28.0-32.0); Mean Corpuscular Hgb Conc. 33.2 g/dL (32.0-36.0); Mean Corpuscular Volume 88.4 fL (80.0-100.0); Platelet Count (auto) 185 10^3/uL (140-450); Red Blood Cells 4.27 10^6/uL (4.0-5.20); Red Cell Distribution Width 14.6 % (11.8-14.3); White Blood Cell 4.5 10^3/uL (4.4-10.8)
[2024-11-08] MEDS: LEVOTHYROXINE SODIUM 25 MCG TAB PO SCH (06:27)
[2024-11-08] MEDS: SODIUM CHLOR 0.9% PF (SALINE LOCK) 10ML VIAL/SYR IV SCH (06:27)
[2024-11-08 06:40] LABS: Band Neutrophils % (manual) 0; Basophils % (manual) 0 (0.0-2.0); Blast Cells 0; Eosinophils % (manual) 0 (0-7); Metamyelocytes % 0; Myelocytes % 0; Promyelocytes % 0
[2024-11-08] MEDS: ACCU-CHEK COMFORT CURVE STRIP VI SCH (06:45)
[2024-11-08] MEDS: InsuLIN REG 1unit/0.01ml Soln (100units/ml) SC SCH (06:47)
[2024-11-08 08:20] LABS: Lymphocytes % (manual) 58 (10.0-50.0); Monocytes % (manual) 6 (0-12); Reactive Lymphocytes 7
[2024-11-08 08:21] LABS: Anisocytosis Slight; Ovalocytes FEW
[2024-11-08 08:22] LABS: Platelet Estimate Adequate
[2024-11-08] MEDS: HYDROcodone-ACET 5/325MG TAB PO PRN (08:25)
[2024-11-08] MEDS: ASPirin 81 mg TAB PO SCH (10:00)
--- NOTE | 2024-11-08 13:10 | DVHPN2 ---
Reviewed: Care Plan, H&P, Labs, Medications, Previous Orders, Radiology Changes from previous H/P or p: No Changes Eyes: No Pain, No Vision change, No Conjunctivae inflammation, No Eyelid inflammation, No Other, No Redness ENT: No Ear pain, No Ear discharge, No Nose pain, No Nose discharge, No Nose congestion, No Mouth pain, No Mouth swelling, No Throat pain, No Throat swelling, No Other Cardiovascular: Chest Pain; No Palpitations, No Orthopnea, No Paroxysmal Noc. Dyspnea, No Edema, No Lt Headedness, No Other Respiratory: No Cough, No Dry, No Shortness of breath, No SOB with excertion, No Wheezing, No Hemoptysis, No Pleuritic Pain, No Sputum, No Other Gastrointestinal: No Nausea, No Vomiting, No Abdominal Pain, No Diarrhea, No Constipation, No Melena, No Hematochezia, No Other Genitourinary: No Dysuria, No Frequency, No Incontinence, No Hematuria, No Retention, No Other Musculoskeletal: No other, No neck pain, No shoulder pain, No arm pain, No back pain, No hand pain, No leg pain, No foot pain Skin: No Rash, No Lesions, No Jaundice, No Bruising, No Other Objective Vitals Vital Signs Date Time Temp Pulse Resp B/P (MAP) Pulse Ox O2 Delivery O2 Flow Rate FiO2 11/08/24 12:00 97.6 57 18 120/74 (89) 98 97.6 11/08/24 11:03 Room Air* 0 21 Medications Current Medications Medications Dose Ordered Sig/Deborah Route Start Time Stop Time Status Last Admin Dose Admin Aspirin 81 mg DAILY PO 11/08/24 10:00 11/08/24 10:00 81 MG Atorvastatin Calcium 10 mg HS PO 11/08/24 22:00 Levothyroxine Sodium 75 mcg QAM@0600 PO 11/08/24 06:00 11/08/24 06:27 75 MCG Hydralazine HCl 10 mg Q6HP PRN IV 11/08/24 03:30 Diagnostic Test (Pha) 1 strip ACHS 11/08/24 07:00 11/08/24 06:45 1 STRIP Insulin Human Regular ACHS SC 11/08/24 07:00 Dextrose 50 ml UD PRN IV 11/08/24 03:30 Sodium Chloride 10 ml Q8HR IV 11/08/24 06:00 11/08/24 06:27 10 ML Acetaminophen/ Hydrocodone Bitart 1 tab Q4HP PRN PO 11/08/24 03:30 11/08/24 08:25 1 TAB Ondansetron HCl 4 mg Q4HP PRN IV 11/08/24 03:30 Docusate Sodium 100 mg BIDPRN PRN PO 11/08/24 03:30 Acetaminophen 650 mg Q6HP PRN PO 11/08/24 03:30 Alprazolam 0.5 mg Q8HPRN PRN PO 11/08/24 03:30 Nitroglycerin 0.4 mg Q5MINP PRN SL 11/08/24 04:00 Laboratory Results Laboratory Tests 11/08/24 04:57 Chemistry Test 11/07/24 22:35 11/08/24 04:57 Albumin 4.3 g/dL (3.2-4.8) 4.2 g/dL (3.2-4.8) Calcium Level 10.0 mg/dL (8.7-10.4) 9.8 mg/dL (8.7-10.4) Total Protein 7.1 g/dL (5.7-8.2) 6.9 g/dL (5.7-8.2) Cardiac Markers Test 11/08/24 04:00 B-Type Natriuretic Peptide 42.28 pg/mL (0-100) LFT Test 11/07/24 22:35 11/08/24 04:57 Alanine Aminotransferase (ALT) 12 U/L (7-40) 10 U/L (7-40) Alkaline Phosphatase 61 U/L (46-116) 54 U/L (46-116) Aspartate Amino Transferase (AST) 12 U/L (13-40) L 13 U/L (13-40) Total Bilirubin 0.3 mg/dL (0.2-1.0) 0.4 mg/dL (0.2-1.0) HgA1c, TSH Test 11/08/24 04:57 Thyroid Stimulating Hormone (TSH) 3.16 uIU/mL (0.55-4.78) Urinalysis Test 11/08/24 00:28 Urine Color Yellow (Yellow) Urine Clarity Turbid (Clear) H Urine pH 5.5 (5.0-9.0) Urine Specific [place] 1.030 (1.001-1.035) Urine Protein Trace (Negative) H Urine Ketones Trace (Negative) Urine Blood Negative /uL (Negative) Urine Nitrite Negative (Negative) Urine Bilirubin Negative (Negative) Urine Urobilinogen 2 mg/dL (Negative) H Urine Leukocyte Esterase Negative /uL (Negative) Urine RBC <1 /hpf (0 - 4) Urine WBC <1 /hpf (0 - 5) Urine Squamous Epithelial Cells Few /hpf (<5) Urine Bacteria None seen /hpf (None Seen) Urine Mucus Few (None Seen) Urine Glucose Normal mg/dL (Normal) Labs and/or images reviewed: Labs reviewed by me, Image(s) reviewed by me Assessment/Plan Assessment/Plan Acute chest pain rule out acute coronary artery disease: Troponin negative x3, treatment per ACS protocol, aspirin, consult for pulmonary specialist promotions representative Dr. Ruby Zaragoza Congestive heart failure Diabetes: Insulin sliding scale Hypercholesterolemia: Lipitor Hypothyroidism Hypertension History of RI status post PTCA History of peptic ulcer disease Hypothyroidism Time spent 65 minutes Patient is full code Advanced care planning time 20 minutes Plan discussed with: Patient My Orders Orders - JAGUAR LOYA MD Procedure Category Date Status Time * Cardiology Consult CONS 11/08/24 Verified 13:05 Date of Service: Nov 08, 2024 Billing Provider: JAGUAR LOYA MD Common Visit Codes: [id number] CARE 30-74 MIN JAGUAR LOYA MD Nov 08, 2024 13:10
--- NOTE | 2024-11-08 15:09 | DVHINCON2 ---
Date Seen: Nov 08, 2024 Referring Physician Дмитрий Reason for Consultation Chest Pain History of Present Illness 74-year-old female with PMH for CHF, diabetes, NE, PTCA with stent 2005, HLD, spine surgery, paroxysmal atrial fibrillation not on anticoagulation therapy, and HTN presents to the hospital with chest pain. Chest pain noted to be left- sided, tightness and pressure in nature, worsening with touch and palpitation as well as taking in deep breaths, patient states that associated with some left arm as well as left lower leg numbness and tingling. Upon evaluation in the ER patient had troponins negative x3, negative proBNP. EKG reviewed and shows normal sinus rhythm at 79 beats per minute, abnormal T- wave abnormality unchanged from previous EKGs review. Past Medical History HTN CAD HFpEF COPD Spinal stenosis Diabetes HLD Paroxysmal atrial fibrillation? Past Surgical History PTCA with SCAR x2. Family History: Colon cancer G8 FATHER, Grandfather G8 FATHER Colon cancer G8 FATHER, Grandfather G8 FATHER Diabetes mellitus G8 SISTER G8 SISTER G8 FATHER G8 MOTHER Diabetes mellitus G8 SISTER G8 SISTER G8 FATHER G8 MOTHER FH: bladder cancer G8 SISTER FH: brain aneurysm G8 MOTHER, FH: chronic kidney disease G8 SISTER FH: heart attack Grandmother Hypertension G8 SISTER G8 SISTER G8 FATHER G8 MOTHER Hypertension G8 SISTER G8 SISTER G8 FATHER G8 MOTHER Social History Denies alcohol, tobacco, or illicit drug use Allergies: Coded Allergies: Morphine (Verified Allergy, Unknown, 10/11/22) Home Meds Active Scripts Ciprofloxacin-Dexamethasone (Ciprofloxacin/Dexamethaso 0.3-0.1 %) 1 Lety Lety, 1 LETY OT BID for 7 Days, #2 ML 4 drops in left ear twice daily x7 days Prov:OLEG HENDRIX CAREER PROFESSIONAL 07/20/24 Clindamycin Hcl (Clindamycin Hcl) 300 Mg Cap, 1 CAP PO TID for 7 Days, #21 CAP 0 Refills Prov:KATI CHILEL 01/09/24 Docusate Sodium (Docusate Sodium) 100 Mg Cap, 100 MG PO BID for 20 Days, #40 CAP Prov:LEXIE PALAFOX CHILDREN'S LITERATURE PROFESSOR 01/04/24 Cyclobenzaprine HCl (Cyclobenzaprine Hydrochlo) 10 Mg Tab, 10 MG PO TID for 28 Days, #84 TAB take 3 times a day Prov:LEXIE PALAFOX CHILDREN'S LITERATURE PROFESSOR 01/04/24 Ondansetron Odt 4MG Tab (ZOFRAN PO) 4 Mg Tb, 4 MG PO BID for 7 Days, #14 TAB ODT TAB-DISSOLVE IN MOUTH, THEN SWALLOW Prov:BRANDYN DOMINGUEZ MD 04/19/23 Meclizine Hcl (Meclizine Hcl) 25 Mg Tab, 25 MG PO Q8HPRN PRN, #30 TAB 1 Refill Prov:CHANTEL BOYD MD 10/17/22 Ibuprofen (Ibuprofen) 600 Mg Tab, 1 TAB PO TID, #30 TAB Prov:ELIZA PETERS NP 10/11/22 Aspirin (Aspirin Low Dose) 81 Mg Tab, 81 MG PO DAILY for 30 Days, #30 TAB Prov:IQRA QUINONES MD 08/02/22 Reported Medications Levothyroxine Sodium (Levothyroxine Sodium) 100 Mcg Tab, 100 MCG PO QAM for 30 Days, MCG 11/08/24 Atenolol (Atenolol) 25 Mg Tab, 1 TAB PO BID 01/21/24 Estradiol Vaginal (Estradiol) 0.1 Mg/Gm Cre, 0.5 MG VA DAILY Apply 0.5 gram/pea sized amount to labia and vagina daily. 01/21/24 Diclofenac Sodium (Topical) (Voltaren Arthritis Pain) 1 % Gel, 2 GRAMS TOP QID Apply 2 grams topically fours times daily to affected areas. 01/21/24 Hydrocodone-Acetaminophen (Hydrocodone Bitartrate/AC 10-325 mg) 1 Tab Tab, 1 TAB PO TID 12/27/23 Potassium Chloride (Klor-Con M20) 20 Meq Tab, 1 TAB PO BID 04/05/23 Fexofenadine Hcl (Fexofenadine Hcl) 60 Mg Tab, 180 MG PO DAILY for 30 Days, MG 04/05/23 Dicyclomine Hcl (BENTYL CAPSULE) 10 Mg Cp, 1 CAP PO BID, #60 CAP 11 Refills 10/12/22 Spironolactone (Aldactone) 25 Mg Tab, 1 TAB PO DAILY, #90 TAB 1 Refill 10/12/22 Sucralfate (Sucralfate) 1 Gm Tab, 1 GM PO QID, GM 08/01/22 Lactulose (Enulose) 10 Gm/15 Ml Yandy, 10 GM PO DAILY, ML 08/01/22 Metformin Hydrochloride (Metformin Hcl) 500 Mg Tab, 1 TAB PO BID 12/29/21 Ezetimibe (Ezetimibe) 10 Mg Tab, 1 TAB PO DAILY 12/29/21 Cyclosporine (Ophth) (Restasis) 0.05 % Emu, 1 DROP EACHEYE BID, #60 VIAL 3 Refills 06/08/21 Ubrogepant (Ubrelvy) 50 Mg Tab, 50 MG PO DAILYPRN PRN for FOR HEADACHE Take 1 tablet by mouth once. May repeat dose once after 2 hours if needed. 06/08/21 Alendronate Sodium (Fosamax) 70 Mg Tab, 1 TAB PO QWEEKLY, #4 TAB 11 Refills 06/08/21 Gabapentin (Gabapentin) 300 Mg Cap, 300 MG PO DAILY for 30 Days, MG 06/08/21 Ferrous Sulfate (Ferosul) 325 Mg Tab, 325 MG PO DAILY, TAB 06/08/21 Ascorbic Acid (VITAMIN C TABLET) 500 Mg Tb, 1 TAB PO DAILY, #30 TAB 3 Refills 06/08/21 Hydrochlorothiazide (Hydrochlorothiazide) 25 Mg Tab, 25 MG PO DAILY for 30 Days, MG 06/08/21 Levothyroxine Sodium (Levothyroxine Sodium) 100 Mcg Tab, 1 TAB PO QAM 01/21/21 Amlodipine Besylate-Benazepril (AMLODIPINE BESYLATE/BENAZ) 1 Cap Cap, 1 CAP PO DAILY, #30 CAP 5 Refills 01/21/21 Famotidine (Famotidine) 40 Mg Tab, 40 MG PO HS, TAB 04/14/20 Ergocalciferol (VITAMIN D 20444 UNIT) 50,000 [place], [address] UNIT PO QWEEKLY, CAP 50,000 UNIT PO QFRIDAY 04/14/20 Nitroglycerin (NTROSTAT SUBLINGUAL) 0.4 Mg Sl, 0.4 MG SL PRN, TAB *MAY REPEAT EVERY 5 MINUTES X 3 TOTAL IF NO RELIEF, INITIATE ANALGESIC THERAPY. NOTIFY PHYSICIAN *Do not crush. 04/14/20 Furosemide (Lasix) 20 Mg Tb, 1 TAB PO DAILY, #90 TAB 1 Refill 04/14/20 Alprazolam (Xanax) 1 Mg Tab, 1 MG PO TID, TAB 03/09/19 Atorvastatin Calcium (Lipitor) 10 Mg Tab, 1 TAB PO HS, #30 TAB 5 Refills 03/07/19 Current Medications Current Medications Medications (Trade) Dose Ordered Sig/Deborah Route PRN Reason Start Time Stop Time Status Last Admin Aspirin 81 mg DAILY PO 11/08/24 10:00 11/08/24 10:00 Atorvastatin Calcium (Lipitor) 10 mg HS PO 11/08/24 22:00 Levothyroxine Sodium (Synthroid Tablet) 75 mcg QAM@0600 PO 11/08/24 06:00 11/08/24 06:27 Hydralazine HCl (Apresoline Injection) 10 mg Q6HP PRN IV SBP>150 11/08/24 03:30 Diagnostic Test (Pha) (Accu-Chek Comfort Curve T) 1 strip ACHS 11/08/24 07:00 11/08/24 06:45 Insulin Human Regular (InsuLIN R) ACHS SC 11/08/24 07:00 Dextrose 50 ml UD PRN IV Blood Sugar LESS THAN 60 11/08/24 03:30 Sodium Chloride (Saline Lock Ns) 10 ml Q8HR IV 11/08/24 06:00 11/08/24 06:27 Acetaminophen/ Hydrocodone Bitart ([place] 5/325MG Tab) 1 tab Q4HP PRN PO MODERATE PAIN (4-6 PAIN SCALE) 11/08/24 03:30 11/08/24 08:25 Ondansetron HCl (Zofran) 4 mg Q4HP PRN IV NAUSEA / VOMITING 11/08/24 03:30 Docusate Sodium (Colace Capsule) 100 mg BIDPRN PRN PO FOR CONSTIPATION 11/08/24 03:30 Acetaminophen (Tylenol Tablet) 650 mg Q6HP PRN PO PAIN SCALE 1-3 OR TEMP>100.4 11/08/24 03:30 Alprazolam (Xanax Tablet) 0.5 mg Q8HPRN PRN PO ANXIETY 11/08/24 03:30 Nitroglycerin (Ntrostat Sublingual) 0.4 mg Q5MINP PRN SL FOR CHEST PAIN 11/08/24 04:00 Review of Systems Constitutional: No: Fever, Chills, Sweats, Weakness, Malaise, Other Eyes: No: Pain, Vision change, Conjunctivae inflammation, Eyelid inflammation, Other, Redness ENT: No: Ear pain, Ear discharge, Nose pain, Nose discharge, Nose congestion, Mouth pain, Mouth swelling, Throat pain, Throat swelling, Other Respiratory: No: Cough, Dry, Shortness of breath, SOB with exertion, Wheezing, Hemoptysis, Pleuritic Pain, Sputum, Wheezing, Other Cardiovascular: ; No: Palpitations, Orthopnea, Paroxysmal Noc. Dyspnea, Edema, Lt Headedness, Other positive: Chest Pain Gastrointestinal: No: Nausea, Vomiting, Abdominal Pain, Diarrhea, Constipation, Melena, Hematochezia, Other Genitourinary: No Dysuria, No Frequency, No Incontinence, No Hematuria, No Retention, No Other Musculoskeletal: neck pain; No: other, shoulder pain, arm pain, back pain, hand pain, leg pain, foot pain Skin: No: Rash, Lesions, Jaundice, Bruising, Other Neurological: Other (Dizziness, headache.); No: Weakness, Numbness, Incoordination, Change in speech, Confusion, Seizures positive: Left upper and lower extremitynumbness and tingling Vital Signs Vital Signs Date Time Temp Pulse Resp B/P (MAP) Pulse Ox O2 Delivery O2 Flow Rate FiO2 11/08/24 13:00 97.6 58 18 120/74 (89) 98 97.6 11/08/24 11:50 Room Air* 0 21 Physical Exam General appearance: Patient is well-developed, well-nourished, in no acute distress. HEENT: Exam shows: Normocephalic, atraumatic, PERRLA, EOMI Neck: Supple, no bruits Chest: Equal chest excursion bilaterally. Breath sounds normal-no rales or wheezes. Heart: Rhythm: Regular rate; no murmur or gallop Abdomen: Exam shows: Soft, nontender, nondistended Musculoskeletal: No clubbing, no cyanosis, no lower extremity edema Dermatology: Skin warm, moist. Neurological: Exam shows: Alert and oriented x4, normal speech Available prior records, labs, EKG, rhythm strips reviewed and interpreted Labs/Diagnostic Data Labs Test 11/08/24 06:37 11/08/24 04:57 11/08/24 04:00 11/08/24 01:16 Range/Units POC Glucose 89 70-106 mg/dl White Blood Count 4.5 # 4.4-10.8 10^3/uL Red Blood Count 4.27 4.0-5.20 10^6/uL Hemoglobin 12.5 12.2-16.2 g/dL Hematocrit 37.7 36.0-46.0 % Mean Corpuscular Volume 88.4 80.0-100.0 fL Mean Corpuscular Hemoglobin 29.4 28.0-32.0 pg Mean Corpuscular Hemoglobin Concent 33.2 32.0-36.0 g/dL Red Cell Distribution Width 14.6 H 11.8-14.3 % Platelet Count 185 140-450 10^3/uL Mean Platelet Volume 8.5 6.9-10.8 fL Neutrophils (%) (Auto) 37.0-80.0 % Lymphocytes (%) (Auto) 10.0-50.0 % Monocytes (%) (Auto) 0.0-12.0 % Basophils (%) (Auto) 0.0-2.0 % Neutrophils # (Auto) 1.6-8.6 10 ^3/uL Lymphocytes # (Auto) 0.4-5.4 10 ^3/uL Monocytes # (Auto) 0-1.3 10 ^3/uL Differential Total Cells Counted 100.0 100 Neutrophils % (Manual) 29 L 37.0-80.0 Band Neutrophils % (Manual) 0 Lymphocytes % (Manual) 58 H 10.0-50.0 Monocytes % (Manual) 6 0-12 Eosinophils % (Manual) 0 0-7 Basophils % (Manual) 0 0.0-2.0 Metamyelocytes % (manual) 0 Myelocytes % (Manual) 0 Promyelocytes % (Manual) 0 Blast Cells % (Manual) 0 Reactive Lymphocytes 7 Platelet Estimate Adequate Anisocytosis (manual) Slight Ovalocytes Few [place] Cells Few Sodium Level 141 136-145 mmol/L Potassium Level 3.7 3.5-5.1 mmol/L Chloride Level 111 H 98-107 mmol/L Carbon Dioxide Level 24 20-31 mmol/L Anion Gap 6 5-15 Blood Urea Nitrogen 11 9-23 mg/dL Creatinine 0.81 0.550-1.02 mg/dL Glomerular Filtration Rate Calc 77 >90 mL/min BUN/Creatinine Ratio 13.6 10.0-20.0 Serum Glucose 108 H 74-106 mg/dL Calcium Level 9.8 8.7-10.4 mg/dL Total Bilirubin 0.4 0.2-1.0 mg/dL Aspartate Amino Transferase (AST) 13 13-40 U/L Alanine Aminotransferase (ALT) 10 7-40 U/L Alkaline Phosphatase 54 46-116 U/L Total Protein 6.9 5.7-8.2 g/dL Albumin 4.2 3.2-4.8 g/dL Thyroid Stimulating Hormone (TSH) 3.16 0.55-4.78 uIU/mL B-Type Natriuretic Peptide 42.28 0-100 pg/mL Troponin I High Sensitivity < 3 L </=34 ng/L Test 11/08/24 00:28 11/07/24 22:35 Range/Units Urine Color Yellow Yellow Urine Clarity Turbid H Clear Urine pH 5.5 5.0-9.0 Urine Specific [place] 1.030 1.001-1.035 Urine Protein Trace H Negative Urine Ketones Trace Negative Urine Blood Negative Negative /uL Urine Nitrite Negative Negative Urine Bilirubin Negative Negative Urine Urobilinogen 2 H Negative mg/dL Urine Leukocyte Esterase Negative Negative /uL Urine RBC <1 0 - 4 /hpf Urine WBC <1 0 - 5 /hpf Urine Squamous Epithelial Cells Few <5 /hpf Urine Bacteria None seen None Seen /hpf Urine Mucus Few None Seen Urine Glucose Normal Normal mg/dL Eosinophils (%) (Auto) 1.4 0.0-7.0 % Eosinophils # (Auto) 0.1 0-0.8 10 ^3/uL Basophils # (Auto) 0 0-0.2 10 ^3/uL Nucleated Red Blood Cells 0.1 % Assessment Chest pain History of NE, CAD s/p PTCA HTN HLD HFpEF Left upper and lower extremity numbness and tingling Plan/Recommendation * Atypical chest pain, reproducible with palpation and deep breathing. Musculoskeletal in nature. Troponins negative x3. ACS ruled out. Continue on aspirin and statin. EKG negative for acute ischemic changes. Follow up echo. Patient to follow up with her plaster and stucco worker Dr. Knapp outpatient basis for continued workup. * HFpEF - non in exacerbation. Does not seem overloaded. CXR negative for congestion. Follow up echo. * Numbness and tingling to left upper and lower extremity. History of spinal stenosis s/p spinal decompression. Management per primary team. * BP stable continue trending. * Currently sinus on mouse breeder, history of PAF, EKG history reviewed with atrial flutter noted in 2021 though upon review noted to be sinus rhythm. Not on anticoagulation therapy. Continue telemetry monitoring. Follow up with primary plaster and stucco worker as patient was asking about being started on anticoagulation therapy. Recommend outpatient event monitoring. Case Discussed with Dr Zaragoza. There is no further cardiac work-up indicated at this time pending normal echo. Thank you for allowing us to participate in this patient's care. Patient to follow up with her plaster and stucco worker Dr. Ra garcia upon discharge or we will have him take over Sunday if patient is still here. Critical care, time spent: 40 minutes This medical document was created using an electronic medical record system with voice recognition software and computerized dictation system. Although this document has been carefully reviewed, there might still be some phonetic and typographical errors. Occasional wrong-word or ``sound-alike substitutions may have occurred due to the inherent limitations of voice recognition software. These areas are purely typographical due to imperfections of the software programs and do not reflect any compromise in the patient's medical care. Please read the chart carefully and recognize, using context, where these substitutions have occurred. Thank you for allowing me to participate in the management of this patient. The treatment plan was discussed with and agreed upon by patient/family including requesting consultants and ordering of imaging/procedures. Plan discussed with: Patient NYHA Physical activity limitations: NA Date of Service: Nov 08, 2024 Billing Provider: FRANCIE VILA Cardiology Common Codes: [id number] INP/OBS CARE (High), [id number] CARE 30-74 MIN FRANCIE VILA Nov 08, 2024 15:09
--- NOTE | 2024-11-08 19:45 | DVHINCON2 ---
Date Seen: Nov 08, 2024 Referring Physician Дмитрий Reason for Consultation Chest Pain History of Present Illness This is a 74-year-old female with a PMH of CHF, diabetes, [place], PTCA with stent 2005, HLD, spine surgery, paroxysmal atrial fibrillation not on anticoagulation therapy, and HTN who presented to the ED with c/o chest pain. Chest pain noted to be left-sided, tightness and pressure in nature, worsening with touch and palpitation as well as taking in deep breaths, patient states that associated with some left arm as well as left lower leg numbness and tingling. Upon evaluation in the ED patient had troponins negative x3. BNP negative. EKG reviewed and shows normal sinus rhythm at 79 beats per minute, abnormal T-wave abnormality unchanged from previous EKGs review. Chest x-ray showed NAD. Patient was admitted to the hospital. I am asked to consult on this patient. Family History: Colon cancer G8 FATHER, Grandfather G8 FATHER Colon cancer G8 FATHER, Grandfather G8 FATHER Diabetes mellitus G8 SISTER G8 SISTER G8 FATHER G8 MOTHER Diabetes mellitus G8 SISTER G8 SISTER G8 FATHER G8 MOTHER FH: bladder cancer G8 SISTER FH: brain aneurysm G8 MOTHER, FH: chronic kidney disease G8 SISTER FH: heart attack Grandmother Hypertension G8 SISTER G8 SISTER G8 FATHER G8 MOTHER Hypertension G8 SISTER G8 SISTER G8 FATHER G8 MOTHER Allergies: Coded Allergies: Morphine (Verified Allergy, Unknown, 10/11/22) Home Meds Active Scripts Ciprofloxacin-Dexamethasone (Ciprofloxacin/Dexamethaso 0.3-0.1 %) 1 Lety Lety, 1 LETY OT BID for 7 Days, #2 ML 4 drops in left ear twice daily x7 days Prov:OLEG HENDRIX JEWEL SETTER 07/20/24 Clindamycin Hcl (Clindamycin Hcl) 300 Mg Cap, 1 CAP PO TID for 7 Days, #21 CAP 0 Refills Prov:KATI CHILEL 01/09/24 Docusate Sodium (Docusate Sodium) 100 Mg Cap, 100 MG PO BID for 20 Days, #40 CAP Prov:LEXIE PALAFOX CONSULTING SYSTEMS ENGINEER 01/04/24 Cyclobenzaprine HCl (Cyclobenzaprine Hydrochlo) 10 Mg Tab, 10 MG PO TID for 28 Days, #84 TAB take 3 times a day Prov:LEXIE PALAFOX NP 01/04/24 Ondansetron Odt 4MG Tab (ZOFRAN PO) 4 Mg Tb, 4 MG PO BID for 7 Days, #14 TAB ODT TAB-DISSOLVE IN MOUTH, THEN SWALLOW Prov:BRANDYN DOMINGUEZ MD 04/19/23 Meclizine Hcl (Meclizine Hcl) 25 Mg Tab, 25 MG PO Q8HPRN PRN, #30 TAB 1 Refill Prov:CHANTEL BOYD MD 10/17/22 Ibuprofen (Ibuprofen) 600 Mg Tab, 1 TAB PO TID, #30 TAB Prov:ELIZA PETERS NP 10/11/22 Aspirin (Aspirin Low Dose) 81 Mg Tab, 81 MG PO DAILY for 30 Days, #30 TAB Prov:IQRA QUINONES MD 08/02/22 Reported Medications Levothyroxine Sodium (Levothyroxine Sodium) 100 Mcg Tab, 100 MCG PO QAM for 30 Days, MCG 11/08/24 Atenolol (Atenolol) 25 Mg Tab, 1 TAB PO BID 01/21/24 Estradiol Vaginal (Estradiol) 0.1 Mg/Gm Cre, 0.5 MG VA DAILY Apply 0.5 gram/pea sized amount to labia and vagina daily. 01/21/24 Diclofenac Sodium (Topical) (Voltaren Arthritis Pain) 1 % Gel, 2 GRAMS TOP QID Apply 2 grams topically fours times daily to affected areas. 01/21/24 Hydrocodone-Acetaminophen (Hydrocodone Bitartrate/AC 10-325 mg) 1 Tab Tab, 1 TAB PO TID 12/27/23 Potassium Chloride (Klor-Con M20) 20 Meq Tab, 1 TAB PO BID 04/05/23 Fexofenadine Hcl (Fexofenadine Hcl) 60 Mg Tab, 180 MG PO DAILY for 30 Days, MG 04/05/23 Dicyclomine Hcl (BENTYL CAPSULE) 10 Mg Cp, 1 CAP PO BID, #60 CAP 11 Refills 10/12/22 Spironolactone (Aldactone) 25 Mg Tab, 1 TAB PO DAILY, #90 TAB 1 Refill 10/12/22 Sucralfate (Sucralfate) 1 Gm Tab, 1 GM PO QID, GM 08/01/22 Lactulose (Enulose) 10 Gm/15 Ml Yandy, 10 GM PO DAILY, ML 08/01/22 Metformin Hydrochloride (Metformin Hcl) 500 Mg Tab, 1 TAB PO BID 12/29/21 Ezetimibe (Ezetimibe) 10 Mg Tab, 1 TAB PO DAILY 12/29/21 Cyclosporine (Ophth) (Restasis) 0.05 % Emu, 1 DROP EACHEYE BID, #60 VIAL 3 Refills 06/08/21 Ubrogepant (Ubrelvy) 50 Mg Tab, 50 MG PO DAILYPRN PRN for FOR HEADACHE Take 1 tablet by mouth once. May repeat dose once after 2 hours if needed. 06/08/21 Alendronate Sodium (Fosamax) 70 Mg Tab, 1 TAB PO QWEEKLY, #4 TAB 11 Refills 06/08/21 Gabapentin (Gabapentin) 300 Mg Cap, 300 MG PO DAILY for 30 Days, MG 06/08/21 Ferrous Sulfate (Ferosul) 325 Mg Tab, 325 MG PO DAILY, TAB 06/08/21 Ascorbic Acid (VITAMIN C TABLET) 500 Mg Tb, 1 TAB PO DAILY, #30 TAB 3 Refills 06/08/21 Hydrochlorothiazide (Hydrochlorothiazide) 25 Mg Tab, 25 MG PO DAILY for 30 Days, MG 06/08/21 Levothyroxine Sodium (Levothyroxine Sodium) 100 Mcg Tab, 1 TAB PO QAM 01/21/21 Amlodipine Besylate-Benazepril (AMLODIPINE BESYLATE/BENAZ) 1 Cap Cap, 1 CAP PO DAILY, #30 CAP 5 Refills 01/21/21 Famotidine (Famotidine) 40 Mg Tab, 40 MG PO HS, TAB 04/14/20 Ergocalciferol (VITAMIN D 26809 UNIT) 50,000 [place], [address] UNIT PO QWEEKLY, CAP 50,000 UNIT PO QFRIDAY 04/14/20 Nitroglycerin (NTROSTAT SUBLINGUAL) 0.4 Mg Sl, 0.4 MG SL PRN, TAB *MAY REPEAT EVERY 5 MINUTES X 3 TOTAL IF NO RELIEF, INITIATE ANALGESIC THERAPY. NOTIFY PHYSICIAN *Do not crush. 04/14/20 Furosemide (Lasix) 20 Mg Tb, 1 TAB PO DAILY, #90 TAB 1 Refill 04/14/20 Alprazolam (Xanax) 1 Mg Tab, 1 MG PO TID, TAB 03/09/19 Atorvastatin Calcium (Lipitor) 10 Mg Tab, 1 TAB PO HS, #30 TAB 5 Refills 03/07/19 Current Medications Current Medications Medications (Trade) Dose Ordered Sig/Deborah Route PRN Reason Start Time Stop Time Status Last Admin Aspirin 81 mg DAILY PO 11/08/24 10:00 11/08/24 10:00 Atorvastatin Calcium (Lipitor) 10 mg HS PO 11/08/24 22:00 Levothyroxine Sodium (Synthroid Tablet) 75 mcg QAM@0600 PO 11/08/24 06:00 11/08/24 06:27 Hydralazine HCl (Apresoline Injection) 10 mg Q6HP PRN IV SBP>150 11/08/24 03:30 Diagnostic Test (Pha) (Accu-Chek Comfort Curve T) 1 strip ACHS 11/08/24 07:00 11/08/24 06:45 Insulin Human Regular (InsuLIN R) ACHS SC 11/08/24 07:00 Dextrose 50 ml UD PRN IV Blood Sugar LESS THAN 60 11/08/24 03:30 Sodium Chloride (Saline Lock Ns) 10 ml Q8HR IV 11/08/24 06:00 11/08/24 14:51 Acetaminophen/ Hydrocodone Bitart ([place] 5/325MG Tab) 1 tab Q4HP PRN PO MODERATE PAIN (4-6 PAIN SCALE) 11/08/24 03:30 11/08/24 08:25 Ondansetron HCl (Zofran) 4 mg Q4HP PRN IV NAUSEA / VOMITING 11/08/24 03:30 Docusate Sodium (Colace Capsule) 100 mg BIDPRN PRN PO FOR CONSTIPATION 11/08/24 03:30 Acetaminophen (Tylenol Tablet) 650 mg Q6HP PRN PO PAIN SCALE 1-3 OR TEMP>100.4 11/08/24 03:30 Alprazolam (Xanax Tablet) 0.5 mg Q8HPRN PRN PO ANXIETY 11/08/24 03:30 Nitroglycerin (Ntrostat Sublingual) 0.4 mg Q5MINP PRN SL FOR CHEST PAIN 11/08/24 04:00 Review of Systems Constitutional: No: Fever, Chills, Sweats, Weakness, Malaise, Other Eyes: No: Pain, Vision change, Conjunctivae inflammation, Eyelid inflammation, Other, Redness ENT: No: Ear pain, Ear discharge, Nose pain, Nose discharge, Nose congestion, Mouth pain, Mouth swelling, Throat pain, Throat swelling, Other Respiratory: No: Cough, Dry, Shortness of breath, SOB with exertion, Wheezing, Hemoptysis, Pleuritic Pain, Sputum, Wheezing, Other Cardiovascular: ; No: Palpitations, Orthopnea, Paroxysmal Noc. Dyspnea, Edema, Lt Headedness, Other positive: Chest Pain Gastrointestinal: No: Nausea, Vomiting, Abdominal Pain, Diarrhea, Constipation, Melena, Hematochezia, Other Genitourinary: No Dysuria, No Frequency, No Incontinence, No Hematuria, No Retention, No Other Musculoskeletal: neck pain; No: other, shoulder pain, arm pain, back pain, hand pain, leg pain, foot pain Skin: No: Rash, Lesions, Jaundice, Bruising, Other Neurological: Other (Dizziness, headache.); No: Weakness, Numbness, Incoordination, Change in speech, Confusion, Seizures positive: Left upper and lower extremity numbness and tingling Vital Signs Vital Signs Date Time Temp Pulse Resp B/P (MAP) Pulse Ox O2 Delivery O2 Flow Rate FiO2 11/08/24 17:12 97.5 66 19 104/80 (88) 100 97.5 11/08/24 11:50 Room Air* 0 21 Physical Exam GENERAL: Awake, alert, oriented. LUNGS: Clear. CARDIOVASCULAR: Heart sounds are good. ABDOMEN: Soft. Labs/Diagnostic Data Labs Test 11/08/24 06:37 11/08/24 04:57 11/08/24 04:00 11/08/24 01:16 Range/Units POC Glucose 89 70-106 mg/dl White Blood Count 4.5 # 4.4-10.8 10^3/uL Red Blood Count 4.27 4.0-5.20 10^6/uL Hemoglobin 12.5 12.2-16.2 g/dL Hematocrit 37.7 36.0-46.0 % Mean Corpuscular Volume 88.4 80.0-100.0 fL Mean Corpuscular Hemoglobin 29.4 28.0-32.0 pg Mean Corpuscular Hemoglobin Concent 33.2 32.0-36.0 g/dL Red Cell Distribution Width 14.6 H 11.8-14.3 % Platelet Count 185 140-450 10^3/uL Mean Platelet Volume 8.5 6.9-10.8 fL Neutrophils (%) (Auto) 37.0-80.0 % Lymphocytes (%) (Auto) 10.0-50.0 % Monocytes (%) (Auto) 0.0-12.0 % Basophils (%) (Auto) 0.0-2.0 % Neutrophils # (Auto) 1.6-8.6 10 ^3/uL Lymphocytes # (Auto) 0.4-5.4 10 ^3/uL Monocytes # (Auto) 0-1.3 10 ^3/uL Differential Total Cells Counted 100.0 100 Neutrophils % (Manual) 29 L 37.0-80.0 Band Neutrophils % (Manual) 0 Lymphocytes % (Manual) 58 H 10.0-50.0 Monocytes % (Manual) 6 0-12 Eosinophils % (Manual) 0 0-7 Basophils % (Manual) 0 0.0-2.0 Metamyelocytes % (manual) 0 Myelocytes % (Manual) 0 Promyelocytes % (Manual) 0 Blast Cells % (Manual) 0 Reactive Lymphocytes 7 Platelet Estimate Adequate Anisocytosis (manual) Slight Ovalocytes Few Dylan Cells Few Sodium Level 141 136-145 mmol/L Potassium Level 3.7 3.5-5.1 mmol/L Chloride Level 111 H 98-107 mmol/L Carbon Dioxide Level 24 20-31 mmol/L Anion Gap 6 5-15 Blood Urea Nitrogen 11 9-23 mg/dL Creatinine 0.81 0.550-1.02 mg/dL Glomerular Filtration Rate Calc 77 >90 mL/min BUN/Creatinine Ratio 13.6 10.0-20.0 Serum Glucose 108 H 74-106 mg/dL Calcium Level 9.8 8.7-10.4 mg/dL Total Bilirubin 0.4 0.2-1.0 mg/dL Aspartate Amino Transferase (AST) 13 13-40 U/L Alanine Aminotransferase (ALT) 10 7-40 U/L Alkaline Phosphatase 54 46-116 U/L Total Protein 6.9 5.7-8.2 g/dL Albumin 4.2 3.2-4.8 g/dL Thyroid Stimulating Hormone (TSH) 3.16 0.55-4.78 uIU/mL B-Type Natriuretic Peptide 42.28 0-100 pg/mL Troponin I High Sensitivity < 3 L </=34 ng/L Test 11/08/24 00:28 11/07/24 22:35 Range/Units Urine Color Yellow Yellow Urine Clarity Turbid H Clear Urine pH 5.5 5.0-9.0 Urine Specific [place] 1.030 1.001-1.035 Urine Protein Trace H Negative Urine Ketones Trace Negative Urine Blood Negative Negative /uL Urine Nitrite Negative Negative Urine Bilirubin Negative Negative Urine Urobilinogen 2 H Negative mg/dL Urine Leukocyte Esterase Negative Negative /uL Urine RBC <1 0 - 4 /hpf Urine WBC <1 0 - 5 /hpf Urine Squamous Epithelial Cells Few <5 /hpf Urine Bacteria None seen None Seen /hpf Urine Mucus Few None Seen Urine Glucose Normal Normal mg/dL Eosinophils (%) (Auto) 1.4 0.0-7.0 % Eosinophils # (Auto) 0.1 0-0.8 10 ^3/uL Basophils # (Auto) 0 0-0.2 10 ^3/uL Nucleated Red Blood Cells 0.1 % Assessment Chest pain. History of [place], CAD s/p PTCA. HTN. HLD. HFpEF. Left upper and lower extremity numbness and tingling. Plan/Recommendation I agree with your ongoing assessment and care of plan. Patient has been seen by Sumit Mckeon NP on my behalf, him and I discussed the plan with the patient. Continue on aspirin and statin. EKG negative for acute ischemic changes. Follow up echo. Patient to follow up with her enterostomal nurse Dr. Knapp outpatient basis for continued workup. Management per primary team. BP stable continue trending. 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 Not on anticoagulation therapy. Continue telemetry monitoring. Follow up with primary enterostomal nurse as patient was asking about being started on anticoagulation therapy. Recommend outpatient event monitoring. Additional plan as per the hospital course. Plan discussed with: Patient NYHA Physical activity limitations: NA Date of Service: Nov 08, 2024 Billing Provider: JACK VAZQUEZ MD Cardiology Common Codes: [id number] CARE 30-74 MIN JACK VAZQUEZ MD Nov 08, 2024 17:24
--- NOTE | 2024-11-08 21:43 | DVHSR ---
APPROVED REPORT EXAM: Two-dimensional and M-mode echocardiogram with Doppler and color Doppler. Blood Pressure: 120/74 mmHg INDICATION Chest Pain Hx CHF RISK FACTORS Height: 5'7", Weight: 150 DIMENSIONS LVDd4.1 (3.8-5.7cm)LA (2D)3.5 (1.9-4.0cm)Aortic Root3.5 (2.0-3.7cm) LVDs2.8 (2.5-4.0cm)LA (MM) (1.9-4.0cm)Aortic Cusp Exc1.9 (1.5-2.0cm) EF (%) 60.0 (55-70%)Rt. Atrium3.9 (1.9-4.0cm)Asc. Aorta cm IVSd1.1 (0.7-1.1cm)RV (D)3.8 (1.8-2.4cm) PWd0.8 (0.7-1.1cm) Mitral Valve MitralMitral Stenosis E wave0.73m/sMV Mean GR.mmHg A wave0.99m/sMV Peak GR.mmHg E/A ratio0.72D MVAcm2 DECEL [id number] 1/2 [place] Aortic Valve Aortic ValveAortic Stenosis V10.93m/[place] Mean GR.3mmHg V21.20m/[place] Peak GR.6mmHg LVOT Diameter2.0 (1.8-2.4cm)Doppler AVA2.43cm2 Pulmonic Valve V20.59m/s Tricuspid Valve TR Velocity2.37m/s [id number] Conclusion LV EJECTION FRACTION IS 70% NORMAL VALVES NO EFFUSION NORMAL RV FUNCTION NORMAL RVSP AND IS 31 MM OF HG
[2024-11-08] MEDS: ATORVASTATIN 20 MG TAB PO SCH (21:46)
[2024-11-09 01:00] VITALS: BP 116/66; PULSE 60; RESP 20; TEMP 97.9; O2SAT 96
[2024-11-09 05:00] VITALS: BP 125/75; PULSE 78; RESP 22; TEMP 98; O2SAT 96
[2024-11-09 08:00] VITALS: PULSE 76; RESP 18
[2024-11-09 09:00] VITALS: BP 120/85; PULSE 76; RESP 18; TEMP 98.3; O2SAT 100
--- NOTE | 2024-11-09 09:11 | DVHPN2 ---
Reviewed: Care Plan, H&P, Labs, Medications, Previous Orders, Radiology Changes from previous H/P or p: No Changes Eyes: No Pain, No Vision change, No Conjunctivae inflammation, No Eyelid inflammation, No Other, No Redness ENT: No Ear pain, No Ear discharge, No Nose pain, No Nose discharge, No Nose congestion, No Mouth pain, No Mouth swelling, No Throat pain, No Throat swelling, No Other Cardiovascular: Chest Pain; No Palpitations, No Orthopnea, No Paroxysmal Noc. Dyspnea, No Edema, No Lt Headedness, No Other Respiratory: No Cough, No Dry, No Shortness of breath, No SOB with excertion, No Wheezing, No Hemoptysis, No Pleuritic Pain, No Sputum, No Other Gastrointestinal: No Nausea, No Vomiting, No Abdominal Pain, No Diarrhea, No Constipation, No Melena, No Hematochezia, No Other Genitourinary: No Dysuria, No Frequency, No Incontinence, No Hematuria, No Retention, No Other Musculoskeletal: No other, No neck pain, No shoulder pain, No arm pain, No back pain, No hand pain, No leg pain, No foot pain Skin: No Rash, No Lesions, No Jaundice, No Bruising, No Other Objective Vitals Vital Signs Date Time Temp Pulse Resp B/P (MAP) Pulse Ox O2 Delivery O2 Flow Rate FiO2 11/09/24 08:00 18 Room Air* 0 21 11/09/24 08:00 76 11/09/24 05:00 98.0 125/75 (92) 96 98.0 Intake/Output Intake and Output 11/09/24 07:00 Intake Total 600 ml Output Total 300 ml Balance 300 ml Intake Oral 600 ml Output Urine Total 300 ml # Voids 1 Medications Current Medications Medications Dose Ordered Sig/Deborah Route Start Time Stop Time Status Last Admin Dose Admin Aspirin 81 mg DAILY PO 11/08/24 10:00 11/08/24 10:00 81 MG Atorvastatin Calcium 10 mg HS PO 11/08/24 22:00 11/08/24 21:46 10 MG Levothyroxine Sodium 75 mcg QAM@0600 PO 11/08/24 06:00 11/09/24 06:01 75 MCG Hydralazine HCl 10 mg Q6HP PRN IV 11/08/24 03:30 Diagnostic Test (Pha) 1 strip ACHS 11/08/24 07:00 11/09/24 06:04 1 STRIP Insulin Human Regular ACHS SC 11/08/24 07:00 Dextrose 50 ml UD PRN IV 11/08/24 03:30 Sodium Chloride 10 ml Q8HR IV 11/08/24 06:00 11/09/24 06:03 10 ML Acetaminophen/ Hydrocodone Bitart 1 tab Q4HP PRN PO 11/08/24 03:30 11/09/24 06:01 1 TAB Ondansetron HCl 4 mg Q4HP PRN IV 11/08/24 03:30 Docusate Sodium 100 mg BIDPRN PRN PO 11/08/24 03:30 Acetaminophen 650 mg Q6HP PRN PO 11/08/24 03:30 Alprazolam 0.5 mg Q8HPRN PRN PO 11/08/24 03:30 Nitroglycerin 0.4 mg Q5MINP PRN SL 11/08/24 04:00 Laboratory Results Laboratory Tests 11/08/24 04:57 Urinalysis Test 11/08/24 00:28 Urine Color Yellow (Yellow) Urine Clarity Turbid (Clear) H Urine pH 5.5 (5.0-9.0) Urine Specific [place] 1.030 (1.001-1.035) Urine Protein Trace (Negative) H Urine Ketones Trace (Negative) Urine Blood Negative /uL (Negative) Urine Nitrite Negative (Negative) Urine Bilirubin Negative (Negative) Urine Urobilinogen 2 mg/dL (Negative) H Urine Leukocyte Esterase Negative /uL (Negative) Urine RBC <1 /hpf (0 - 4) Urine WBC <1 /hpf (0 - 5) Urine Squamous Epithelial Cells Few /hpf (<5) Urine Bacteria None seen /hpf (None Seen) Urine Mucus Few (None Seen) Urine Glucose Normal mg/dL (Normal) Labs and/or images reviewed: Labs reviewed by me, Image(s) reviewed by me Assessment/Plan Assessment/Plan Acute noncardiac chest pain Troponin negative x3, treatment per ACS protocol, aspirin, consult for steel turner supervisor functional testing Dr. Ruby Zaragoza appreciated advised outpatient follow up with the patient's steel turner Dr. Knapp Congestive heart failure Diabetes: Insulin sliding scale Hypercholesterolemia: Lipitor Hypothyroidism Hypertension History of [place] status post PTCA History of peptic ulcer disease Hypothyroidism Time spent 55 minutes Patient is full code Plan discussed with: Patient My Orders Orders - JAGUAR LOYA MD Procedure Category Date Status Time * Cardiology Consult CONS 11/08/24 Transmitted 13:05 Date of Service: Nov 09, 2024 Billing Provider: JAGUAR LOYA MD Common Visit Codes: [id number] INP/OBS CARE(HIGH) JAGUAR LOYA MD Nov 09, 2024 09:11
--- NOTE | 2024-11-09 09:15 | DVHDS2 ---
Discharge Summary Date of Admission Nov 08, 2024 at 03:55 Date of Discharge: Nov 09, 2024 Admitting Diagnosis Chest pain Wounds: None Labs/Diagnostic Data: Laboratory Results Test 11/08/24 20:45 11/08/24 04:57 11/08/24 04:00 11/08/24 01:16 POC Glucose 131 mg/dl (70-106) White Blood Count 4.5 10^3/uL (4.4-10.8) Red Blood Count 4.27 10^6/uL (4.0-5.20) Hemoglobin 12.5 g/dL (12.2-16.2) Hematocrit 37.7 % (36.0-46.0) Mean Corpuscular Volume 88.4 fL (80.0-100.0) Mean Corpuscular Hemoglobin 29.4 pg (28.0-32.0) Mean Corpuscular Hemoglobin Concent 33.2 g/dL (32.0-36.0) Red Cell Distribution Width 14.6 % (11.8-14.3) Platelet Count 185 10^3/uL (140-450) Mean Platelet Volume 8.5 fL (6.9-10.8) Neutrophils (%) (Auto) % (37.0-80.0) Lymphocytes (%) (Auto) % (10.0-50.0) Monocytes (%) (Auto) % (0.0-12.0) Basophils (%) (Auto) % (0.0-2.0) Neutrophils # (Auto) 10 ^3/uL (1.6-8.6) Lymphocytes # (Auto) 10 ^3/uL (0.4-5.4) Monocytes # (Auto) 10 ^3/uL (0-1.3) Differential Total Cells Counted 100.0 (100) Neutrophils % (Manual) 29 (37.0-80.0) Band Neutrophils % (Manual) 0 Lymphocytes % (Manual) 58 (10.0-50.0) Monocytes % (Manual) 6 (0-12) Eosinophils % (Manual) 0 (0-7) Basophils % (Manual) 0 (0.0-2.0) Metamyelocytes % (manual) 0 Myelocytes % (Manual) 0 Promyelocytes % (Manual) 0 Blast Cells % (Manual) 0 Reactive Lymphocytes 7 Platelet Estimate Adequate Anisocytosis (manual) Slight Ovalocytes Few [place] Cells Few Sodium Level 141 mmol/L (136-145) Potassium Level 3.7 mmol/L (3.5-5.1) Chloride Level 111 mmol/L (98-107) Carbon Dioxide Level 24 mmol/L (20-31) Anion Gap 6 (5-15) Blood Urea Nitrogen 11 mg/dL (9-23) Creatinine 0.81 mg/dL (0.550-1.02) Glomerular Filtration Rate Calc 77 mL/min (>90) BUN/Creatinine Ratio 13.6 (10.0-20.0) Serum Glucose 108 mg/dL (74-106) Calcium Level 9.8 mg/dL (8.7-10.4) Total Bilirubin 0.4 mg/dL (0.2-1.0) Aspartate Amino Transferase (AST) 13 U/L (13-40) Alanine Aminotransferase (ALT) 10 U/L (7-40) Alkaline Phosphatase 54 U/L (46-116) Total Protein 6.9 g/dL (5.7-8.2) Albumin 4.2 g/dL (3.2-4.8) Thyroid Stimulating Hormone (TSH) 3.16 uIU/mL (0.55-4.78) B-Type Natriuretic Peptide 42.28 pg/mL (0-100) Troponin I High Sensitivity < 3 ng/L (</=34) Test 11/08/24 00:28 11/07/24 22:35 Urine Color Yellow (Yellow) Urine Clarity Turbid (Clear) Urine pH 5.5 (5.0-9.0) Urine Specific [place] 1.030 (1.001-1.035) Urine Protein Trace (Negative) Urine Ketones Trace (Negative) Urine Blood Negative /uL (Negative) Urine Nitrite Negative (Negative) Urine Bilirubin Negative (Negative) Urine Urobilinogen 2 mg/dL (Negative) Urine Leukocyte Esterase Negative /uL (Negative) Urine RBC <1 /hpf (0 - 4) Urine WBC <1 /hpf (0 - 5) Urine Squamous Epithelial Cells Few /hpf (<5) Urine Bacteria None seen /hpf (None Seen) Urine Mucus Few (None Seen) Urine Glucose Normal mg/dL (Normal) Eosinophils (%) (Auto) 1.4 % (0.0-7.0) Eosinophils # (Auto) 0.1 10 ^3/uL (0-0.8) Basophils # (Auto) 0 10 ^3/uL (0-0.2) Nucleated Red Blood Cells 0.1 % Other Laboratory Tests 11/08/24 04:57 Brief Hx & Hospital Course: 74-year-old female with a history of diabetes hypertension hypercholesterolemia hypothyroidism history of [place] status post stents history of peptic ulcer disease hypothyroidism congestive heart failure came in for chest pain troponin negative x3 echo 55 percent ejection fraction seen by Cardiology Dr. Zaragoza no further cardiac workup found to have be noncardiac chest pain advised to follow up with the patient's primary software sales manager Dr. Knapp in 3-4 days Consults/Reason for consult Cardiology Dr. Ruby Zaragoza Operations or Procedures Echocardiogram Condition at Discharge: Fair Final Diagnosis/Problems List Acute noncardiac chest pain Troponin negative x3, treatment per ACS protocol, aspirin, consult for software sales manager information technology specialist Dr. Ruby Zaragoza appreciated advised outpatient follow up with the patient's software sales manager Dr. Knapp Congestive heart failure Diabetes: Insulin sliding scale Hypercholesterolemia: Lipitor Hypothyroidism Hypertension History of [place] status post PTCA History of peptic ulcer disease Hypothyroidism Discharge Disposition: Home Discharge Instruct/Medications Diet: Cardiac 2g Na,low cholest Activity: Light activity Follow Up/Referral: Follow up with your primary Dr Dr. Loo Follow up with the software sales manager Dr. Knapp in 3-4 days Return to ER if symptoms worsen Medications: No new medications Reviewed all previous home medications 35 (Time taken for discharge summary 35 mts) Discharge Statement: "Patient was advised to return to the ER or call 911 if any headaches, dizziness, shortness of breath, chest pain, abdominal pain, bleeding, fevers, or worsening of medical condition. Patient was counseled about treatment plan, medications, possible side effects, patientverbalized understanding. All questions were answered to the best of my ability. This discharge took greater then 30 minutes in planning, reviewing documentation, counseling the patient, and discussing with other team members." ASSESSMENT ASSESSMENT Hospital Course Uneventful Assessment Acute noncardiac chest pain Troponin negative x3, treatment per ACS protocol, aspirin, consult for software sales manager information technology specialist Dr. Ruby Zaragoza appreciated advised outpatient follow up with the patient's software sales manager Dr. Knapp Congestive heart failure Diabetes: Insulin sliding scale Hypercholesterolemia: Lipitor Hypothyroidism Hypertension History of [place] status post PTCA History of peptic ulcer disease Hypothyroidism Date of Service: Nov 09, 2024 Billing Provider: JAGUAR LOYA MD Common Visit Codes: [id number] DISCH DAY >30min JAGUAR LOYA MD Nov 09, 2024 09:15
[2024-11-09 10:02] VITALS: BP 112/70
--- NOTE | 2024-11-09 16:01 | DVHPN2 ---
Progress Note - Dictate Date Seen: Nov 09, 2024 Medical Necessity Reason Pt with a Central, PICC or Fol: No Subjective Patient was seen and evaluated in follow up. No overnight events. Echocardiogram showed an EF of 70%. Advised patient for outpatient follow up with his ramp attendant Dr. Knapp. Telemetry reviewed. vital signs Vital Sign Date Time Temp Pulse Resp B/P (MAP) Pulse Ox O2 Delivery O2 Flow Rate FiO2 11/09/24 09:00 98.3 76 18 120/85 (97) 100 98.3 11/09/24 08:00 Room Air* 0 21 Total Intake and Output 11/08/24 11/08/24 11/09/24 15:00 23:00 07:00 Intake Total 600 ml Output Total 300 ml Balance 300 ml objective GENERAL: Awake, alert, oriented. LUNGS: Clear. CARDIOVASCULAR: Heart sounds are good. ABDOMEN: Soft. laboratory and microbiology Laboratory Tests 11/08/24 04:57 Test 11/08/24 04:57 Range/Units Serum Glucose 108 H 74-106 mg/dL Problem List Chest pain. History of [place], CAD s/p PTCA. HTN. HLD. HFpEF. Left upper and lower extremity numbness and tingling. Assessment/Plan Continued all current supportive medical care. Aspirin, Lipitor. Nitro SL. [place] for pain management. Additional plan as per the hospital course. Plan discussed with: Patient JACK VAZQUEZ MD Nov 09, 2024 15:50
--- NOTE | 2024-11-10 11:15 | ECG ---
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
--- NOTE | 2024-11-10 11:15 | ECG ---
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
== END 2024-11-09 11:45 | disposition home or self-care (01) | DRG 206 ==
LOC: EDBD 22:16 → ER 22:16 → TELE 11-08 03:55 → TELE-CENTR 11-08 11:36
PROVIDERS: ADMIT Nurse Practitioner Family; ATTEND Nurse Practitioner Family
DX: M94.0 Chondrocostal junction syndrome [Tietze] (principal); I50.32 Chronic diastolic (congestive) heart failure; I11.0 Hypertensive heart disease with heart failure; E11.9 Type 2 diabetes mellitus without complications; I25.10 Atherosclerotic heart disease of native coronary artery without angina pectoris; J44.9 Chronic obstructive pulmonary disease, unspecified; E78.00 Pure hypercholesterolemia, unspecified; E03.9 Hypothyroidism, unspecified; I48.0 Paroxysmal atrial fibrillation; Z88.5 Allergy status to narcotic agent; Z90.710 Acquired absence of both cervix and uterus; Z95.5 Presence of coronary angioplasty implant and graft; Z87.11 Personal history of peptic ulcer disease; I25.2 Old myocardial infarction; Z80.0 Family history of malignant neoplasm of digestive organs; Z83.3 Family history of diabetes mellitus; Z80.52 Family history of malignant neoplasm of bladder; Z82.49 Family history of ischemic heart disease and other diseases of the circulatory system
CPT/HCPCS: 36415; 71045; 80053; 81001; 82962; 83880; 84443; 84484; 85007; 85025; 85027; 93005; 93306; G0378

== ENCOUNTER → 2024-12-11 | Outpatient (CLI) | payer MEDICARE, OTHER ==
[2024-12-11 07:58] LABS: Albumin 4.5 g/dL (3.2-4.8); Alkaline Phosphatase 59 U/L (46-116); Anion Gap 8 (5-15); BUN/Creatinine Ratio 13.7 (10.0-20.0); Blood Urea Nitrogen 16 mg/dL (9-23); Calcium 10.1 mg/dL (8.7-10.4); Carbon Dioxide 25 mmol/L (20-31); Glucose 91 mg/dL (74-106); Potassium 3.8 mmol/L (3.5-5.1); Sodium 142 mmol/L (136-145)
[2024-12-11 08:00] LABS: Alanine Aminotransferase < 9 U/L (7-40); Aspartate Aminotransferase 10 U/L (13-40); Chloride 109 mmol/L (98-107)
[2024-12-11 08:05] LABS: Creatinine, Urine 95.33 mg/dL (30.0-125.0)
[2024-12-11 08:09] LABS: Bilirubin, Total 0.6 mg/dL (0.2-1.0)
[2024-12-11 08:20] LABS: Micro Albumin < 3.0 mg/L (<30.0)
== END | disposition home or self-care (01) ==
LOC: LAB 07:09
PROVIDERS: ATTEND Internal Medicine
DX: E11.22 Type 2 diabetes mellitus with diabetic chronic kidney disease (principal); N18.9 Chronic kidney disease, unspecified; E03.9 Hypothyroidism, unspecified; E78.5 Hyperlipidemia, unspecified
CPT/HCPCS: 36415; 80053; 82043; 82570; 83036; 84443

== ENCOUNTER → 2025-01-07 | Outpatient (CLI) | payer MEDICARE, OTHER ==
[2025-01-07 09:42] LABS: Calcium 9.6 mg/dL (8.7-10.4); Potassium 3.7 mmol/L (3.5-5.1); Sodium 143 mmol/L (136-145)
[2025-01-07 09:43] LABS: Anion Gap 9 (5-15); Carbon Dioxide 26 mmol/L (20-31)
[2025-01-07 09:48] LABS: Glucose 95 mg/dL (74-106)
[2025-01-07 09:49] LABS: BUN/Creatinine Ratio 16.8 (10.0-20.0); Blood Urea Nitrogen 18 mg/dL (9-23)
[2025-01-07 10:27] LABS: Chloride 108 mmol/L (98-107)
== END | disposition home or self-care (01) ==
LOC: LAB 09:05
PROVIDERS: ATTEND Internal Medicine
DX: E11.9 Type 2 diabetes mellitus without complications (principal)
CPT/HCPCS: 36415; 80048

== ENCOUNTER → 2025-01-26 | Outpatient (CLI) | payer MEDICARE, OTHER ==
[~2025-01-26] MED LIST changes: -ATOR10TA PO; +ATOR20TA50 PO; -CIPR1SUS8 OT; -CLIN1CAP70 PO; -CYCL-611 PO; -LEVO100T8 PO; +LEVO112T4 PO; +LEVO500T91 PO; +METR-344 PO
[2025-01-26 13:43] LABS: Hematocrit 38.4 % (36.0-46.0); Hemoglobin 12.7 g/dL (12.2-16.2); Mean Corpuscular Hemoglobin 29.2 pg (28.0-32.0); Mean Corpuscular Volume 88.3 fL (80.0-100.0); Platelet Count (auto) 209 10^3/uL (140-450); Red Blood Cells 4.35 10^6/uL (4.0-5.20); Red Cell Distribution Width 15.2 % (11.8-14.3); White Blood Cell 4.1 10^3/uL (4.4-10.8)
[2025-01-26 14:01] LABS: Alanine Aminotransferase 10 U/L (7-40); Albumin 4.6 g/dL (3.2-4.8); Alkaline Phosphatase 49 U/L (46-116); Anion Gap 4 (5-15); BUN/Creatinine Ratio 19.4 (10.0-20.0); Bilirubin, Total 0.5 mg/dL (0.2-1.0); Blood Urea Nitrogen 18 mg/dL (9-23); Calcium 9.8 mg/dL (8.7-10.4); Carbon Dioxide 27 mmol/L (20-31); Glucose 92 mg/dL (74-106); Potassium 4.5 mmol/L (3.5-5.1); Sodium 141 mmol/L (136-145); Total Protein 7.3 g/dL (5.7-8.2)
[2025-01-26 14:03] LABS: Aspartate Aminotransferase 11 U/L (13-40); Chloride 110 mmol/L (98-107)
[2025-01-26 14:04] LABS: Band Neutrophils % (manual) 0; Basophils % (manual) 0 (0.0-2.0); Blast Cells 0; Eosinophils % (manual) 0 (0-7); Metamyelocytes % 0; Myelocytes % 0; Promyelocytes % 0
[2025-01-26 14:48] LABS: Lymphocytes % (manual) 55 (10.0-50.0); Monocytes % (manual) 6 (0-12); Platelet Estimate Adequate; Reactive Lymphocytes 1
== END | disposition home or self-care (01) ==
LOC: LAB 13:21
PROVIDERS: ATTEND Internal Medicine
DX: D72.818 Other decreased white blood cell count (principal)
CPT/HCPCS: 36415; 80053; 85007; 85027

== ENCOUNTER → 2025-04-27 | Outpatient (CLI) | payer MEDICARE, OTHER | END | disposition home or self-care (01) | LOC: LAB 08:24 | PROVIDERS: ATTEND Internal Medicine | DX: E11.9 Type 2 diabetes mellitus without complications (principal); E03.9 Hypothyroidism, unspecified; Z87.19 Personal history of other diseases of the digestive system | CPT/HCPCS: 36415; 82270; 83036; 84443 ==

== ENCOUNTER 2025-06-05 18:46 | Emergency (ER) | payer MEDICARE, OTHER ==
[~2025-06-05] VITALS: Ht 165.1 cm; Wt 78.0 kg
[2025-06-05] MEDS ORDERED: ZOFR4T PO (20:27)
[2025-06-05] MEDS ORDERED: MECL1TAB42 PO (20:27)
--- NOTE | 2025-06-05 20:27 | ED.PDOC ---
History of Present Illness HPI Comments 74-year-old female with a history of CAD status post PTCA, hypertension, COPD, dyslipidemia, diabetes, CHF, arthritis, hypothyroid and prior [place] brought in by private car complaining of dizziness for the last week, associated with nausea. Patient states she feels like the room is flipping, when lying down and also when trying to sit up or stand from a lying down position. She states that she does not feel dizzy when she is ambulating, driving or in a upright seated position. She also notes mild discomfort described as popping, in both ears, however denies ear pain, fever, vision changes or focal weakness. Chief Complaint: Dizziness Time Seen by MD: 19:48 Primary Care Provider: HILDA Reviewed Notes: Nurses Notes Allergies: Coded Allergies: Morphine (Verified Allergy, Unknown, 10/11/22) Home Meds Active Scripts Ondansetron Odt 4MG Tab (ZOFRAN PO) 4 Mg Tb, 4 MG PO TID PRN, #30 TAB Prn nausea/vomiting ODT TAB-DISSOLVE IN MOUTH, THEN SWALLOW Prov:BETZY TORREZ MD 06/05/25 Meclizine HCl (Meclizine 25) 25 Mg Tab, 25 MG PO TID PRN, #30 TAB Prn dizziness Prov:BETZY TORREZ MD 06/05/25 Metronidazole (Flagyl) 500 Mg Tab, 500 MG PO TID for 5 Days, #15 TAB Prov:LION HOPPER MD 01/14/25 Levofloxacin Hemihydrate (LEVAQUIN 500 MG) 500 Mg Tab, 500 MG PO DAILY for 5 Days, #5 TAB Prov:LION HOPPER MD 01/14/25 Docusate Sodium (Docusate Sodium) 100 Mg Cap, 100 MG PO BID for 20 Days, #40 CAP Prov:LEXIE PALAFOX NP 01/04/24 Ondansetron Odt 4MG Tab (ZOFRAN PO) 4 Mg Tb, 4 MG PO BID for 7 Days, #14 TAB ODT TAB-DISSOLVE IN MOUTH, THEN SWALLOW Prov:BRANDYN DOMINGUEZ MD 04/19/23 Meclizine Hcl (Meclizine Hcl) 25 Mg Tab, 25 MG PO Q8HPRN PRN, #30 TAB 1 Refill Prov:CHANTEL BOYD MD 10/17/22 Ibuprofen (Ibuprofen) 600 Mg Tab, 1 TAB PO TID, #30 TAB Prov:ELIZA PETERS NP 10/11/22 Aspirin (Aspirin Low Dose) 81 Mg Tab, 81 MG PO DAILY for 30 Days, #30 TAB Prov:IQRA QUINONES MD 08/02/22 Reported Medications Atorvastatin Calcium (ATORVASTATIN CALCIUM) 20 Mg Tab, 1 TAB PO DAILY 01/12/25 Levothyroxine Sodium (Levothyroxine Sodium) 112 Mcg Tab, 1 TAB PO DAILY 01/12/25 Atenolol (Atenolol) 25 Mg Tab, 1 TAB PO BID 01/21/24 Estradiol Vaginal (Estradiol) 0.1 Mg/Gm Cre, 0.5 MG VA DAILY Apply 0.5 gram/pea sized amount to labia and vagina daily. 01/21/24 Diclofenac Sodium (Topical) (Voltaren Arthritis Pain) 1 % Gel, 2 GRAMS TOP QID Apply 2 grams topically fours times daily to affected areas. 01/21/24 Hydrocodone-Acetaminophen (Hydrocodone Bitartrate/AC 10-325 mg) 1 Tab Tab, 1 TAB PO TID 12/27/23 Potassium Chloride (Klor-Con M20) 20 Meq Tab, 1 TAB PO BID 04/05/23 Fexofenadine Hcl (Fexofenadine Hcl) 60 Mg Tab, 180 MG PO DAILY for 30 Days, MG 04/05/23 Dicyclomine Hcl (BENTYL CAPSULE) 10 Mg Cp, 1 CAP PO BID, #60 CAP 11 Refills 10/12/22 Spironolactone (Aldactone) 25 Mg Tab, 1 TAB PO DAILY, #90 TAB 1 Refill 10/12/22 Sucralfate (Sucralfate) 1 Gm Tab, 1 GM PO QID, GM 08/01/22 Lactulose (Enulose) 10 Gm/15 Ml Yandy, 10 GM PO DAILY, ML 08/01/22 Metformin Hydrochloride (Metformin Hcl) 500 Mg Tab, 1 TAB PO BID 12/29/21 Ezetimibe (Ezetimibe) 10 Mg Tab, 1 TAB PO DAILY 12/29/21 Cyclosporine (Ophth) (Restasis) 0.05 % Emu, 1 DROP EACHEYE BID, #60 VIAL 3 Refills 06/08/21 Ubrogepant (Ubrelvy) 50 Mg Tab, 50 MG PO DAILYPRN PRN for FOR HEADACHE Take 1 tablet by mouth once. May repeat dose once after 2 hours if needed. 06/08/21 Alendronate Sodium (Fosamax) 70 Mg Tab, 1 TAB PO QWEEKLY, #4 TAB 11 Refills 06/08/21 Gabapentin (Gabapentin) 300 Mg Cap, 300 MG PO DAILY for 30 Days, MG 06/08/21 Ferrous Sulfate (Ferosul) 325 Mg Tab, 325 MG PO DAILY, TAB 06/08/21 Ascorbic Acid (VITAMIN C TABLET) 500 Mg Tb, 1 TAB PO DAILY, #30 TAB 3 Refills 06/08/21 Hydrochlorothiazide (Hydrochlorothiazide) 25 Mg Tab, 25 MG PO DAILY for 30 Days, MG 06/08/21 Amlodipine Besylate-Benazepril (AMLODIPINE BESYLATE/BENAZ) 1 Cap Cap, 1 CAP PO DAILY, #30 CAP 5 Refills 01/21/21 Famotidine (Famotidine) 40 Mg Tab, 40 MG PO HS, TAB 04/14/20 Ergocalciferol (VITAMIN D 24688 UNIT) 50,000 [place], [address] UNIT PO QWEEKLY, CAP 50,000 UNIT PO QFRIDAY 04/14/20 Nitroglycerin (NTROSTAT SUBLINGUAL) 0.4 Mg Sl, 0.4 MG SL PRN, TAB *MAY REPEAT EVERY 5 MINUTES X 3 TOTAL IF NO RELIEF, INITIATE ANALGESIC THERAPY. NOTIFY PHYSICIAN *Do not crush. 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 History Family History Family History: Reviewed,noncontributory to illness Social History Smoker: Non-Smoker Alcohol: Denies ETOH Use Drugs: Denies Drug Use Lives In: Home Constitutional: denies: chills, diaphoresis, fatigue, fever, malaise, sweats, weakness, others EENTM: reports: ear ringing; denies: blurred vision, double vision, ear bleeding, ear discharge, ear drainage, ear pain, eye pain, eye redness, hearing loss, mouth pain, mouth swelling, nasal discharge, nose bleeding, nose congestion, nose pain, photophobia, tearing, throat pain, throat swelling, voice changes, others Respiratory: denies: cough, hemoptysis, orthopnea, SOB at rest, shortness of breath, SOB with excertion, stridor, wheezing, others Cardiovascular: denies: chest pain, dizzy spells, diaphoresis, Dyspnea on exertion, edema, irregular heart beat, left arm pain, lightheadedness, palpitations, PND, syncope, others Gastrointestinal: reports: nausea; denies: abdomen distended, abdominal pain, blood streaked bowels, constipated, diarrhea, dysphagia, difficulty swallowing, hematemesis, melena, poor appetite, poor fluid intake, rectal bleeding, rectal pain, vomiting, others Genitourinary: denies: abnormal vagina bleeding, burning, dyspareunia, dysuria, flank pain, frequency, hematuria, incontinence, pain, , vagina discharge, urgency, others Neurological: reports: dizziness; denies: fainting, headache, left sided numbness, left sided weakness, numbness, paresthesia, pre-existing deficit, right sided numbness, right sided weakness, seizure, speech problems, tingling, tremors, weakness, others Musculoskeletal: denies: back pain, gout, joint pain, joint swelling, muscle pain, muscle stiffness, neck pain, others Integumetry: denies: bruises, change in color, change in hair/nails, dryness, laceration, lesions, lumps, rash, wounds, others Allergic/Immunocompromised: denies: Difficulty Healing, Frequent Infections, Hives, Itching, others Hematologic/Lymphatic: denies: anemia, blood clots, easy bleeding, easy bruising, swollen glands, others Endocrine: denies: excessive hunger, excessive sweating, excessive thirst, excessive urination, flushing, intolerance to cold, intolerance to heat, unexplained weight gain, unexplained weight loss, others Psychiatric: denies: anxiety, bipolar disorder, depression, hopeless, panic disorder, schizophrenia, sleepless, suicidal, others All Other Systems: Reviewed and Negative (Comprehensive systems review obtained and negative except for what is stated in the HPI.) Physical Exam General Appearance: No Apparent Distress HEENT: Other (Pupils and face symmetric. Moist mucous membranes. Bilateral TMs and canals unremarkable. No fluid visualized behind bilateral TMs.) Neck: Full Range of Motion, Normal Inspection Respiratory: Lungs Clear, No Accessory Muscle Use, No Respiratory Distress, Normal Breath Sounds Cardiovascular: No Edema, No JVD, Regular Rate/Rhythm Breast Exam: Deferred Gastrointestinal: Non Tender, Soft Genitalia: Deferred Pelvic: Deferred Rectal: Deferred Extremities: Normal inspection, Normal range of motion, Non-tender, No pedal edema Neurologic: Alert (Oriented x4), Normal Affect, Normal Mood, Other (Ambulatory without difficulty. No gross focal deficit.) Cerebellar Function: NOT DONE Reflexes: NOT DONE Skin: Dry, Normal Color, Warm Lymphatic: NOT DONE Was a procedure done? Was a procedure done?: No EKG EKG : Comments Sinus rhythm, rate 78, normal intervals, left axis deviation, possible old anteroseptal infarct, nonspecific T change. Differential Dx Considerations may include: Positional vertigo, Meniere's disease, CVA, TIA, infection such as UTI, electrolyte imbalance, hypovolemia/orthostasis, among others X-Ray, Labs, Meds, VS Vital Signs Date Time Temp Pulse Resp B/P (MAP) Pulse Ox O2 Delivery O2 Flow Rate FiO2 06/05/25 20:50 75 17 98 Room Air 06/05/25 20:50 97.9 75 16 140/85 (103) 98 97.9 06/05/25 19:08 78 06/05/25 18:48 97.9 80 18 141/90 98 97.9 Lab Test 06/05/25 22:02 06/05/25 21:45 06/05/25 20:48 Range/Units Urine Color Yellow Yellow Urine Clarity Turbid H Clear Urine pH 6.0 5.0-9.0 Urine Specific [place] 1.027 1.001-1.035 Urine Protein Negative Negative Urine Ketones Negative Negative Urine Blood Negative Negative /uL Urine Nitrite Negative Negative Urine Bilirubin Negative Negative Urine Urobilinogen +1 Negative mg/dL Urine Leukocyte Esterase Negative Negative /uL Urine Glucose Normal Normal mg/dL Troponin I High Sensitivity < 3 L 3 L </=34 ng/L White Blood Count 5.6 4.4-10.8 10^3/uL Red Blood Count 4.30 4.0-5.20 10^6/uL Hemoglobin 12.5 12.2-16.2 g/dL Hematocrit 37.5 36.0-46.0 % Mean Corpuscular Volume 87.1 80.0-100.0 fL Mean Corpuscular Hemoglobin 29.1 28.0-32.0 pg Mean Corpuscular Hemoglobin Concent 33.4 32.0-36.0 g/dL Red Cell Distribution Width 14.4 H 11.8-14.3 % Platelet Count 201 140-450 10^3/uL Mean Platelet Volume 8.2 6.9-10.8 fL Neutrophils (%) (Auto) 41.6 37.0-80.0 % Lymphocytes (%) (Auto) 47.2 10.0-50.0 % Monocytes (%) (Auto) 8.4 0.0-12.0 % Eosinophils (%) (Auto) 1.5 0.0-7.0 % Basophils (%) (Auto) 1.3 0.0-2.0 % Neutrophils # (Auto) 2.3 1.6-8.6 10 ^3/uL Lymphocytes # (Auto) 2.7 0.4-5.4 10 ^3/uL Monocytes # (Auto) 0.5 0-1.3 10 ^3/uL Eosinophils # (Auto) 0.1 0-0.8 10 ^3/uL Basophils # (Auto) 0.1 0-0.2 10 ^3/uL Nucleated Red Blood Cells 0.0 % Sodium Level 143 136-145 mmol/L Potassium Level 3.7 3.5-5.1 mmol/L Chloride Level 111 H 98-107 mmol/L Carbon Dioxide Level 24 20-31 mmol/L Anion Gap 8 5-15 Blood Urea Nitrogen 13 9-23 mg/dL Creatinine 1.01 0.550-1.02 mg/dL Glomerular Filtration Rate Calc 59 >90 mL/min BUN/Creatinine Ratio 12.9 10.0-20.0 Serum Glucose 108 H 74-106 mg/dL Calcium Level 9.5 8.7-10.4 mg/dL B-Type Natriuretic Peptide 78.58 0-100 pg/mL Current Medications Medications (Trade) Dose Ordered Sig/Deborah Route Start Time Stop Time Status Last Admin Meclizine HCl (Antivert Tablet) 50 mg ONCE ONCE PO 06/05/25 20:30 06/05/25 20:31 DC 06/05/25 20:48 Ondansetron HCl (Zofran Po) 4 mg ONCE ONCE PO 06/05/25 20:30 06/05/25 20:31 DC 06/05/25 20:49 Acetaminophen/ Hydrocodone Bitart (Sandy 5/325MG Tab) 1 tab ONCE ONCE PO 06/05/25 20:30 06/05/25 20:31 DC 06/05/25 20:48 PROCEDURE(s): HWOCT - HEAD WITHOUT CONTRAST REASON: dizziness ORDER NUMBER(s): [id number], ACCESSION NUMBER(s): [id number] CT BRAIN WITHOUT CONTRAST HISTORY: dizziness TECHNIQUE: Axial scans were obtained from the skull base through the vertex without contrast. Sagittal and coronal reformats were generated. One or more of the following radiation dose reduction techniques were used for this examination: automated exposure control, adjustment of the mA and/or kV according to patient size, use of iterative reconstruction technique. COMPARISON: MRI BRAIN HEAD WO CONTRAST on DOS: 04/04/23, CT HEAD WITHOUT CONTRAST on DOS: 04/03/23, CT HEAD WITHOUT CONTRAST on DOS: 02/08/23 FINDINGS: No acute intracranial hemorrhage or evidence of large vessel territorial infarction identified at this time. No midline shift. The basilar cisterns are patent. Dickens-white differentiation appears relatively preserved. The visualized paranasal sinuses and mastoid air cells are clear. No grossly displaced calvarial abnormalities identified. IMPRESSION: No acute intracranial findings. X-Ray, Labs, Meds, VS Comment 74-year-old female with a history of CAD status post PTCA, hypertension, COPD, dyslipidemia, diabetes, CHF, arthritis, hypothyroid and prior [place] brought in by private car complaining of dizziness for the last week, associated with nausea. Vitals remarkable for BP 141/90 Exam unremarkable Rhythm strip independently interpreted by me: Sinus rhythm, rate 78, no ectopy. CT head no acute intracranial findings CBC, basic metabolic panel, BNP, 2 serial troponins, UA unremarkable Patient treated with the following in the ED: Meclizine 50 mg p.o., Zofran ODT 4 mg p.o. On re-evaluation, patient demonstrates no new neurologic changes. Vitals were stable. She is ambulatory without difficulty. Hospitalization was considered, however patient had rapid improvement of symptoms with treatment in the ED, and I no longer feel hospitalization is necessary. Patient now appears stable for discharge with close outpatient follow-up with her primary physician. Rx meclizine, Zofran Time of 1ST Reevaluation: 20:33 Reevaluation 1ST: Unchanged Patient Education/Counseling: Diagnosis, Treatment, Need For Follow Up Family Education/Counseling: No Family Present SEPSIS Sepsis Screen Date sepsis recognized/suspect: Jun 05, 2025 Time Sepsis recognized/suspect: 1848 Recent Procedure: No On Antibiotic Therapy: No Respiratory Rate >20: No Heart Rate >90: No Temp<36 C (96.8 F) or >38.3 C: No SBP <90 or MAP <65 mmHG: No New Acute Mental Status Change: No Is the patient on CPAP, BIPAP,: No Physician Orders Electrocardigram (06/05/25 19:12) Head Without Contrast (06/05/25 20:23) Vital Signs Date Time Temp Pulse Resp B/P (MAP) Pulse Ox O2 Delivery O2 Flow Rate FiO2 06/05/25 20:50 75 17 98 Room Air 06/05/25 20:50 97.9 75 16 140/85 (103) 98 97.9 06/05/25 19:08 78 06/05/25 18:48 97.9 80 18 141/90 98 97.9 Laboratory Tests Test 06/05/25 20:48 White Blood Count 5.6 10^3/uL (4.4-10.8) Medications Medications Dose Ordered Sig/Deborah Route Start Time Stop Time Status Last Admin Dose Admin Acetaminophen/ Hydrocodone Bitart 1 tab ONCE ONCE PO 06/05/25 20:30 06/05/25 20:31 DC 06/05/25 20:48 Meclizine HCl 50 mg ONCE ONCE PO 06/05/25 20:30 06/05/25 20:31 DC 06/05/25 20:48 Ondansetron HCl 4 mg ONCE ONCE PO 06/05/25 20:30 06/05/25 20:31 DC 06/05/25 20:49 Departure 1 Departure Time of Disposition: 23:45 Impression: Primary Impression: Positional vertigo Disposition: 01 HOME / SELF CARE / HOMELESS Condition: Stable Additional Instructions: Your blood and urine tests were unremarkable. Your head CT was unremarkable. I have prescribed medication for your symptoms. Follow-up with your primary doctor in 1-2 days. Return to ER for persistent or worsening symptoms. [facility] [id number] [facility] [address] Ph: [phone] DIAGNOSTIC IMAGING Diagnostic Imaging Report : [id number] Signed PATIENT: CARLOS HUANG ACCT: [id number] UNIT: [id number] : 1950 LOC: ER ROOM / BED: / AGE / SEX: 74 / F ADM STATUS: REG ER SERVICE 22 ORDERING PHYSICIAN: BETZY TORREZ MD PROCEDURE(s): HWOCT - HEAD WITHOUT CONTRAST REASON: dizziness ORDER NUMBER(s): [id number], ACCESSION NUMBER(s): [id number] CT BRAIN WITHOUT CONTRAST HISTORY: dizziness TECHNIQUE: Axial scans were obtained from the skull base through the vertex without contrast. Sagittal and coronal reformats were generated. One or more of the following radiation dose reduction techniques were used for this examination: automated exposure control, adjustment of the mA and/or kV according to patient size, use of iterative reconstruction technique. COMPARISON: MRI BRAIN HEAD WO CONTRAST on DOS: 04/04/23, CT HEAD WITHOUT CONTRAST on DOS: 04/03/23, CT HEAD WITHOUT CONTRAST on DOS: 02/08/23 FINDINGS: No acute intracranial hemorrhage or evidence of large vessel territorial infarction identified at this time. No midline shift. The basilar cisterns are patent. Dickens-white differentiation appears relatively preserved. The visualized paranasal sinuses and mastoid air cells are clear. No grossly displaced calvarial abnormalities identified. IMPRESSION: No acute intracranial findings. e-Prescriptions Ondansetron Odt 4MG Tab (ZOFRAN PO) 4 Mg Tb 4 MG PO TID PRN, #30 TAB Prn nausea/vomiting ODT TAB-DISSOLVE IN MOUTH, THEN SWALLOW Prov: BETZY TORREZ MD 06/05/25 Meclizine HCl (Meclizine 25) 25 Mg Tab 25 MG PO TID PRN, #30 TAB Prn dizziness Prov: BETZY TORREZ MD 06/05/25 Discharged With: Relative Critical Care Note Critical Care Time?: No Stability Stability form required: No Heart Score Heart Score: Heart Score Response (Comments) Value History N/A 0 EKG N/A 0 Age N/A 0 Risk Factors N/A 0 Troponin N/A 0 Total 0 I personally scribed for BETZY TORREZ MD ([email or web address]) on 06/05/25 at 20:27. Electronically submitted by Kailash Connolly ([facility] I personally scribed for BETZY TORREZ MD ([email or web address]) on 06/05/25 at 20:44. Electronically submitted by Kailash Connolly ([facility] BETZY TORREZ MD Jun 05, 2025 20:27
[2025-06-05] MEDS: HYDROcodone-ACET 5/325MG TAB PO ONE (20:48)
[2025-06-05] MEDS: MECLIZINE HCL 25 MG TAB PO ONE (20:48)
[2025-06-05] MEDS: ONDANSETRON ODT 4 MG TAB PO ONE (20:49)
[2025-06-05 20:50] VITALS: BP 140/85; PULSE 75; RESP 17; TEMP 97.9; O2SAT 98
[2025-06-05 21:03] LABS: Hematocrit 37.5 % (36.0-46.0); Hemoglobin 12.5 g/dL (12.2-16.2); Mean Corpuscular Hemoglobin 29.1 pg (28.0-32.0); Mean Corpuscular Volume 87.1 fL (80.0-100.0); Nucleated Red Blood Cells % 0.0 %
[2025-06-05 21:09] LABS: Anion Gap 8 (5-15); Carbon Dioxide 24 mmol/L (20-31); Potassium 3.7 mmol/L (3.5-5.1); Sodium 143 mmol/L (136-145)
[2025-06-05 21:10] LABS: Calcium 9.5 mg/dL (8.7-10.4); Chloride 111 mmol/L (98-107)
[2025-06-05 21:15] LABS: BUN/Creatinine Ratio 12.9 (10.0-20.0); Blood Urea Nitrogen 13 mg/dL (9-23)
--- NOTE | 2025-06-05 21:22 | DVH ---
CT BRAIN WITHOUT CONTRAST HISTORY: dizziness TECHNIQUE: Axial scans were obtained from the skull base through the vertex without contrast. Sagitta l and coronal reformats were generated. One or more of the following radiation dose reduction techniq ues were used for this examination: automated exposure control, adjustment of the mA and/or kV accord ing to patient size, use of iterative reconstruction technique. COMPARISON: MRI BRAIN HEAD WO CONTRAST on DOS: 04/04/23, CT HEAD WITHOUT CONTRAST on DOS: 04/03/23, CT HE AD WITHOUT CONTRAST on DOS: 02/08/23 FINDINGS: No acute intracranial hemorrhage or evidence of large vessel territorial infarction identified at thi s time. No midline shift. The basilar cisterns are patent. Dickens-white differentiation appears relati vely preserved. The visualized paranasal sinuses and mastoid air cells are clear. No grossly displaced calvarial abno rmalities identified. IMPRESSION: No acute intracranial findings.
[2025-06-05 21:27] LABS: Glucose 108 mg/dL (74-106)
[2025-06-05 22:40] LABS: Urine Protein, UAD Negative (Negative)
--- NOTE | 2025-06-08 06:49 | ECG ---
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
== END 2025-06-05 23:20 | disposition home or self-care (01) ==
LOC: ER 19:04
DX: H81.13 Benign paroxysmal vertigo, bilateral (principal); I11.0 Hypertensive heart disease with heart failure; I50.9 Heart failure, unspecified; E11.9 Type 2 diabetes mellitus without complications; M19.90 Unspecified osteoarthritis, unspecified site; I25.10 Atherosclerotic heart disease of native coronary artery without angina pectoris; Z79.899 Other long term (current) drug therapy; Z79.82 Long term (current) use of aspirin; Z88.5 Allergy status to narcotic agent; Z90.710 Acquired absence of both cervix and uterus
CPT/HCPCS: 36415; 70450; 80048; 81003; 82947; 83880; 84484; 85025; 93005; 99284; J8597; Q0162

== ENCOUNTER 2025-06-10 18:32 | Emergency (ER) | payer MEDICARE, OTHER ==
[~2025-06-10] VITALS: Ht 165.1 cm; Wt 80.4 kg
[~2025-06-10 18:32] MED LIST changes: +MECL1TAB42 PO
--- NOTE | 2025-06-10 19:09 | ED.PDOC ---
History of Present Illness HPI Comments 74-year-old female who presents with chief complaint of palpitations, generalized left side of numbness, tingling, and pain, generalized weakness, lightheadedness, shortness of breath, and bilateral neck pain. Significant history of arthritis, CAD, diastolic CHF, COPD, DM, HLD, HTN, [place], PUD, hypothyroidism, and 2x PTCA's. Patient reports 2 day history of palpitations that is provoked whenever she is lying on her side or in a pronated position. She also endorses on 3 day history of remaining symptoms. Pain to her left side is described as burning and aching in quality. Patient reports on being seen on June 05, 2025, recently, for dizziness; she was told on having possible vertigo. Patient denies having any chest pain, dizziness, fever, chills, or further associated symptoms. REVIEW OF SYSTEMS: General: No fever, no chills, or fatigue HEENT: No sore throat, no earache, no congestion, no neck pain. Cardiac: Palpitations. Lightheadedness No chest pain. Lungs: shortness of breath, no cough. GI: No nausea, no vomiting, no diarrhea, no constipation, no abdominal pain : No dysuria, frequency, or urgency. No hematuria. Musculoskeletal: Generalized left-sided pain, bilateral neck pain. no joint swelling, no extremity edema. Skin: No rash, no itching. Neuro: Generalized left-sided numbness and tingling, generalized weakness, No headache, no dizziness, PHYSICAL EXAM: General: Awake, alert and oriented. No acute distress. Skin: Skin in warm, dry and intact. Appropriate color for ethnicity. HEENT: The head is normocephalic and atraumatic. Conjunctivae are clear without exudates or hemorrhage. Sclera is non-icteric. EOM are intact. No signs of nystagmus. Eyelids are normal in appearance without swelling or lesions. Oral mucosa is pink and moist Neck: The neck is supple with normal range of motion. No JVD. Cardiac: Heart rate and rhythm are normal. No murmurs, gallops, or rubs are auscultated. Respiratory: No signs of respiratory distress. Lung sounds are clear in all lobes bilaterally without rales, rhonchi, or wheezes. Abdominal: Abdomen is soft, non-tender without distention, guarding or rigidity. Bowel sounds are present and normoactive in all four quadrants. Extremities: Left posterior calf tenderness. Otherwise, remaining upper and lower extremities are atraumatic in appearance without deformity or edema. Neurological: The patient is awake, alert and oriented to person, place, and time with normal speech. Speech is clear. There is no facial asymmetry. Psychiatric: Appropriate mood and affect. Good judgement and insight. Chief Complaint: Chest Pain Time Seen by MD: 19:00 Primary Care Provider: HILDA Reviewed Notes: Nurses Notes, Medications, Allergies Allergies: Coded Allergies: Morphine (Verified Allergy, Unknown, 10/11/22) Home Meds Active Scripts Ondansetron Odt 4MG Tab (ZOFRAN PO) 4 Mg Tb, 4 MG PO TID PRN, #30 TAB Prn nausea/vomiting ODT TAB-DISSOLVE IN MOUTH, THEN SWALLOW Prov:BETZY TORREZ MD 06/05/25 Meclizine HCl (Meclizine 25) 25 Mg Tab, 25 MG PO TID PRN, #30 TAB Prn dizziness Prov:BETZY TORREZ MD 06/05/25 Metronidazole (Flagyl) 500 Mg Tab, 500 MG PO TID for 5 Days, #15 TAB Prov:LION HOPPER MD 01/14/25 Levofloxacin Hemihydrate (LEVAQUIN 500 MG) 500 Mg Tab, 500 MG PO DAILY for 5 Days, #5 TAB Prov:LION HOPPER MD 01/14/25 Docusate Sodium (Docusate Sodium) 100 Mg Cap, 100 MG PO BID for 20 Days, #40 CAP Prov:LEXIE PALAFOX NP 01/04/24 Ondansetron Odt 4MG Tab (ZOFRAN PO) 4 Mg Tb, 4 MG PO BID for 7 Days, #14 TAB ODT TAB-DISSOLVE IN MOUTH, THEN SWALLOW Prov:BRANDYN DOMINGUEZ MD 04/19/23 Meclizine Hcl (Meclizine Hcl) 25 Mg Tab, 25 MG PO Q8HPRN PRN, #30 TAB 1 Refill Prov:CHANTEL BOYD MD 10/17/22 Ibuprofen (Ibuprofen) 600 Mg Tab, 1 TAB PO TID, #30 TAB Prov:ELIZA PETERS NP 10/11/22 Aspirin (Aspirin Low Dose) 81 Mg Tab, 81 MG PO DAILY for 30 Days, #30 TAB Prov:IQRA QUINONES MD 08/02/22 Reported Medications Atorvastatin Calcium (ATORVASTATIN CALCIUM) 20 Mg Tab, 1 TAB PO DAILY 01/12/25 Levothyroxine Sodium (Levothyroxine Sodium) 112 Mcg Tab, 1 TAB PO DAILY 01/12/25 Atenolol (Atenolol) 25 Mg Tab, 1 TAB PO BID 01/21/24 Estradiol Vaginal (Estradiol) 0.1 Mg/Gm Cre, 0.5 MG VA DAILY Apply 0.5 gram/pea sized amount to labia and vagina daily. 01/21/24 Diclofenac Sodium (Topical) (Voltaren Arthritis Pain) 1 % Gel, 2 GRAMS TOP QID Apply 2 grams topically fours times daily to affected areas. 01/21/24 Hydrocodone-Acetaminophen (Hydrocodone Bitartrate/AC 10-325 mg) 1 Tab Tab, 1 TAB PO TID 12/27/23 Potassium Chloride (Klor-Con M20) 20 Meq Tab, 1 TAB PO BID 04/05/23 Fexofenadine Hcl (Fexofenadine Hcl) 60 Mg Tab, 180 MG PO DAILY for 30 Days, MG 04/05/23 Dicyclomine Hcl (BENTYL CAPSULE) 10 Mg Cp, 1 CAP PO BID, #60 CAP 11 Refills 10/12/22 Spironolactone (Aldactone) 25 Mg Tab, 1 TAB PO DAILY, #90 TAB 1 Refill 10/12/22 Sucralfate (Sucralfate) 1 Gm Tab, 1 GM PO QID, GM 08/01/22 Lactulose (Enulose) 10 Gm/15 Ml Yandy, 10 GM PO DAILY, ML 08/01/22 Metformin Hydrochloride (Metformin Hcl) 500 Mg Tab, 1 TAB PO BID 12/29/21 Ezetimibe (Ezetimibe) 10 Mg Tab, 1 TAB PO DAILY 12/29/21 Cyclosporine (Ophth) (Restasis) 0.05 % Emu, 1 DROP EACHEYE BID, #60 VIAL 3 Refills 06/08/21 Ubrogepant (Ubrelvy) 50 Mg Tab, 50 MG PO DAILYPRN PRN for FOR HEADACHE Take 1 tablet by mouth once. May repeat dose once after 2 hours if needed. 06/08/21 Alendronate Sodium (Fosamax) 70 Mg Tab, 1 TAB PO QWEEKLY, #4 TAB 11 Refills 06/08/21 Gabapentin (Gabapentin) 300 Mg Cap, 300 MG PO DAILY for 30 Days, MG 06/08/21 Ferrous Sulfate (Ferosul) 325 Mg Tab, 325 MG PO DAILY, TAB 06/08/21 Ascorbic Acid (VITAMIN C TABLET) 500 Mg Tb, 1 TAB PO DAILY, #30 TAB 3 Refills 06/08/21 Hydrochlorothiazide (Hydrochlorothiazide) 25 Mg Tab, 25 MG PO DAILY for 30 Days, MG 06/08/21 Amlodipine Besylate-Benazepril (AMLODIPINE BESYLATE/BENAZ) 1 Cap Cap, 1 CAP PO DAILY, #30 CAP 5 Refills 01/21/21 Famotidine (Famotidine) 40 Mg Tab, 40 MG PO HS, TAB 04/14/20 Ergocalciferol (VITAMIN D 78417 UNIT) 50,000 [place], [address] UNIT PO QWEEKLY, CAP 50,000 UNIT PO QFRIDAY 04/14/20 Nitroglycerin (NTROSTAT SUBLINGUAL) 0.4 Mg Sl, 0.4 MG SL PRN, TAB *MAY REPEAT EVERY 5 MINUTES X 3 TOTAL IF NO RELIEF, INITIATE ANALGESIC THERAPY. NOTIFY PHYSICIAN *Do not crush. 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 Was a procedure done?: No EKG EKG : Pulse Rate (adult): 71 Raymond: Normal Cardiac Rhythm: NSR Block: None Hypertrophy: None ST: Normal Comments No STEMI Differential Dx Considerations may include: - but is not limited to - SVT, AFib, V-tach, WPW, long QT syndrome, torsades de pointes, myocardial infarction, hypertrophic cardiomyopathy, pulmonary embolism, electrolyte abnormality, drug induced, premature atrial contractions, premature ventricular contractions, sinus tachycardia, pericarditis, myocarditis, hyperthyroidism, hypoglycemia, anxiety, somatization, anemia, substance related autonomic dysfunction, hypovolemia, other. X-Ray, Labs, Meds, VS Vital Signs Date Time Temp Pulse Resp B/P (MAP) Pulse Ox O2 Delivery O2 Flow Rate FiO2 06/11/25 02:05 98.5 62 18 129/76 (93) 100 98.5 06/10/25 19:45 71 06/10/25 19:08 71 06/10/25 18:34 98.2 79 15 132/91 99 98.2 Lab Test 06/10/25 19:39 06/10/25 18:50 06/10/25 18:47 Range/Units Troponin I High Sensitivity < 3 L < 3 L </=34 ng/L POC Glucose 102 70-106 mg/dl White Blood Count 5.6 4.4-10.8 10^3/uL Red Blood Count 4.49 4.0-5.20 10^6/uL Hemoglobin 13.1 12.2-16.2 g/dL Hematocrit 39.2 36.0-46.0 % Mean Corpuscular Volume 87.3 80.0-100.0 fL Mean Corpuscular Hemoglobin 29.1 28.0-32.0 pg Mean Corpuscular Hemoglobin Concent 33.4 32.0-36.0 g/dL Red Cell Distribution Width 14.8 H 11.8-14.3 % Platelet Count 211 140-450 10^3/uL Mean Platelet Volume 8.8 6.9-10.8 fL Neutrophils (%) (Auto) 33.9 L 37.0-80.0 % Lymphocytes (%) (Auto) 55.9 H 10.0-50.0 % Monocytes (%) (Auto) 7.7 0.0-12.0 % Eosinophils (%) (Auto) 1.6 0.0-7.0 % Basophils (%) (Auto) 0.9 0.0-2.0 % Neutrophils # (Auto) 1.9 1.6-8.6 10 ^3/uL Lymphocytes # (Auto) 3.1 0.4-5.4 10 ^3/uL Monocytes # (Auto) 0.4 0-1.3 10 ^3/uL Eosinophils # (Auto) 0.1 0-0.8 10 ^3/uL Basophils # (Auto) 0 0-0.2 10 ^3/uL Nucleated Red Blood Cells 0.2 % D-Dimer, Quantitative 0.76 H 0.0-0.49 mg/L FEU Sodium Level 144 136-145 mmol/L Potassium Level 3.8 3.5-5.1 mmol/L Chloride Level 110 H 98-107 mmol/L Carbon Dioxide Level 25 20-31 mmol/L Anion Gap 9 5-15 Blood Urea Nitrogen 17 9-23 mg/dL Creatinine 1.13 H 0.550-1.02 mg/dL Glomerular Filtration Rate Calc 52 >90 mL/min BUN/Creatinine Ratio 15.0 10.0-20.0 Serum Glucose 106 74-106 mg/dL Calcium Level 9.1 8.7-10.4 mg/dL B-Type Natriuretic Peptide 54.09 0-100 pg/mL Time of 1ST Reevaluation: 19:30 Reevaluation 1ST: Unchanged Patient Education/Counseling: Need For Follow Up Family Education/Counseling: No Family Present SEPSIS Sepsis Screen Date sepsis recognized/suspect: Jun 10, 2025 Time Sepsis recognized/suspect: 1835 Recent Procedure: No On Antibiotic Therapy: No Respiratory Rate >20: No Heart Rate >90: No Temp<36 C (96.8 F) or >38.3 C: No SBP <90 or MAP <65 mmHG: No New Acute Mental Status Change: No Is the patient on CPAP, BIPAP,: No Physician Orders Electrocardigram (06/10/25 19:33) Electrocardigram (06/10/25 21:33) Lt Lower Dvt (06/10/25 19:01) Chest Xray 1 View (06/10/25 19:01) Vital Signs Q1HR (06/10/25 19:01) Ct Angio Chest Contrast (06/10/25 22:12) Saline Lock (06/10/25 22:13) Vital Signs Date Time Temp Pulse Resp B/P (MAP) Pulse Ox O2 Delivery O2 Flow Rate FiO2 06/11/25 02:05 98.5 62 18 129/76 (93) 100 98.5 06/10/25 19:45 71 06/10/25 19:08 71 8/13/25 18:34 98.2 79 15 132/91 99 98.2 Laboratory Tests Test 06/10/25 18:47 White Blood Count 5.6 10^3/uL (4.4-10.8) Departure 1 Departure Time of Disposition: Impression: Primary Impression: Palpitations Disposition: HOME / SELF CARE / HOMELESS Condition: Stable Additional Instructions: ED DISCHARGE INSTRUCTIONS Instructions: Please read all instructions provided in this packet carefully. Although you have been discharged from the Emergency Department, this does not mean that you have a "clean bill of health". No definitive diagnosis for your symptoms has been made today. It is possible that you are in the process of developing a serious illness. This is why you must return to the ED without fail if any new or worsening symptoms (especially if your symptoms include chest pain, trouble breathing, abdominal pain, fever, headache, confusion, trouble seeing, or trouble walking) It is also very important that you see a primary care provider (PCP) within the next 3-5 days to follow up. If you are unable to get an appointment, return to the ED for re-evaluation. PALPITATIONS EDUCATION Heart palpitations are the uncomfortable sensation that your heart is beating fast or irregularly. You might feel pounding or fluttering in your chest. It might feel like your heart is skipping a beat. Palpitations may be caused by a heart problem. But they also occur because of many other things. These include other health problems, stress, exercise, or use of alcohol, caffeine, or nicotine. Some prescription medicines and [id number] medicines can also cause heart palpitations. Nearly everyone has palpitations from time to time. Depending on your symptoms, your doctor may need to do more tests to try to find the cause of your palpitations. Follow-up care is a sanz part of your treatment and safety. Be sure to make and go to all appointments, and call your doctor if you are having problems. It's also a good idea to know your test results and keep a list of the medicines you take. How can you care for yourself at home? If they trigger palpitations, limit or avoid alcohol or caffeine. Do not smoke. If you need help quitting, talk to your doctor about stop-smoking programs and medicines. These can increase your chances of quitting for good. Ask your doctor whether you can take shvs-dsy-[id number] medicines (such as decongestants). These may cause palpitations. If you think you may have a problem with drug use, talk to your doctor. Certain drugs, such as cocaine and methamphetamine, can affect your heart rate and rhythm. If you have palpitations again, take deep breaths and try to relax. Or try any physical things that your doctor recommended. These may include bearing down or coughing. If you start to feel lightheaded, sit or lie down to avoid injuries that might result if you pass out and fall down. If your doctor recommends it, keep a record of your palpitations and bring it to your next doctor's appointment. Write down: The date and time. Your pulse. (If your heart is beating fast, it may be hard to count your pulse.) If your heart rhythm was regular or irregular. What you were doing when the palpitations started. How long the palpitations lasted. Any other symptoms. What may have helped your symptoms go away. If an activity causes palpitations, slow down or stop. Talk to your doctor before you do that activity again. Take your medicines exactly as prescribed. Call your doctor if you think you are having a problem with your medicine. When should you call for help? Call 911 anytime you think you may need emergency care. For example, call if: You passed out (lost consciousness). You have symptoms of a heart attack. These may include: Chest pain or pressure, or a strange feeling in the chest. Sweating. Shortness of breath. Pain, pressure, or a strange feeling in the back, neck, jaw, or upper belly or in one or both shoulders or arms. Lightheadedness or sudden weakness. A fast or irregular heartbeat. After you call 911, the rotogravure press operator may tell you to chew 1 adult-strength or 2 to 4 low-dose aspirin. Wait for an ambulance. Do not try to drive yourself. You have symptoms of a stroke. These may include: Sudden numbness, tingling, weakness, or loss of movement in your face, arm, or leg, especially on only one side of your body. Sudden vision changes. Sudden trouble speaking. Sudden confusion or trouble understanding simple statements. Sudden problems with walking or balance. A sudden, severe headache that is different from past headaches. Call your doctor now or seek immediate medical care if: You have heart palpitations and: Are dizzy or lightheaded, or you feel like you may faint. Have new or increased shortness of breath. Watch closely for changes in your health, and be sure to contact your doctor if: You continue to have heart palpitations. Current as of: May 28, 2024 Author: [employer] Staff? Comments MDM: 75-year-old female who presents with palpitations, posterior left calf tenderness. EKG negative for signs of ischemia. High sensitivity troponin negative. CXR shows no acute process. CT angiogram negative for pulmonary embolism. Left lower extremity ultrasound negative for DVT. Presentation not suggestive of acute coronary syndrome, pulmonary embolism or aortic dissection. Patient improved at time of discharge. Patient has not been hypoxic, in respiratory distress or dyspneic during the ED observation. Patient able to ambulate without difficulty. Patient felt stable for discharge to follow up with PCP promptly. Patient advised to return to the ED with any new, worsening or concerning symptoms or inability to follow up with PCP. Extensive evaluation was performed in attempt to identify or rule out: (See differential diagnosis section) The following tests were ordered, and results were reviewed by me and discussed with patient: (See diagnostic results section) The following test were independently interpreted by me: EKG I reviewed and agreed with the following test results read by other providers: N/A I reviewed the following notes from the pt's past medical encounters: January 12, 2025 and June 05, 2025 encounters for colitis and positional vertigo, respectively Additional information was gathered from interviewing the following independent historians: N/A Discussion of management or test interpretation with external physician/other qualified health healthcare administrative assistant: N/A Decision regarding hospitalization or escalation of hospital level of care: Risks and benefits of admission for further treatment of patient's condition was considered however due to patient's stable condition patient will be discharged to follow up closely or return to care for worsening of condition or inability to follow up. Critical Care Note Critical Care Time?: No Stability Stability form required: No Heart Score Heart Score: Heart Score Response (Comments) Value History Moderate Suspicious 1 EKG Normal 0 Age >65 2 Risk Factors >3 or Hx ASHD 2 Troponin Normal limit 0 Total 5 I personally scribed for LAZARO LERNER MD ([email or web address]) on 06/10/25 at 19:08. Electronically submitted by Umberto Villavicencio ([email or web address]). LAZARO LERNER MD Jun 10, 2025 19:08
--- NOTE | 2025-06-10 19:32 | DVH ---
EXAM: XY CHEST XRAY 1 VIEW CLINICAL HISTORY: cp TECHNIQUE: Single AP view of the chest WID: COMPARISON: XY CHEST PORTABLE on DOS: 01/12/25 FINDINGS: Lines and tubes: None Chest: The heart size and pulmonary vasculature is within normal limits. Calcified plaque projects over the aortic arch. No pleural effusion, pneumothorax, or consolidation. The osseous structures are grossly intact. Interbody spacers are visualized in the lower cervical spi ne. IMPRESSION: No acute cardiopulmonary abnormality.
[2025-06-10 19:41] LABS: Potassium 3.8 mmol/L (3.5-5.1); Sodium 144 mmol/L (136-145)
[2025-06-10 19:42] LABS: Anion Gap 9 (5-15); Calcium 9.1 mg/dL (8.7-10.4); Carbon Dioxide 25 mmol/L (20-31)
[2025-06-10 19:43] LABS: Hematocrit 39.2 % (36.0-46.0); Hemoglobin 13.1 g/dL (12.2-16.2); Mean Corpuscular Hemoglobin 29.1 pg (28.0-32.0); Mean Corpuscular Volume 87.3 fL (80.0-100.0); Nucleated Red Blood Cells % 0.2 %
[2025-06-10 19:47] LABS: BUN/Creatinine Ratio 15.0 (10.0-20.0); Blood Urea Nitrogen 17 mg/dL (9-23); Glucose 106 mg/dL (74-106)
[2025-06-10 19:48] LABS: Chloride 110 mmol/L (98-107)
--- NOTE | 2025-06-10 21:20 | ECG ---
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
--- NOTE | 2025-06-10 21:21 | DVH ---
EXAM: US LT LOWER DVT Clinical History: Left calf pain tenderness Comparison: None Technique: Duplex Doppler evaluation of the deep venous systems of the left lower extremity from the common femo ral veins to the popliteal veins including color Doppler and spectral/pulsed waveform analysis was pe rformed. Findings: No visible intraluminal venous thrombus. No evidence of incompressibility or abnormal color or spectr al Doppler flow visualized in the deep left lower extremity veins. Proximal greater saphenous vein is grossly unremarkable. Impression: 1. No sonographic evidence of deep venous thrombosis throughout the left lower extremity from the pop liteal vein to the common femoral vein.
[2025-06-11] MEDS: IOHEXOL 350 MG/ML 100ML IJ ONE (01:11)
--- NOTE | 2025-06-11 01:15 | DVH ---
STUDY: CT CT ANGIO CHEST CONTRAST Indication: sob, elevated d-dimer TECHNIQUE: Axial images were obtained through the chest with reformat images post intravenous contr ast. Reconstruction processing of 3D angiographic images of the vessels was obtained. 80 mL of omnipaque 35mg/dl was administered. DLP: 1144 FINDINGS: PULMONARY ARTERIES: No evidence of pulmonary embolism. LUNGS AND PLEURA: No focal consolidations. Bibasilar subsegmental atelectasis. No definite pulmonary edema. No mass or nodule. No pleural effusion. No pneumothorax. MEDIASTINUM: No lymphadenopathy or mass. The heart shows no acute findings. The aorta shows no acute findings. Minimal atherosclerosis of thoracic aorta. The pulmonary trunk, an d branches of the vessels in the mediastinum are within normal limits. SUPRACLAVICULAR AND AXILLARY: No abnormalities seen in these regions. No mass or significant lymphadenopathy. UPPER ABDOMEN: 6.1 x 5.6 cm cyst within the right kidney. Small hiatal hernia. BONES AND SOFT TISSUES: The ribs are unremarkable. The visualized spine shows no significant acute findings. Cervical ACDF. No focal bony mass lesions noted. The subcutaneous soft tissues are unremarkable. IMPRESSION: 1. No acute pulmonary emboli. 2. No focal consolidations.
[2025-06-11 02:05] VITALS: BP 129/76; PULSE 62; RESP 18; TEMP 98.5; O2SAT 100
--- NOTE | 2025-06-12 11:52 | ECG ---
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
== END 2025-06-11 02:51 | disposition home or self-care (01) ==
LOC: ER 18:32
DX: R00.2 Palpitations (principal); I11.0 Hypertensive heart disease with heart failure; I50.32 Chronic diastolic (congestive) heart failure; E78.5 Hyperlipidemia, unspecified; E11.9 Type 2 diabetes mellitus without complications; I25.10 Atherosclerotic heart disease of native coronary artery without angina pectoris; E03.9 Hypothyroidism, unspecified; J44.9 Chronic obstructive pulmonary disease, unspecified; M19.90 Unspecified osteoarthritis, unspecified site; Z87.11 Personal history of peptic ulcer disease; Z79.890 Hormone replacement therapy; Z79.84 Long term (current) use of oral hypoglycemic drugs; Z79.82 Long term (current) use of aspirin; Z79.621 Long term (current) use of calcineurin inhibitor; Z79.1 Long term (current) use of non-steroidal anti-inflammatories (NSAID); Z79.899 Other long term (current) drug therapy; Z88.5 Allergy status to narcotic agent; Z90.710 Acquired absence of both cervix and uterus
CPT/HCPCS: 36415; 71045; 71275; 80048; 82947; 83880; 84484; 85025; 85379; 93005; 93971; 99285; Q9967; 82962

== ENCOUNTER 2025-07-23 11:03 | Outpatient (CLI) | payer MEDICARE, OTHER ==
[2025-07-23 11:37] LABS: Hematocrit 39.3 % (36.0-46.0); Hemoglobin 12.6 g/dL (12.2-16.2); Mean Corpuscular Hemoglobin 28.5 pg (28.0-32.0); Mean Corpuscular Volume 88.9 fL (80.0-100.0); Nucleated Red Blood Cells % 0.2 %
[2025-07-23 12:24] LABS: Cholesterol 193 mg/dL (< 200)
[2025-07-23 12:30] LABS: Triglycerides 90 mg/dL (< 150)
[2025-07-23 12:37] LABS: HDL Cholesterol 80 mg/dL (40-59)
== END 2025-07-23 17:00 | disposition home or self-care (01) ==
LOC: LAB 11:03
PROVIDERS: ATTEND Internal Medicine
DX: E11.9 Type 2 diabetes mellitus without complications (principal); E03.9 Hypothyroidism, unspecified; D72.819 Decreased white blood cell count, unspecified
CPT/HCPCS: 36415; 80061; 83036; 85025